=== PATIENT | male | born 1970 | race Caucasian/White ===

== ENCOUNTER → 2022-05-03 13:55 | Outpatient (CLI) | payer OTHER, SELFPAY ==
[2022-05-03 18:43] LABS: Basophils # 0.1 K/mm3 (0-0.2); Basophils % 1.1 % (0.1-2.0); Eosinophils # 0.1 K/mm3 (0.0-0.4); Eosinophils % 0.5 % (0.1-12.0); Hematocrit 47.8 % (42.0-52.0); Hemoglobin 15.7 g/dL (14.1-18.0); Lymphocytes # 2.7 K/mm3 (0.7-4.5); Lymphocytes % 25.4 % (10-50); Mean Corpuscular HGB Conc 32.9 g/dL (31.8-35.4); Mean Corpuscular Hemoglobin 33.7 pg (27.0-31.2); Mean Corpuscular Volume 102.3 fl (80-94); Mean Platelet Volume 9.7 fl (7.4-10.4); Monocytes # 0.5 K/mm3 (0.1-1.0); Monocytes % 4.5 % (1.7-9.3); Neutrophils # 7.2 K/mm3 (1.8-7.8); Neutrophils % 68.4 % (37.0-80.0); Platelet Count 160 K/mm3 (142-424); Red Blood Count 4.67 M/mm3 (4.60-6.20); Red Cell Distribution Width 13.6 % (11.5-17.5); White Blood Count 10.5 K/mm3 (4.8-10.8)
[2022-05-03 18:55] LABS: Hemoglobin A1C 6.2 % (4.0-6.0)
[2022-05-03 18:58] LABS: Alanine Aminotransferase 52 U/L (12-78); Albumin Level 4.4 g/dl (3.5-5.0); Albumin/Globulin Ratio 1.8 (1.1-1.8); Alkaline Phosphatase 133 U/L (38-126); Anion Gap 20.5 mEq/L (5-15); Aspartate Amino Transferase 107 U/L (17-59); Bilirubin,Total 0.9 mg/dl (0.2-1.3); Blood Urea Nitrogen 4 mg/dl (9-20); Calcium 8.9 mg/dl (8.4-10.2); Carbon Dioxide 22 mmol/L (22.0-30.0); Chloride 98 mmol/L (98-107); Chol/HDL Ratio 4.8 (1-3.5); Cholesterol 172 mg/dl (140-200); Estimated Glomerular Filt Rate 175 ml/min (>60); GFR (African American) 211 ML/MIN (>60); Globulin 2.5 g/dL (1.3-3.2); Glucose 115 mg/dl (74-100); HDL Cholesterol 36 mg/dl (40-60); Potassium 3.5 mmoL/L (3.5-5.1); Sodium 137 mmol/L (136-145); Total Protein,Serum 6.9 g/dl (6.3-8.2); Triglycerides 178 mg/dl (30-150); VLDL Cholesterol 36 mg/dL (0-40)
[2022-05-03 19:09] LABS: Direct LDL Cholesterol 109.95 mg/dL (100-129)
[2022-05-03 19:30] LABS: Prostate Specific Ag Screen 0.3 ng/ml (0.0-4.0); Thyroid Stimulating Hormone 2.93 uIU/mL (0.465-4.68)
== END ==
PROVIDERS: PCP Nurse Practitioner; Visit Provider Nurse Practitioner
DX: E11.9 Type 2 diabetes mellitus without complications (principal); Z12.5 Encounter for screening for malignant neoplasm of prostate; Z79.899 Other long term (current) drug therapy
CPT/HCPCS: 80053; 80061; 83036; 84443; 85025; G0103

== ENCOUNTER → 2022-07-01 08:49 | Outpatient (CLI) | payer OTHER, SELFPAY ==
--- NOTE | 2022-07-01 08:49 | US_ITS ---
FINAL REPORT TECHNIQUE: Ultrasound images of the abdomen were obtained. CLINICAL HISTORY: midline abdominal pain, concern for ventral hernia COMPARISON: None FINDINGS: ABDOMINAL ULTRASOUND COMPLETE: The liver is enlarged at 27 cm transverse diameter with fatty infiltration. There is moderate sludge with gallbladder wall thickening is a nonspecific finding. The common duct is normal at 3 mm. The right kidney measures 10.3 cm in length and is normal in echogenicity without hydronephrosis. The left kidney measures 12.4 cm in length and is normal in echogenicity without hydronephrosis. The spleen is borderline enlarged at 12.6 cm. The pancreas is partially obscured by overlying bowel gas. The visualized portions of the IVC are normal. The aorta is not visualized. The vena cava is unremarkable. No hernias identified. IMPRESSION: Hepatosplenomegaly with fatty infiltration. Borderline splenomegaly. No hernia identified. CT may be more sensitive exam. Reviewed, Interpreted and Dictated by Ankit Ruiz III, MD Transcribed by Hannah Varghese Authenticated and [facility]
== END ==
PROVIDERS: PCP Nurse Practitioner; Visit Provider Nurse Practitioner
DX: R10.9 Unspecified abdominal pain (principal)
CPT/HCPCS: 76700

== ENCOUNTER → 2022-07-15 13:46 | Outpatient (CLI) | payer OTHER, SELFPAY | PROVIDERS: PCP Nurse Practitioner; Visit Provider Nurse Practitioner | DX: G47.9 Sleep disorder, unspecified (principal); R40.0 Somnolence; R06.83 Snoring | CPT/HCPCS: G0399 ==

== ENCOUNTER → 2022-08-27 13:00 | Outpatient (CLI) | payer OTHER, SELFPAY ==
--- NOTE | 2022-08-27 13:04 | XR_ITS ---
FINAL REPORT CLINICAL HISTORY: right 5th finger pain, cyst COMPARISON: None FINDINGS: RIGHT HAND Three views demonstrate no acute fracture or dislocation. The visualized joint spaces are normally aligned. The soft tissues are unremarkable. IMPRESSION: No acute bony abnormality. Reviewed, Interpreted and Dictated by Roosevelt Rosen MD Transcribed by Hannah Varghese Authenticated and [facility]
== END ==
PROVIDERS: PCP Nurse Practitioner; Visit Provider Orthopaedic Surgery
DX: M79.641 Pain in right hand (principal); M67.40 Ganglion, unspecified site
CPT/HCPCS: 73130

== ENCOUNTER → 2022-10-19 11:42 | Outpatient (CLI) | payer OTHER, SELFPAY ==
[2022-10-19 18:58] LABS: Basophils # 0.1 K/mm3 (0-0.2); Basophils % 0.4 % (0.1-2.0); Eosinophils # 0.1 K/mm3 (0.0-0.4); Eosinophils % 1.1 % (0.1-12.0); Hematocrit 49.5 % (42.0-52.0); Hemoglobin 15.7 g/dL (14.1-18.0); Lymphocytes # 2.4 K/mm3 (0.7-4.5); Lymphocytes % 19.4 % (10-50); Mean Corpuscular HGB Conc 31.7 g/dL (31.8-35.4); Mean Corpuscular Hemoglobin 32.2 pg (27.0-31.2); Mean Corpuscular Volume 101.3 fl (80-94); Mean Platelet Volume 11.3 fl (7.4-10.4); Monocytes # 0.7 K/mm3 (0.1-1.0); Monocytes % 6.1 % (1.7-9.3); Neutrophils # 8.8 K/mm3 (1.8-7.8); Platelet Count 164 K/mm3 (142-424); Red Blood Count 4.88 M/mm3 (4.60-6.20); White Blood Count 12.1 K/mm3 (4.8-10.8)
[2022-10-19 19:01] LABS: Alanine Aminotransferase 39 U/L (12-78); Albumin Level 4.1 g/dl (3.5-5.0); Albumin/Globulin Ratio 1.6 (1.1-1.8); Alkaline Phosphatase 130 U/L (38-126); Anion Gap 18.2 mEq/L (5-15); Aspartate Amino Transferase 71 U/L (17-59); Bilirubin,Total 1.2 mg/dl (0.2-1.3); Blood Urea Nitrogen 4 mg/dl (9-20); Calcium 8.8 mg/dl (8.4-10.2); Carbon Dioxide 23 mmol/L (22.0-30.0); Chloride 98 mmol/L (98-107); Estimated Glomerular Filt Rate 226 ml/min (>60); GFR (African American) 273 ML/MIN (>60); Globulin 2.6 g/dL (1.3-3.2); Glucose 225 mg/dl (74-100); Lipase 202 U/L (23-300); Potassium 3.2 mmoL/L (3.5-5.1); Sodium 136 mmol/L (136-145); Total Protein,Serum 6.7 g/dl (6.3-8.2)
[2022-10-19 19:31] LABS: Thyroid Stimulating Hormone 6.63 uIU/mL (0.465-4.68)
== END ==
PROVIDERS: PCP Family Medicine; Visit Provider Family Medicine
DX: F10.10 Alcohol abuse, uncomplicated (principal); R40.0 Somnolence
CPT/HCPCS: 80053; 83690; 84443; 85025

== ENCOUNTER → 2022-12-30 08:37 | Outpatient (CLI) | payer OTHER, SELFPAY ==
--- NOTE | 2022-12-30 08:48 | XR_ITS ---
FINAL REPORT CLINICAL HISTORY: rt elbow pain COMPARISON: None FINDINGS: 3 views of the right elbow were obtained. There is no acute fracture or dislocation. The joint spaces are well preserved. There is no acute soft tissue abnormality. IMPRESSION: No acute abnormality identified. Reviewed, Interpreted and Dictated by Ankit Ruiz III, MD Transcribed by Hannah Varghese Authenticated and [facility]
== END ==
PROVIDERS: PCP Family Medicine; Visit Provider Orthopaedic Surgery
DX: M25.521 Pain in right elbow (principal); G56.21 Lesion of ulnar nerve, right upper limb
CPT/HCPCS: 73080

== ENCOUNTER 2022-12-30 09:38 | Outpatient (RCR) | payer OTHER, SELFPAY | END 2022-12-30 10:40 | disposition home or self-care (01) | LOC: OT 09:38 | PROVIDERS: Visit Provider Orthopaedic Surgery | DX: G56.21 Lesion of ulnar nerve, right upper limb (principal) ==

== ENCOUNTER → 2023-01-12 10:18 | Outpatient (CLI) | payer OTHER, SELFPAY ==
[2022-12-21 19:03] LABS: Alanine Aminotransferase 30 U/L (12-78); Albumin Level 4.5 g/dl (3.5-5.0); Albumin/Globulin Ratio 1.5 (1.1-1.8); Alkaline Phosphatase 130 U/L (38-126); Aspartate Amino Transferase 59 U/L (17-59); Bilirubin,Total 1.3 mg/dl (0.2-1.3); Blood Urea Nitrogen 5 mg/dl (9-20); Carbon Dioxide 22 mmol/L (22.0-30.0); Chloride 101 mmol/L (98-107); Estimated Glomerular Filt Rate 141 ml/min (>60); GFR (African American) 171 ML/MIN (>60); Globulin 3.1 g/dL (1.3-3.2); Glucose 160 mg/dl (74-100); Sodium 139 mmol/L (136-145); Total Protein,Serum 7.6 g/dl (6.3-8.2)
[2022-12-21 19:33] LABS: Thyroid Stimulating Hormone 3.55 uIU/mL (0.465-4.68)
[2022-12-21 19:42] LABS: Hemoglobin A1C 6.7 % (4.0-6.0)
== END ==
PROVIDERS: PCP Family Medicine; Visit Provider Family Medicine
DX: E11.9 Type 2 diabetes mellitus without complications (principal); E03.9 Hypothyroidism, unspecified; R19.7 Diarrhea, unspecified; K70.10 Alcoholic hepatitis without ascites; G89.29 Other chronic pain; M54.50 Low back pain, unspecified; Z72.0 Tobacco use; F10.10 Alcohol abuse, uncomplicated
CPT/HCPCS: 80053; 83036; 84443

== ENCOUNTER → 2023-01-21 11:23 | Outpatient (CLI) | payer OTHER, SELFPAY ==
--- NOTE | 2023-01-21 | ECG_ITS ---
APPROVED REPORT Exam: Resting ECG HR:74 bpm ECG Measurements Heart Rate 74 AXES NH 146 P 29 QRSd 113 QRS 75 QT 431 T 71 QTc 459 Conclusion SINUS RHYTHM MODERATE INTRAVENTRICULAR CONDUCTION DELAY [110+ ms QRS DURATION] NONSPECIFIC T-WAVE ABNORMALITY BORDERLINE ECG UNCONFIRMED REPORT Electronically signed by : Ralph Henley MD 01/24/2023 17:18:25
--- NOTE | 2023-01-21 11:38 | XR_ITS ---
FINAL REPORT CLINICAL HISTORY: Pre Op FINDINGS: PA and lateral views of the chest are obtained. There is no prior exam for comparison. The cardiac and mediastinal silhouettes are within normal limits. The lungs are clear. There is no pleural effusion, pneumothorax, or acute osseous abnormality. IMPRESSION: No radiographic evidence of acute cardiac or pulmonary disease. Reviewed, Interpreted and Dictated by Nena Ledezma MD Transcribed by Lucrecia Helm Authenticated and [facility]
--- NOTE | 2023-01-21 11:38 | XR_ITS ---
FINAL REPORT CLINICAL HISTORY: pain, mid back FINDINGS: AP, lateral, and swimmer's views of the thoracic spine were obtained. There is no prior exam for comparison. There is no acute fracture or malalignment. There is multilevel degenerative disc disease. Vertebral body height is preserved. Paraspinal soft tissues are within normal limits. IMPRESSION: Multilevel degenerative disc disease. Reviewed, Interpreted and Dictated by Nena Ledezma MD Transcribed by Lucrecia Helm Authenticated and [facility]
[2023-01-21 12:14] LABS: Basophils # 0.1 K/mm3 (0-0.2); Basophils % 0.9 % (0.1-2.0); Eosinophils # 0.1 K/mm3 (0.0-0.4); Hematocrit 54.6 % (42.0-52.0); Hemoglobin 17.1 g/dL (14.1-18.0); Lymphocytes # 2.7 K/mm3 (0.7-4.5); Lymphocytes % 26.1 % (10-50); Mean Corpuscular HGB Conc 31.4 g/dL (31.8-35.4); Mean Corpuscular Volume 98.6 fl (80-94); Mean Platelet Volume 9.8 fl (7.4-10.4); Monocytes # 0.6 K/mm3 (0.1-1.0); Monocytes % 6.3 % (1.7-9.3); Neutrophils # 6.7 K/mm3 (1.8-7.8); Neutrophils % 65.6 % (37.0-80.0); Platelet Count 117 K/mm3 (142-424); Red Blood Count 5.53 M/mm3 (4.60-6.20); Red Cell Distribution Width 14.2 % (11.5-17.5); White Blood Count 10.2 K/mm3 (4.8-10.8)
[2023-01-21 12:55] LABS: Alanine Aminotransferase 34 U/L (12-78); Albumin Level 4.6 g/dl (3.5-5.0); Albumin/Globulin Ratio 1.6 (1.1-1.8); Alkaline Phosphatase 99 U/L (38-126); Anion Gap 18.9 mEq/L (5-15); Aspartate Amino Transferase 45 U/L (17-59); Bilirubin,Total 0.6 mg/dl (0.2-1.3); Blood Urea Nitrogen 9 mg/dl (9-20); Calcium 9.2 mg/dl (8.4-10.2); Carbon Dioxide 23 mmol/L (22.0-30.0); Chloride 102 mmol/L (98-107); Estimated Glomerular Filt Rate 141 ml/min (>60); GFR (African American) 171 ML/MIN (>60); Globulin 2.8 g/dL (1.3-3.2); Glucose 147 mg/dl (74-100); Potassium 3.9 mmoL/L (3.5-5.1); Sodium 140 mmol/L (136-145); Total Protein,Serum 7.4 g/dl (6.3-8.2)
== END ==
PROVIDERS: PCP Family Medicine; Visit Provider Orthopaedic Surgery
DX: Z01.818 Encounter for other preprocedural examination (principal); G56.23 Lesion of ulnar nerve, bilateral upper limbs; M54.9 Dorsalgia, unspecified
CPT/HCPCS: 36415; 71046; 72072; 80053; 85025; 93005

== ENCOUNTER 2023-01-26 07:07 | Day surgery (SDC) | payer OTHER, SELFPAY ==
--- NOTE | 2023-01-25 09:15 | SUR.PREOP ---
Attempted to preop patient, no answer. Detailed message left with callback number
[2023-01-25 09:29] VITALS: BMI 26.5
[2023-01-26] VITALS (10 sets, daily range): BP systolic 118–156; BP diastolic 70–97; PULSE 69–81; RESP 15–26; TEMP 36.2–36.6; O2SAT 89–98
[2023-01-26 07:37] LABS: POC Glucose,Bedside 166 (70-110)
--- NOTE | 2023-01-26 08:15 | EXP.ANES.CKL ---
[facility] Disclaimer: The information contained in this section may have been updated after the patient was seen, as this information can be updated by other users. Medical History Abdominal wall pain Alcohol abuse Back pain COPD (chronic obstructive pulmonary disease) COPD (chronic obstructive pulmonary disease) with acute bronchitis Degenerative disc disease, lumbar Diabetes Diarrhea Elevated BP without diagnosis of hypertension Ganglion cyst Has daytime drowsiness Hepatomegaly Hypothyroidism Neck pain Scoliosis (and kyphoscoliosis), idiopathic Sleep apnea Sleep disturbance Snoring Steatohepatitis, alcoholic Tobacco abuse Type 2 diabetes mellitus without complications Surgical History History of hernia surgery Family History Other Cancer Social History Smoking Status: Current every day smoker alcohol intake: current substance use type: denies use current occupational status: unemployed Travel in the last 8 weeks: None household members: significant other housing: house marital status: [facility] Anesthesia Checklist Patient Identification Patient Identification: Arm Band and Verbal (Name & ) Structural Data Admitted From: Home Planned Operative Procedure/s: cubital tunnel release Consent for Planned Operative Procedure(s) Verified: Yes NPO Status Verified Time NPO: 00:00 Chart Verification Results Verified: CBC and BMP Additional verifications Anesthesia Reactions: No Hx Blood Transfusions: No Blood Transfusion Reaction: No Airway Assessment Mallampati Score:: Class II C-Spine Mobility Assessed: Yes TMJ Mobility Assessed: Yes Dentition: Edentulous Neurological Assessment Level of Consciousness: Awake Hx Seizures: No Numbness or tingling in extremities: Yes Anesthesia Plan Anesthesia Risk discussed: Yes Anesthesia Plan: Verified ASA Class: III Anesthesia Type: General
--- NOTE | 2023-01-26 09:55 | EXP.OP.NOTE ---
Date of procedure: 01/26/23 Pre-op Diagnosis:: Right cubital tunnel syndrome Post-op Diagnosis:: Same Procedure performed:: Right ulnar nerve decompression at the elbow, cubital tunnel release Surgeon:: Alfonso Ozuna DO BISCUIT PACKER:: Kavin Thapa Anesthesia: GETA Estimated blood loss (mL): 0 Operative findings:: See OR note below Operative note:: Patient was identified preoperatively. Right elbow marked with yes my initials. Transferred operative suite. Placed upon the operating bed. General anesthesia was administered airway was secured. Right upper extremity was then prepped and draped in normal sterile fashion. Once prepped and draped final operative timeout performed to identify proper patient procedure and extremity. Everyone involved in the case agreed. There is no counter indications to beginning. He did receive preoperative antibiotics. Marking pen was used to angel plan incision over the cubital tunnel medial epicondyle was marked along with the olecranon. Esmarch was used to exsanguinate the extremity and pneumatic tourniquet inflated to 250 mmHg. Skin knife was used to incise the skin and soft tissue. Careful dissection was taken down bluntly with scissors. The cubital tunnel was identified between the medial epicondyle and olecranon and dissection with the scissors into the cubital tunnel was performed. The ulnar nerve was then identified. And then attention was brought to full release of the cubital tunnel Dissection was taken distally as the nerve enters the 2 heads of the FCU muscle. And dissection was taken proximally to the intermuscular septum arcade of [place]. Nerve was fully decompressed. Once decompression of the nerve was performed ulnar nerve was left in situ. Copious irrigation wound performed. Subcutaneous layers closed with Vicryl stitch. Skin closed with nylon stitch. Sterile dressing placed tourniquet deflated. Patient waken anesthesia taken recovery in stable condition.. Condition: stable Disposition: PACU Complications:: None apparent
--- NOTE | 2023-01-26 09:59 | P.PNANES_ITS ---
[facility] Anesthesia Record Part I Anesthesia Record I Intake, IV Amount: 800 Hydration: Adequate Estimated blood loss (mL): 0 Urine output (mL): 0 Blood Products used (#): none Blood Pressure: 121/73 SaO2: 92 Pulse Rate: 77 Airway Patency: Patent Respiratory Rate: 16 Temperature: 97.2 F Patient is:: Drowsy and Stable Stable to PACU at:: 09:55
[2023-01-26 10:05] LABS: POC Glucose,Bedside 154 (70-110)
--- NOTE | 2023-01-26 14:06 | P.PNANES_ITS ---
[facility] Anesthesia Record Part II Anesthesia Record Part II Discharge Time: 10:25 Destination: Surgical Day Care (OP Surgery) PACU nurse assessment reviewed?: Yes Patient Condition:: Good Anesthesia Complications:: None Swallowing reflex intact?: Yes Airway Patency: Patent Cyanosis?: No Blood Pressure: 156/97 SaO2: 93 Respiratory Rate: 15 Pulse Rate: 71 Temperature: 97.8 F Mental Status: Alert & Oriented Pain level:: 0 Nausea and/or vomitting:: None Intake, IV Amount: 0 Hydration: Adequate
== END 2023-01-26 11:03 | disposition home or self-care (01) ==
PROVIDERS: Orthopaedic Surgery; PCP Family Medicine; Visit Provider Orthopaedic Surgery
PROC: (CPT 64718; principal; 2023-01-26 08:45)
DX: G56.21 Lesion of ulnar nerve, right upper limb (principal)
CPT/HCPCS: 64718; 82962; 96374; J2405

== ENCOUNTER → 2023-02-10 12:53 | Outpatient (CLI) | payer OTHER, SELFPAY ==
--- NOTE | 2023-02-10 12:57 | XR_ITS ---
FINAL REPORT CLINICAL HISTORY: Rt elbow pain COMPARISON: 12/30/2022 FINDINGS: AP, oblique, and lateral views of the right elbow were obtained. There is no acute fracture or dislocation. Joint space is preserved. There is posterior soft tissue swelling present, worse than noted on the prior exam of December 2022. IMPRESSION: No acute osseous abnormality of the right elbow. Posterior soft tissue swelling present, more prominent than noted on the prior exam of December 2022. Reviewed, Interpreted and Dictated by Ankit Ruiz III, MD Transcribed by Teresa Bowers Authenticated and [facility]
== END ==
PROVIDERS: PCP Family Medicine; Visit Provider Orthopaedic Surgery
DX: G56.21 Lesion of ulnar nerve, right upper limb (principal)
CPT/HCPCS: 73080

== ENCOUNTER → 2023-03-11 13:56 | Outpatient (CLI) | payer OTHER, SELFPAY ==
--- NOTE | 2023-03-11 14:00 | CT_ITS ---
FINAL REPORT CLINICAL HISTORY: lung cancer screening. Currently smokes 1 pack per day for 40 yrs. COPD. 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 COMPARISON: None FINDINGS: CT CHEST LOW DOSE SCREENING HISTORY: Screening exam for lung cancer. 53-year-old male, Current smoker, 40 pack year smoking history DOSE: CTDIvol: 2.9 mGy, DLP: 105.25 mGy*cm COMPARISON: None . TECHNIQUE: Axial CT without IV contrast administration using low dose protocol FINDINGS: No acute lung disease is present . No pulmonary lesions are seen suspicious for neoplasm. There are mild changes of centrilobular emphysema. No pleural or pericardial effusion is seen . No adenopathy or mass lesion is present . Mild gynecomastia is present. IMPRESSION: No focal nodules or masses are identified. Mild changes of centrilobular emphysema. Mild gynecomastia, responsible for the S designation in this patient. LUNG RADS CATEGORY 1S RECOMMENDATION: 12 month LDCT follow up Reviewed, Interpreted and Dictated by Roosevelt Rosen MD Transcribed by Teresa Bowers Authenticated and [facility]
--- NOTE | 2023-03-11 15:44 | PC.NURSE ---
PFT and 6 Minute Walk Test completed without incident. Albuterol 0.083% given via HHN, per protocol, Pt tolerated tx well.
== END ==
PROVIDERS: PCP Family Medicine; Visit Provider Internal Medicine Pulmonary Disease
DX: J44.9 Chronic obstructive pulmonary disease, unspecified (principal); R06.09 Other forms of dyspnea; F17.210 Nicotine dependence, cigarettes, uncomplicated
CPT/HCPCS: 71271; 94060; 94618; 94726; 94729

== ENCOUNTER → 2023-08-02 20:16 | Outpatient (CLI) | payer OTHER, SELFPAY | LOC: SL 20:19 | PROVIDERS: PCP Family Medicine; Visit Provider Specialist | DX: G47.33 Obstructive sleep apnea (adult) (pediatric) (principal) ==

== ENCOUNTER 2023-08-30 12:03 | Outpatient (CLI) | payer OTHER, SELFPAY ==
[2023-08-30 19:08] LABS: Basophils # 0.1 K/mm3 (0-0.2); Basophils % 0.7 % (0.1-2.0); Eosinophils # 0.1 K/mm3 (0.0-0.4); Eosinophils % 0.8 % (0.1-12.0); Hematocrit 51.5 % (42.0-52.0); Lymphocytes # 2.7 K/mm3 (0.7-4.5); Lymphocytes % 23.7 % (10-50); Mean Corpuscular HGB Conc 32.9 g/dL (31.8-35.4); Mean Corpuscular Hemoglobin 33.3 pg (27.0-31.2); Mean Corpuscular Volume 101.2 fl (80-94); Mean Platelet Volume 10.8 fl (7.4-10.4); Monocytes # 0.8 K/mm3 (0.1-1.0); Monocytes % 7.2 % (1.7-9.3); Neutrophils # 7.6 K/mm3 (1.8-7.8); Neutrophils % 67.6 % (37.0-80.0); Platelet Count 107 K/mm3 (142-424); Red Blood Count 5.09 M/mm3 (4.60-6.20); Red Cell Distribution Width 13.8 % (11.5-17.5); White Blood Count 11.3 K/mm3 (4.8-10.8)
[2023-08-30 19:55] LABS: Alanine Aminotransferase 50 U/L (12-78); Albumin Level 4.5 g/dl (3.5-5.0); Albumin/Globulin Ratio 1.8 (1.1-1.8); Alkaline Phosphatase 138 U/L (38-126); Anion Gap 16.8 mEq/L (5-15); Aspartate Amino Transferase 77 U/L (17-59); Bilirubin,Total 1.9 mg/dl (0.2-1.3); Blood Urea Nitrogen 5 mg/dl (9-20); Calcium 9.6 mg/dl (8.4-10.2); Carbon Dioxide 23 mmol/L (22.0-30.0); Chloride 99 mmol/L (98-107); Estimated Glomerular Filt Rate 174 ml/min (>60); GFR (African American) 210 ML/MIN (>60); Globulin 2.5 g/dL (1.3-3.2); Glucose 116 mg/dl (74-100); Lipase 86 U/L (23-300); Potassium 3.8 mmoL/L (3.5-5.1); Sodium 135 mmol/L (136-145)
== END 2023-08-30 23:59 | disposition home or self-care (01) ==
LOC: LAB.DROPOF 08-31 12:04
PROVIDERS: PCP Family Medicine; Visit Provider Family Medicine
DX: K70.10 Alcoholic hepatitis without ascites (principal); Z79.899 Other long term (current) drug therapy
CPT/HCPCS: 80053; 83690; 85025

== ENCOUNTER 2023-09-01 09:19 | Outpatient (CLI) | payer OTHER, SELFPAY ==
[2023-09-01 15:56] LABS: Thyroid Stimulating Hormone 5.18 uIU/mL (0.465-4.68)
== END 2023-09-01 23:59 | disposition home or self-care (01) ==
LOC: LAB.DROPOF 09-05 09:19
PROVIDERS: PCP Family Medicine; Visit Provider Family Medicine
DX: E03.9 Hypothyroidism, unspecified (principal)
CPT/HCPCS: 84443

== ENCOUNTER 2023-10-14 09:30 | Outpatient (CLI) | payer OTHER, SELFPAY ==
--- NOTE | 2023-10-14 09:37 | XR_ITS ---
FINAL REPORT CLINICAL HISTORY: low back pain COMPARISON: None FINDINGS: No fracture is identified. Disc spaces are well-preserved. Minimal endplate degenerative spurring is present. Alignment is normal. IMPRESSION: Minimal endplate degenerative spurring, without acute bony abnormality identified. Reviewed, Interpreted and Dictated by Suzanne Gibbs MD Transcribed by Teresa Bowers Authenticated and . [facility]
== END 2023-10-14 23:59 | disposition home or self-care (01) ==
LOC: RAD 09:32
PROVIDERS: PCP Family Medicine; Visit Provider Family Medicine
DX: M54.50 Low back pain, unspecified (principal); G89.29 Other chronic pain
CPT/HCPCS: 72100

== ENCOUNTER 2023-12-02 23:55 | Emergency (ER) | payer OTHER, SELFPAY ==
[2023-12-02 23:55] VITALS: BP 125/92; PULSE 103; RESP 17; TEMP 36.9; O2SAT 89; BMI 28.3
--- NOTE | 2023-12-03 00:50 | XR_ITS ---
PROCEDURE INFORMATION: Exam: XR Chest Exam date and time: 12/03/2023 1:18 AM Age: 53 years old Clinical indication: Shortness of breath; Additional info: SOA TECHNIQUE: Imaging protocol: Radiologic exam of the chest. Views: 1 view. COMPARISON: CT LUNG SCREENING 03/11/2023 2:01 PM FINDINGS: Lungs: There are some parenchymal consolidations at the lung bases, [id number], which may reflect underlying infection and are also seen on the concurrently interpreted abdominal CT. Pleural spaces: No large effusion or pneumothorax. Heart/Mediastinum: Stable cardiac and mediastinal contours. Vasculature: There are calcifications of the aortic arch. Bones/joints: No evidence of acute osseous abnormalities within the visualized portions of the thoracic spine and ribs. Osseous structures appear appropriate for patient age. IMPRESSION: There are some parenchymal consolidations at the lung bases, [id number], which may reflect underlying infection and are also seen on the concurrently interpreted abdominal CT.
--- NOTE | 2023-12-03 00:50 | CT_ITS ---
PROCEDURE INFORMATION: Exam: CT Abdomen And Pelvis With Contrast Exam date and time: 12/03/2023 1:11 AM Age: 53 years old Clinical indication: Other: Abd distension, jaundice; Additional info: Abd distension, jaundice, ? new liver failure TECHNIQUE: Imaging protocol: Computed tomography of the abdomen and pelvis with contrast. Radiation optimization: All CT scans at this facility use at least one of these dose optimization techniques: automated exposure control; mA and/or kV adjustment per patient size (includes targeted exams where dose is matched to clinical indication); or iterative reconstruction. Contrast material: ISOVUE; Contrast volume: 75 ml; Contrast route: IV; COMPARISON: 1. CT LUNG SCREENING 03/11/2023 2:01 PM 2. CR XR CHEST 2V 01/21/2023 11:44 AM 3. CR XR THORACIC SPINE 3V 01/21/2023 11:44 AM FINDINGS: Lungs: Parenchymal consolidations at the bases could be on the basis of atelectasis but underlying infection is not completely excluded. Liver: The liver demonstrates a cirrhotic morphology with nodular contour and volume redistribution. Numerous hypodense lesions throughout the liver may reflect regenerative nodules but are nonspecific by CT. Gallbladder and biliary ducts: The gallbladder is moderately distended. Pancreas: There is fatty replacement of the pancreas. Spleen: The spleen is enlarged. Adrenal glands: The adrenal glands appear normal. Kidneys and ureters: There are no soft tissue renal masses or hydronephrosis. Stomach and bowel: There is rectal and colonic wall thickening which may reflect portal colopathy. Appendix: No evidence of appendicitis. Intraperitoneal space: There is large volume ascites. Vasculature: The abdominal aorta and its major branches appear normal without evidence of aneurysm or stenosis. There are pelvic phleboliths. Lymph nodes: No lymphadenopathy. Urinary bladder: Unremarkable as visualized. Reproductive: No acute process. Bones/joints: The visualized osseous structures of the abdomen and pelvis appear normal for patient age. Soft tissues: Unremarkable. IMPRESSION: 1. Parenchymal consolidations at the bases could be on the basis of atelectasis but underlying infection is not completely excluded. 2. Cirrhosis and portal hypertension with large volume ascites. Numerous tiny hypodense nodules throughout the liver could reflect regenerative nodules but are indeterminate by CT. Further evaluation with nonemergent contrast-enhanced liver MR may prove useful. 3. Thick-walled colon possibly reflecting portal colopathy, correlate with any concern for colitis.
[2023-12-03 00:59] LABS: Basophils # 0.1 K/mm3 (0-0.2); Basophils % 0.5 % (0.1-2.0); Eosinophils % 0.4 % (0.1-12.0); Hematocrit 44.7 % (42.0-52.0); Hemoglobin 14.2 g/dL (14.1-18.0); Lymphocytes # 1.3 K/mm3 (0.7-4.5); Lymphocytes % 12.8 % (10-50); Mean Corpuscular HGB Conc 31.7 g/dL (31.8-35.4); Mean Corpuscular Hemoglobin 33.9 pg (27.0-31.2); Mean Corpuscular Volume 107.1 fl (80-94); Mean Platelet Volume 9.6 fl (7.4-10.4); Monocytes # 0.6 K/mm3 (0.1-1.0); Monocytes % 5.8 % (1.7-9.3); Neutrophils # 7.9 K/mm3 (1.8-7.8); Neutrophils % 80.5 % (37.0-80.0); Platelet Count 124 K/mm3 (142-424); Red Blood Count 4.18 M/mm3 (4.60-6.20); Red Cell Distribution Width 14.3 % (11.5-17.5); White Blood Count 9.9 K/mm3 (4.8-10.8)
[2023-12-03 01:02] LABS: Lactic Acid 1.4 mmol/L (0.7-2.1)
[2023-12-03 01:03] LABS: Alanine Aminotransferase 42 U/L (12-78); Albumin Level 3.2 g/dl (3.5-5.0); Alkaline Phosphatase 175 U/L (38-126); Anion Gap 9.5 mEq/L (5-15); Aspartate Amino Transferase 138 U/L (17-59); Bilirubin,Total 5.1 mg/dl (0.2-1.3); Blood Urea Nitrogen 4 mg/dl (9-20); Calcium 8.4 mg/dl (8.4-10.2); Carbon Dioxide 33 mmol/L (22.0-30.0); Chloride 90 mmol/L (98-107); Creatinine Clearance Estimated 270 mL/min (50-200); Estimated Glomerular Filt Rate 225 ml/min (>60); GFR (African American) 272 ML/MIN (>60); Globulin 3.2 g/dL (1.3-3.2); Glucose 153 mg/dl (74-100); INR 1.36 (0.9-1.1); Lipase 95 U/L (23-300); Prothrombin Time 14.8 seconds (10.1-12.5); Sodium 130 mmol/L (136-145); Total Protein,Serum 6.4 g/dl (6.3-8.2)
[2023-12-03 01:06] LABS: Potassium 2.5 mmoL/L (3.5-5.1)
[2023-12-03] MEDS: IOPAMIDOL-370 (76%);100ML BOTTLE 75 ML IV (01:32)
[2023-12-03] MEDS: SODIUM CHLORIDE 0.9% 10ML SYR (RAD ONLY) 10 ML IV (01:32)
--- NOTE | 2023-12-03 01:55 | HMH.EDGENADL ---
Discharge Plan Disposition Chief Complaint: Abdominal Pain Prescriptions Prescriptions: No Action methocarbamol 500 mg tablet 500 mg PO ONCE atorvastatin 20 mg tablet 20 mg PO DAILY (DME) True Metrix Glucose Test Strip Strip See Rx Instructions .Route Qty: 50 11RF Rx Instructions: As directed ipratropium-albuterol 0.5 mg-3 mg(2.5 mg base)/3 mL solution for nebulization See Rx Instructions .ROUTE .COMPLEX Qty: 270 3RF Dose Instruction: Inhale the contents of 1 vial via nebulizer 4 times daily as needed for shortness of breath or wheezing. Rx Instructions: Inhale the contents of 1 vial via nebulizer 4 times daily as needed for shortness of breath or wheezing. albuterol sulfate [Ventolin HFA] 90 mcg/actuation HFA aerosol inhaler See Rx Instructions .ROUTE .COMPLEX Qty: 18 1RF Dose Instruction: Inhale 2 Puffs into the lungs every 4 hours as needed for Wheezing. Rx Instructions: Inhale 2 Puffs into the lungs every 4 hours as needed for Wheezing. trazodone 150 mg tablet See Rx Instructions .ROUTE .COMPLEX Qty: 90 1RF Dose Instruction: Take 1 tablet by mouth nightly. Rx Instructions: Take 1 tablet by mouth nightly. hydroxyzine pamoate 25 mg capsule See Rx Instructions .ROUTE .COMPLEX Qty: 60 2RF Dose Instruction: Take 1 to 2 Capsules by mouth at bedtime nightly as needed for sleep. Rx Instructions: Take 1 to 2 Capsules by mouth at bedtime nightly as needed for sleep. levothyroxine 25 mcg capsule 25 mcg PO DAILY Qty: 30 4RF Stiolto Respimat 2.5-2.5 mcg/actuation mist See Rx Instructions .ROUTE .COMPLEX Qty: 4 2RF Dose Instruction: INHALE TWO PUFFS INTO THE LUNGS ONCE DAILY Rx Instructions: INHALE TWO PUFFS INTO THE LUNGS ONCE DAILY tramadol 50 mg tablet 50 mg PO HS PRN (Reason: pain) Qty: 30 2RF Referrals Follow up/Referrals: Suzanne Ames MD [Primary Care Provider] - See instructions Instructions Patient Instructions: DI for Acute Abdominal Pain Print Language Print Language: Chinese Discharge ED Provider: Rell Jones Adult [facility] General Chief complaint: Abdominal Pain Stated complaint: stomach bloating x3 days Time Seen by Provider: 12/03/23 00:35 Mode of Arrival: EMS Source of Information: Patient and EMS Limitations: No Limitations Description of Symptoms (Recalled from ER Triage Doc. by RN): Patient to ED via [facility] with complaints of abdominal distention and not feeling right for 2-3 days. Patient appears jaundice during assessment. He states that he stopped drinking approx one month ago, but he drank half of a fifth of whiskey every day [id number]. Patient denies fever or any liver dx/issues at present. History of Present Illness HPI narrative: 53-year-old male presents to the ER with EMS for concerns of abdominal distention, feeling unwell. Patient reports the abdominal distention started approximately 1 week ago. Patient reports he drank half a pint of whiskey every day for 30 years. He states he stopped drinking approximately 2 weeks ago, but 1 week ago started having swelling. He states he drank water and all seem to go to his belly. Patient also reports in the last few days he has been having leg swelling. He states he is feeling short of breath but has a history of COPD and emphysema. Patient denies any history of known liver or kidney dysfunction. He states his appetite is decreased due to the significant swelling in his abdomen Related Data Home Medications ?Medication ?Instructions ?Recorded ?Confirmed methocarbamol 500 mg tablet 500 mg PO ONCE muscle 03/11/22 08/30/23 atorvastatin 20 mg tablet 20 mg PO DAILY 03/28/23 08/30/23 Previous Rx's ?Medication ?Instructions ?Recorded blood sugar diagnostic (True #50 ea 04/13/23 Metrix Glucose Test Strip) Ventolin HFA 90 mcg/actuation See Rx Instructions .Route 07/08/23 aerosol inhaler (albuterol sulfate) .COMPLEX #18 grams ipratropium 0.5 mg-albuterol 3 mg See Rx Instructions .Route 07/08/23 (2.5 mg base)/3 mL nebulization .COMPLEX #270 mL soln trazodone 150 mg tablet See Rx Instructions .Route 08/01/23 .COMPLEX #90 tabs hydroxyzine pamoate 25 mg capsule See Rx Instructions .Route 08/15/23 .COMPLEX #60 caps levothyroxine 25 mcg capsule 25 mcg PO DAILY #30 caps 09/06/23 tiotropium 2.5 mcg-olodaterol 2.5 See Rx Instructions .Route 09/29/23 mcg/actuation mist for inhalation .COMPLEX #4 grams (Stiolto Respimat) tramadol 50 mg tablet 50 mg PO HS PRN pain #30 tabs 11/24/23 Allergies Allergy/AdvReac Type Severity Reaction Status Date / Time amoxicillin AdvReac Hives Verified 08/30/23 11:51 Penicillins AdvReac Hives Verified 08/30/23 11:51 [facility] Disclaimer: The information contained in this section may have been updated after the patient was seen, as this information can be updated by other users. Medical History LEANNA on CPAP Degenerative disc disease Encounter for screening for malignant neoplasm of lung Smoking greater than 30 pack years Dyspnea on exertion Sleep apnea COPD (chronic obstructive pulmonary disease) Back pain Diarrhea Hypothyroidism Ganglion cyst Alcohol abuse Steatohepatitis, alcoholic Sleep disturbance Inconclusive HSAT on 07/21/2022. Total recording time 4 hours, AHI 1, RDI 2, loud snoring and increased sleep related arousals were recorded during 38% of total sleep time. Patient was unable to sleep well throughout the night and results are not consistent with reorted sleep pattern. Snoring Has daytime drowsiness Neck pain Scoliosis (and kyphoscoliosis), idiopathic Degenerative disc disease, lumbar Tobacco abuse Advised to consider smoking cessation. COPD (chronic obstructive pulmonary disease) with acute bronchitis Hepatomegaly Type 2 diabetes mellitus without complications Elevated BP without diagnosis of hypertension Will request recent records, labs, consult notes. Abdominal wall pain Discussed with patient DDx: ventral abdominal hernia vs diastasis recti. Will request recent imaging. Diabetes Surgical History History of elbow surgery History of hernia surgery Family History Other Cancer Social History Smoking Status: Current every day smoker alcohol intake: current alcohol intake frequency: 3 or more drinks per day substance use type: denies use current occupational status: unemployed Travel in the last 8 weeks: None household members: significant other housing: house marital status: ROS Obtained: Yes All systems reviewed & no additional complaints except as documented Constitutional Constitutional: Reports poor appetite Cardiovascular Cardiovascular: Reports dyspnea and Reports edema Respiratory Respiratory: Reports dyspnea Gastrointestinal Gastrointestingal: Reports other (Positive for distention) Physical Exam General General appearance: alert, in no apparent distress and other (Ill-appearing but nontoxic, not in extremis) Head Head exam: atraumatic and normocephalic Eye Eye exam: Present PERRL, EOMI and jaundice ENT ENT exam: Present mucous membranes moist Neck Neck exam: Present normal inspection and full ROM Chest Chest inspection: Present symmetric chest wall rise; Absent tenderness Respiratory Respiratory exam: Present normal lung sounds bilaterally and other (Requiring 2 L nasal cannula, no oxygen requirement at baseline); Absent respiratory distress, wheezes or stridor Cardiovascular Cardiovascular exam: Present normal rhythm and tachycardia (Rate around 100) Abdominal Exam Abdominal exam: Present soft, distention (Significantly distended, tense abdomen, nontender, nonacute abdomen), organomegaly (Obvious hepatomegaly) and other (Fluid wave); Absent tenderness, guarding or rebound Extremities Exam Extremities exam: Present full ROM and edema (2+ bilateral lower extremity pitting edema) Neurological Exam Neurological exam: Present alert and oriented X3; Absent motor sensory deficit Psychiatric Psychiatric exam: Present normal affect and normal mood Skin Skin exam: Present warm and dry Medical Decision Making Medical Records Medical records reviewed: Yes I reviewed the patient's medical records. MR Comment: Most recent family medicine note from August demonstrates patient was to follow-up in 4 months for COPD, sleep apnea, hypothyroid, and does document a history of alcoholic hepatitis without ascites. Danny Inquiry Pt receiving controlled substance: No Vital Signs: 12/02/23 23:55 Temperature 98.4 F Temperature Source Oral Pulse Rate [Right] 103 H Respiratory Rate 17 Blood Pressure [Right Arm] 125/92 H Blood Pressure Mean [Right Arm] 103 Blood Pressure Position [Right Arm] Sitting 02 Sat by Pulse Oximetry 89 L Oxygen Delivery Method Nasal Cannula Oxygen Flow Rate (LPM) 2 Lab Data Lab Results 12/03/23 00:05: WBC 9.9, RBC 4.18 L, Hgb 14.2, Hct 44.7, MCV 107.1 H, MCH 33.9 H, MCHC 31.7 L, RDW 14.3, Plt Count 124 L, MPV 9.6, Neut % (Auto) 80.5 H, Lymph % (Auto) 12.8, [place] % (Auto) 5.8, Eos % (Auto) 0.4, Baso % (Auto) 0.5, Neut # (Auto) 7.9 H, Lymph # (Auto) 1.3, [place] # (Auto) 0.6, Eos # (Auto) 0.0, Baso # (Auto) 0.1, PT 14.8 H, INR 1.36 H, Sodium 130 L, Potassium 2.5 L*, Chloride 90 L, Carbon Dioxide 33 H, Anion Gap 9.5, BUN 4 L, Creatinine 0.40 L, Estimated Creat Clear 270, Estimated GFR 225, Est GFR ( Amer) 272, Glucose 153 H, Lactate 1.4, Calcium 8.4, Total Bilirubin 5.1 H, AST 138 H, ALT 42, Alkaline Phosphatase 175 H, Total Protein 6.4, Albumin 3.2 L, Globulin 3.2, Albumin/Globulin Ratio 1.0 L, Lipase 95 12/03/23 03:05: Fluid Source Paracentesis fluid, Fluid Volume 10, Fluid Appearance Normal 12/03/23 00:05 12/03/23 00:05 Orders (Tests/Meds): ED MEDICATIONS Generic Name Dose Route Start Last Admin Trade Name Freq PRN Reason Stop Dose Admin Potassium Chloride/Water 100 mls @ 50 mls/hr 12/03/23 01:45 12/03/23 02:05 Potassium Chloride 20meq/100ml Ivpb IV 12/03/23 05:44 50 mls/hr Q2H FLAVIO Administration Sodium Chloride 10 ml 12/03/23 01:29 12/03/23 01:32 Sodium Chloride 0.9% 10ml Syr (Rad Only) IV 01/02/24 01:28 10 ml NEEDED PRN Administration Maintain IV Site Discontinued Medications Generic Name Dose Route Start Last Admin Trade Name Freq PRN Reason Stop Dose Admin Iopamidol 75 ml 12/03/23 01:29 12/03/23 01:32 Iopamidol-370 (76%);100ml Bottle IV 12/03/23 01:30 75 ml ONCE ONE Administration Potassium Chloride 40 meq 12/03/23 01:44 12/03/23 02:05 Potassium Chloride 20meq Tab PO 12/03/23 01:45 40 meq ONCE ONE Administration ORDERS Category Date Time Status CT abdomen pelvis w con Stat Cat Scan 12/03/23 00:50 Completed XR chest portable Stat Exams 12/03/23 00:50 Completed Body Fluid: Cell Count w/ Diff Stat Lab 12/03/23 03:05 Results Complete Blood Count Auto Diff Stat Lab 12/03/23 00:05 Completed Comprehensive Metabolic Panel Stat Lab 12/03/23 00:05 Completed Lactic Acid Stat Lab 12/03/23 00:05 Completed Lipase Stat Lab 12/03/23 00:05 Completed Prothrombin Time INR Stat Lab 12/03/23 00:05 Completed Urinalysis and Microscopic Stat Lab 12/03/23 00:50 Ordered Medical Decision Narrative: In summary, this 53-year-old male presents to the emergency department today with abdominal distention, generalized malaise. On initial evaluation patient is slightly tachycardic, not an extremis, he is requiring nasal cannula with severe abdominal distention, fluid wave, not acute abdomen, peripheral pitting edema. Differential diagnosis includes but is not limited to decompensated liver failure, kidney dysfunction, cirrhosis, ascites, I considered SBP, electrolyte abnormality, malignancy, biliary obstruction. Based on these concerns, I ordered CT imaging, serum labs. ECG personally interpreted demonstrates normal sinus rhythm, rate 96, normal axis, normal PA, QTc slightly prolonged at 468, no STEMI. Labs personally reviewed demonstrate no leukocytosis or anemia, thrombocytopenia with platelets 124, PT/INR elevated, CMP notable for significant hypokalemia, potassium 2.5, creatinine similar to previous, bilirubin newly elevated to 5.1, previously 1.9, AST nearly doubled from a few months ago, now 138, alk phos 175, ALT normal at 42, new hypoalbuminemia, lipase normal. Patient is receiving oral and IV potassium repletion. Small amount of fluids is slowly running with the potassium for comfort. MELD 22. XR personally interpreted demonstrates mild parenchymal consolidations at the lung bases, patient does not have cough, fever, or leukocytosis. I do not believe he requires intervention for this at this time and this is likely more related to atelectasis. CT imaging personally interpreted demonstrate obvious ascites, severe hepatomegaly, findings consistent with ascites and cirrhotic liver disease. See radiology read for final interpretation Paracentesis was performed. Patient tolerated procedure well. Diagnostic studies demonstrate no findings of SBP. After pressure was relieved from the abdomen with paracentesis, patient was able to pass urine. Urinalysis demonstrates findings consistent with infection. He is receiving Rocephin for this. I had an interactive discussion with Dr. Andrews at transfer center for concerns of acute decompensated liver failure. Patient was accepted as an ED to ED transfer to [facility]. Patient is amenable to the plan for transfer. He continues to be stable and states he feels significantly improved after fluid was removed. Patient is continuing to receive IV potassium repletion and requires ALS transfer. [facility] will transfer the patient. He was transferred in stable condition. Procedures Paracentesis Time Out Performed: Yes Indication: other (Ascites, possible SBP) Procedure: therapeutic paracentesis Location: RLQ Local Anesthetic: lidocaine 1% Amount of anesthesia used (mL): 7 Bedside Ultrasound Used: yes, Ascites confirmed and location marked Preparation: sterile prep and drape Amount of fluid obtained (mL): 4,200 Fluid: clear (Linda color) and sent to lab for analysis Post Procedure Exam: awake, alert, normal BP, normal HR and normal SpO2 Patient Tolerated Procedure: well Complications: none Additional Comments: Patient provided written and verbal consent for the procedure after discussing risks and benefits. The safety centesis kit with a 6 Amharic paracentesis catheter used. Fluid sent to lab for diagnostic studies. Gauze and Tegaderm applied over the site after catheter removal. Patient tolerated procedure well. Critical Care Critical Care Time Critical Care Time: Yes Attestation: On 12/02/23, the high probability of a clinically significant, sudden or life threatening deterioration of the following system(s) required my full and direct attention, intervention and personal management. The time I documented below is in addition to time spent performing reported procedures but includes the following listed in this critical care notation. Total Time Total Critical Care Time: 38
--- NOTE | 2023-12-03 02:02 | ECG_ITS ---
APPROVED REPORT Exam: Resting ECG HR:96 bpm ECG Measurements Heart Rate 96 AXES LA 120 P 18 QRSd 103 QRS 48 QT 414 T -24 QTc 468 Conclusion SINUS RHYTHM NONSPECIFIC ST & T-WAVE ABNORMALITY PROLONGED QT INTERVAL ABNORMAL ECG T wave inversions in lead III, aVF, no reciprocal changes, no STEMI Electronically signed by : LADONNA CAMPBELL, 12/03/2023 06:09:41
[2023-12-03] MEDS: KCl 20mEq/100ml 100 ML 50 MEQ IV ×2 (02:05→03:49)
[2023-12-03] MEDS: POTASSIUM CHLORIDE 20MEQ TAB 40 MEQ PO (02:05)
--- NOTE | 2023-12-03 03:00 | PC.NURSE ---
Dr. Jones at bedside to perform patient paracentesis procedure. BRITT and bee Johnson at bedside for assistance. Patient tolerated procedure well and reports immediate relief from abdominal distention. He reports that he can take deeper breaths and breathe easier at this time. Drain secured, and adequate flow noted at this time.
[2023-12-03 03:14] LABS: Appearance,Body Fld. Normal; Source, Body Fld. Paracentesis Fluid; Volume,Body Fld. 10 mL
--- NOTE | 2023-12-03 03:25 | PC.NURSE ---
Pt could not pee in urinal whenever he was asked, bladder scanned pt and pt had greater than 800ml of urine in bladder, pt was asked to try to pee in urinal but could not. Pt asked to use bathroom to try to urinate and patient was finally able to pee. Pt urinated in specimen cup, and the specimen was sent to lab. Pt was then assisted back to the bed.
[2023-12-03 03:27] LABS: Microscopic, Urine URINE MICROSCOPIC (MICROSCOPIC)
--- NOTE | 2023-12-03 03:27 | PC.NURSE ---
contacted [facility] in regards to transfer.
[2023-12-03 03:29] LABS: Blood, Urine Negative (Negative); Glucose,Urine (UA) Negative (Negative); Ketones,Urine TRACE (Negative); Leukocyte Esterase,Urine Negative (Negative); Nitrate,Urine POSITIVE (Negative); PH,Urine 6.5 (5.0-8.5); Protein,Urine TRACE (Negative)
[2023-12-03 03:31] LABS: Appearance,Urine Slightly Cloudy (Clear); Bilirubin,Urine 2+ (Negative); Color,Urine Amber (Yellow)
[2023-12-03 03:32] LABS: RBC,Body Fluid < 10 cells/uL (< 10 X 10^3); TNC,Body Fluid 153 cells/uL (< 1000)
[2023-12-03 03:45] LABS: Bacteria,Urine 1+ /lpf; Mucus,Urine 3+ /lpf; Squamous Epithelial Cell,Urine Occasional #/hpf (0-5)
--- NOTE | 2023-12-03 03:45 | PC.NURSE ---
Dr. Jones at bedside. Total of 4200ml removed from paracentesis drain. Dr. Jones removed catheter drain at this time, and secured insertion site with 4x4 and tegaderm. No complaints from patient at this time.
--- NOTE | 2023-12-03 03:48 | PC.NURSE ---
contacted [facility] in regards to the transfer of this patient.
[2023-12-03] MEDS: CEFTRIAXONE 1 GM 1 GM in 0.9 % SODIUM CHLORIDE 50 ML IV (03:50)
--- NOTE | 2023-12-03 04:00 | PC.NURSE ---
Report called to LEONILA Pardo at [facility]
--- NOTE | 2023-12-03 04:05 | PC.NURSE ---
[facility] arrived for patient transport to [facility].
[2023-12-03 04:19] LABS: Mononuclear WBCs,Body Fluid 95 %; Polynuclear WBC,Body Fluid 5 %
[2023-12-03 04:20] VITALS: BP 126/68; PULSE 90; RESP 16; TEMP 36.8; O2SAT 94
== END 2023-12-03 04:22 | disposition short-term general hospital (02) ==
PROVIDERS: Emergency Provider Emergency Medicine; PCP Family Medicine
DX: R14.0 Abdominal distension (gaseous) (principal); R18.8 Other ascites; E87.6 Hypokalemia; K72.00 Acute and subacute hepatic failure without coma; N39.0 Urinary tract infection, site not specified; E87.1 Hypo-osmolality and hyponatremia; F10.11 Alcohol abuse, in remission; F17.210 Nicotine dependence, cigarettes, uncomplicated; J44.9 Chronic obstructive pulmonary disease, unspecified; E03.9 Hypothyroidism, unspecified
CPT/HCPCS: 49083; 71045; 74177; 80053; 81001; 83605; 83690; 85025; 85610; 89051; 93005; 96365; 96366; 99285; J0696; Q9967

== ENCOUNTER 2024-01-03 10:35 | Outpatient (CLI) | payer OTHER, SELFPAY ==
[2024-01-03 18:46] LABS: Basophils # 0.1 K/mm3 (0-0.2); Basophils % 0.9 % (0.1-2.0); Eosinophils # 0.1 K/mm3 (0.0-0.4); Eosinophils % 0.8 % (0.1-12.0); Hematocrit 45.8 % (42.0-52.0); Hemoglobin 14.9 g/dL (14.1-18.0); Lymphocytes # 1.9 K/mm3 (0.7-4.5); Lymphocytes % 13.8 % (10-50); Mean Corpuscular HGB Conc 32.6 g/dL (31.8-35.4); Mean Corpuscular Hemoglobin 33.6 pg (27.0-31.2); Mean Corpuscular Volume 103.2 fl (80-94); Mean Platelet Volume 11.8 fl (7.4-10.4); Monocytes # 0.7 K/mm3 (0.1-1.0); Monocytes % 4.9 % (1.7-9.3); Neutrophils # 11.3 K/mm3 (1.8-7.8); Neutrophils % 79.7 % (37.0-80.0); Platelet Count 128 K/mm3 (142-424); Red Blood Count 4.43 M/mm3 (4.60-6.20); Red Cell Distribution Width 14.2 % (11.5-17.5); White Blood Count 14.1 K/mm3 (4.8-10.8)
[2024-01-03 19:03] LABS: Alanine Aminotransferase 51 U/L (12-78); Albumin/Globulin Ratio 1.1 (1.1-1.8); Alkaline Phosphatase 149 U/L (38-126); Aspartate Amino Transferase 144 U/L (17-59); Bilirubin,Total 3.5 mg/dl (0.2-1.3); Blood Urea Nitrogen 3 mg/dl (9-20); Carbon Dioxide 25 mmol/L (22.0-30.0); Chloride 91 mmol/L (98-107); Estimated Glomerular Filt Rate 225 ml/min (>60); GFR (African American) 272 ML/MIN (>60); Globulin 3.5 g/dL (1.3-3.2); Glucose 154 mg/dl (74-100); Sodium 126 mmol/L (136-145); Total Protein,Serum 7.5 g/dl (6.3-8.2)
[2024-01-03 19:32] LABS: Thyroid Stimulating Hormone 3.46 uIU/mL (0.465-4.68)
== END 2024-01-03 23:59 | disposition home or self-care (01) ==
LOC: LAB.DROPOF 01-04 11:13
PROVIDERS: PCP Family Medicine; Visit Provider Family Medicine
DX: E03.9 Hypothyroidism, unspecified (principal); K70.10 Alcoholic hepatitis without ascites
CPT/HCPCS: 80050; 80053; 84443; 85025

== ENCOUNTER 2024-01-31 11:18 | Outpatient (CLI) | payer OTHER, SELFPAY ==
[2024-01-31 19:27] LABS: Blood Urea Nitrogen 4 mg/dl (9-20); Calcium 8.9 mg/dl (8.4-10.2); Carbon Dioxide 22 mmol/L (22.0-30.0); Chloride 96 mmol/L (98-107); Estimated Glomerular Filt Rate 174 ml/min (>60); GFR (African American) 210 ML/MIN (>60); Glucose 136 mg/dl (74-100); Sodium 129 mmol/L (136-145)
== END 2024-01-31 23:59 | disposition home or self-care (01) ==
LOC: LAB.DROPOF 02-01 09:56
PROVIDERS: PCP Family Medicine; Visit Provider Family Medicine
DX: E87.1 Hypo-osmolality and hyponatremia (principal)
CPT/HCPCS: 80048

== ENCOUNTER 2024-02-29 19:35 | Outpatient (CLI) | payer OTHER, SELFPAY ==
[2024-02-29 20:21] LABS: Chloride 91 mmol/L (98-107); Sodium 131 mmol/L (136-145)
[2024-02-29 20:22] LABS: Potassium 3.1 mmoL/L (3.5-5.1)
[2024-02-29 20:25] LABS: Blood Urea Nitrogen 3 mg/dl (9-20); Calcium 9.1 mg/dl (8.4-10.2); Estimated Glomerular Filt Rate 141 ml/min (>60); GFR (African American) 171 ML/MIN (>60); Glucose 152 mg/dl (74-100)
[2024-02-29 20:46] LABS: Anion Gap 16.1 mEq/L (5-15); Carbon Dioxide 27 mmol/L (22.0-30.0)
== END 2024-02-29 23:59 | disposition home or self-care (01) ==
LOC: LAB.DROPOF 19:36
PROVIDERS: PCP Family Medicine; Visit Provider Family Medicine
DX: E87.6 Hypokalemia (principal)
CPT/HCPCS: 80048

== ENCOUNTER 2024-04-04 18:30 | Outpatient (CLI) | payer OTHER, SELFPAY ==
[2024-04-04 19:28] LABS: Anion Gap 13.3 mEq/L (5-15); Blood Urea Nitrogen 6 mg/dl (9-20); Calcium 9.2 mg/dl (8.4-10.2); Carbon Dioxide 28 mmol/L (22.0-30.0); Chloride 90 mmol/L (98-107); Estimated Glomerular Filt Rate 140 ml/min (>60); GFR (African American) 170 ML/MIN (>60); Glucose 134 mg/dl (74-100); Potassium 3.3 mmoL/L (3.5-5.1); Sodium 128 mmol/L (136-145)
== END 2024-04-04 23:59 | disposition home or self-care (01) ==
LOC: LAB 18:32
PROVIDERS: PCP Family Medicine; Visit Provider Family Medicine
DX: E87.6 Hypokalemia (principal)
CPT/HCPCS: 80048

== ENCOUNTER 2024-05-08 12:10 | Outpatient (CLI) | payer OTHER, SELFPAY ==
[2024-05-08 18:59] LABS: Anion Gap 15.6 mEq/L (5-15); Blood Urea Nitrogen 5 mg/dl (9-20); Calcium 9.3 mg/dl (8.4-10.2); Carbon Dioxide 26 mmol/L (22.0-30.0); Chloride 89 mmol/L (98-107); Estimated Glomerular Filt Rate 140 ml/min (>60); GFR (African American) 170 ML/MIN (>60); Glucose 143 mg/dl (74-100); Potassium 3.6 mmoL/L (3.5-5.1); Sodium 127 mmol/L (136-145)
[2024-05-08 19:29] LABS: Thyroid Stimulating Hormone 3.57 uIU/mL (0.465-4.68)
== END 2024-05-08 23:59 | disposition home or self-care (01) ==
LOC: LAB.DROPOF 05-09 13:51
PROVIDERS: PCP Family Medicine; Visit Provider Family Medicine
DX: E87.1 Hypo-osmolality and hyponatremia (principal); E03.9 Hypothyroidism, unspecified
CPT/HCPCS: 80048; 84443

== ENCOUNTER 2024-05-15 18:42 | Outpatient (CLI) | payer OTHER, SELFPAY ==
[2024-05-15 19:26] LABS: Chloride 91 mmol/L (98-107); Potassium 3.8 mmoL/L (3.5-5.1); Sodium 126 mmol/L (136-145)
[2024-05-15 19:29] LABS: Anion Gap 13.8 mEq/L (5-15); Blood Urea Nitrogen 7 mg/dl (9-20); Calcium 9.4 mg/dl (8.4-10.2); Carbon Dioxide 25 mmol/L (22.0-30.0); Estimated Glomerular Filt Rate 140 ml/min (>60); GFR (African American) 170 ML/MIN (>60); Glucose 145 mg/dl (74-100)
== END 2024-05-15 23:59 | disposition home or self-care (01) ==
LOC: LAB.DROPOF 18:43
PROVIDERS: PCP Family Medicine; Visit Provider Family Medicine
DX: E87.1 Hypo-osmolality and hyponatremia (principal)
CPT/HCPCS: 80048

== ENCOUNTER 2024-06-21 22:10 | Inpatient (IN) | payer OTHER, SELFPAY ==
[2024-06-21 22:10] VITALS: BP 143/70; PULSE 122; RESP 18; TEMP 37.2; O2SAT 99; BMI 25.1
--- NOTE | 2024-06-21 22:14 | ED_ITS ---
Discharge Plan Disposition Patient Disposition: Admitted Prescriptions Prescriptions: No Action metoprolol succinate 25 mg tablet extended release 24 hr 25 mg PO DAILY Qty: 30 2RF tramadol 50 mg tablet 50 mg PO BID PRN (Reason: pain) Qty: 60 2RF methocarbamol 500 mg tablet 500 mg PO HS Qty: 30 1RF potassium chloride 20 mEq tablet extended release 20 meq PO BID Qty: 60 2RF polyethylene glycol 3350 17 gram/dose powder 17 g PO DAILY furosemide 40 mg tablet 40 mg PO DAILY Qty: 30 3RF spironolactone 100 mg tablet 100 mg PO DAILY Qty: 30 3RF (DME) True Metrix Glucose Test Strip Strip See Rx Instructions .Route Qty: 50 11RF Rx Instructions: As directed ipratropium-albuterol 0.5 mg-3 mg(2.5 mg base)/3 mL solution for nebulization See Rx Instructions .ROUTE .COMPLEX Qty: 270 3RF Dose Instruction: Inhale the contents of 1 vial via nebulizer 4 times daily as needed for shortness of breath or wheezing. Rx Instructions: Inhale the contents of 1 vial via nebulizer 4 times daily as needed for shortness of breath or wheezing. albuterol sulfate [Ventolin HFA] 90 mcg/actuation HFA aerosol inhaler See Rx Instructions .ROUTE .COMPLEX Qty: 18 1RF Dose Instruction: Inhale 2 Puffs into the lungs every 4 hours as needed for Wheezing. Rx Instructions: Inhale 2 Puffs into the lungs every 4 hours as needed for Wheezing. Anoro Ellipta 62.5-25 mcg/actuation blister with device 1 inh inhalation DAILY Qty: 60 5RF trazodone 150 mg tablet See Rx Instructions .ROUTE .COMPLEX Qty: 90 1RF Dose Instruction: Take 1 tablet by mouth nightly. Rx Instructions: Take 1 tablet by mouth nightly. levothyroxine 25 mcg capsule 25 mcg PO DAILY Qty: 30 4RF hydroxyzine pamoate 25 mg capsule See Rx Instructions .ROUTE .COMPLEX Qty: 60 2RF Dose Instruction: Take 1 to 2 Capsules by mouth at bedtime nightly as needed for sleep. Rx Instructions: Take 1 to 2 Capsules by mouth at bedtime nightly as needed for sleep. Clinical Impressions Clinical Impression: Severe sepsis, Metabolic acidosis, Alcohol withdrawal, Alcohol abuse, Hyponatremia, Hyperbilirubinemia, Hypokalemia Print Language Print Language: Hebrew Discharge ED Provider: Lanre Cummins General Adult HPI <Lanre Cummins MD - Last Filed: 06/21/24 22:54> General Chief complaint: Nausea/Vomiting/Diarrhea Stated complaint: dizziness and N/V x 3 days Time Seen by Provider: 06/21/24 22:14 History of Present Illness HPI narrative: Please note that above description of symptoms, in this electronic medical record under categorization of recalled from ER triage doctor by RN are reflective of an initial nursing assessment, however, is not reflective of my full history and physical exam that was personally taken and clarified. Consequentially, this preceding description of symptoms, which may include the patient's categorized chief complaint in the EMR, do not reflect my personal clinical impression, and the ultimate description of history of present illness and patient stated complaints should be deferred to this section of the note. Unless stated otherwise or congruent with this section of the note, additional signs, symptoms, or incongruence should be interpreted as inaccurate with my clinical impression. Related Data Home Medications ?Medication ?Instructions ?Recorded ?Confirmed polyethylene glycol 3350 17 17 g PO DAILY 12/21/23 06/21/24 gram/dose oral powder Previous Rx's ?Medication ?Instructions ?Recorded blood sugar diagnostic (True #50 ea 04/13/23 Metrix Glucose Test Strip) ipratropium 0.5 mg-albuterol 3 mg See Rx Instructions .Route 07/08/23 (2.5 mg base)/3 mL nebulization .COMPLEX #270 mL soln Ventolin HFA 90 mcg/actuation See Rx Instructions .Route 12/15/23 aerosol inhaler (albuterol sulfate) .COMPLEX #18 grams furosemide 40 mg tablet 40 mg PO DAILY #30 tabs 01/19/24 spironolactone 100 mg tablet 100 mg PO DAILY #30 tabs 01/19/24 umeclidinium 62.5 mcg-vilanterol 1 inh inhalation DAILY #60 ea 02/07/24 25 mcg/actuation powdr for inhalation (Anoro Ellipta) trazodone 150 mg tablet See Rx Instructions .Route 02/15/24 .COMPLEX #90 tabs levothyroxine 25 mcg capsule 25 mcg PO DAILY #30 caps 02/29/24 hydroxyzine pamoate 25 mg capsule See Rx Instructions .Route 04/06/24 .COMPLEX #60 caps methocarbamol 500 mg tablet 500 mg PO HS #30 tabs 05/08/24 metoprolol succinate 25 mg 25 mg PO DAILY #30 tabs 05/08/24 tablet,extended release 24 hr potassium chloride 20 mEq 20 meq PO BID #60 tabs 05/08/24 tablet,extended release tramadol 50 mg tablet 50 mg PO BID PRN pain #60 tabs 05/08/24 Allergies Allergy/AdvReac Type Severity Reaction Status Date / Time amoxicillin AdvReac Hives Verified 05/15/24 08:20 Penicillins AdvReac Hives Verified 05/15/24 08:20 [facility] <Lanre Cummins MD - Last Filed: 06/21/24 22:54> [facility] Disclaimer: The information contained in this section may have been updated after the patient was seen, as this information can be updated by other users. Medical History Colon polyps Hyponatremia LEANNA on CPAP Degenerative disc disease Encounter for screening for malignant neoplasm of lung Smoking greater than 30 pack years Dyspnea on exertion Sleep apnea COPD (chronic obstructive pulmonary disease) Back pain Diarrhea Hypothyroidism Ganglion cyst Alcohol abuse Steatohepatitis, alcoholic Sleep disturbance Inconclusive HSAT on 07/21/2022. Total recording time 4 hours, AHI 1, RDI 2, loud snoring and increased sleep related arousals were recorded during 38% of total sleep time. Patient was unable to sleep well throughout the night and results are not consistent with reorted sleep pattern. Snoring Has daytime drowsiness Neck pain Scoliosis (and kyphoscoliosis), idiopathic Degenerative disc disease, lumbar Tobacco abuse Advised to consider smoking cessation. COPD (chronic obstructive pulmonary disease) with acute bronchitis Hepatomegaly Type 2 diabetes mellitus without complications Elevated BP without diagnosis of hypertension Will request recent records, labs, consult notes. Abdominal wall pain Discussed with patient DDx: ventral abdominal hernia vs diastasis recti. Will request recent imaging. Diabetes Surgical History History of elbow surgery History of hernia surgery Family History Other Cancer Social History Smoking Status: Current every day smoker alcohol intake: current alcohol intake frequency: 3 or more drinks per day substance use type: denies use current occupational status: unemployed Travel in the last 8 weeks: None household members: significant other housing: house marital status: Have you lived/traveled outside [place] in past 30 days?: No Contact w/someone who lives/traveled outside US past 30 days?: No Exposure to someone with infectious disease in past 14 days?: No Do you have a fever (greater than 100.4 F or 38 C)?: No Have you tested positive for COVID-19: No Exposed to someone with COVID-19 in past 14 days?: No Do you have a sore throat?: No Do you have a cough?: No Do you have any weakness?: Yes Do you have any diarrhea?: No Are you experiencing any unusual bleeding?: No Do you have any muscle aches/pain?: No Do you have any abdominal pain?: No Are you experiencing loss of taste or smell?: No Other Medical History Have you received the Pneumonia Vaccine: Yes <Lanre Cummins MD - Last Filed: 06/21/24 22:54> ROS Obtained: Yes All systems reviewed & no additional complaints except as documented Physical Exam <Lanre Cummins MD - Last Filed: 06/21/24 22:54> General General appearance: alert and in no apparent distress Head Head exam: atraumatic and normocephalic Eye Eye exam: Present normal appearance, PERRL and EOMI Neck Neck exam: Present normal inspection, full ROM and trachea midline Respiratory Respiratory exam: Present normal lung sounds bilaterally; Absent respiratory distress, wheezes, stridor, accessory muscle use or prolonged expiratory phase Cardiovascular Cardiovascular exam: Present normal rhythm, tachycardia and other (Pulses equal symmetric in upper and lower extremities) Abdominal Exam Abdominal exam: Present soft and distention; Absent tenderness, guarding, rebound or pulsatile mass Extremities Exam Extremities exam: Absent edema Neurological Exam Neurological exam: Present alert, oriented X3 and CN II-XII intact; Absent motor sensory deficit Skin Skin exam: Present warm and dry; Absent diaphoresis or erythema Medical Decision Making <Lanre Cummins MD - Last Filed: 06/21/24 22:54> Medical Records Medical records reviewed: Yes I reviewed the patient's medical records. Screening: Per USPSTF and CDC recommendations, given the prevalence of disease in our region, it is our hospital?s policy to screen for HIV and viral Hepatitis for all patients aged 18 and over and those with ongoing risk factors. Danny Inquiry Pt receiving controlled substance: No Danny was queried for this patient: No Vital Signs: 06/21/24 22:10 06/21/24 22:30 06/21/24 23:03 Temperature 98.9 F Temperature Source Oral Pulse Rate 117 H 122 H Pulse Rate [Right Radial] 122 H Respiratory Rate 18 10 L 14 Blood Pressure 138/71 Blood Pressure [Right Arm] 143/70 H Blood Pressure Mean [Right Arm] 94 Blood Pressure Source [Right Arm] Automatic Cuff Blood Pressure Position [Right Arm] Supine 02 Sat by Pulse Oximetry 99 97 99 Oxygen Delivery Method Room Air 06/21/24 23:15 Temperature Temperature Source Pulse Rate 127 H Pulse Rate [Right Radial] Respiratory Rate 23 Blood Pressure Blood Pressure [Right Arm] Blood Pressure Mean [Right Arm] Blood Pressure Source [Right Arm] Blood Pressure Position [Right Arm] 02 Sat by Pulse Oximetry 96 Oxygen Delivery Method Lab Data Lab Results 06/21/24 22:16: WBC 9.0, RBC 4.05 L, Hgb 13.2 L, Hct 37.4 L, MCV 92.3, MCH 32.6 H, MCHC 35.3, RDW 15.1, Plt Count 88 L, MPV 10.5 H, Neut % (Auto) 73.0, Lymph % (Auto) 14.8, Kern % (Auto) 10.6 H, Eos % (Auto) 0.7, Baso % (Auto) 0.6, Neut # (Auto) 6.6, Lymph # (Auto) 1.3, Kern # (Auto) 1.0, Eos # (Auto) 0.1, Baso # (Auto) 0.1, PT 15.6 H, INR 1.44 H, APTT 32.7 H, Sodium 129 L, Potassium 2.3 L*, Chloride 89 L, Carbon Dioxide 16 L, Anion Gap 26.3 H, BUN 4 L, Creatinine 0.60 L , Estimated Creat Clear 158, Estimated GFR 140, Est GFR ( Amer) 170, G lucose 126 H, Calcium 8.2 L, Magnesium 1.4 L, Total Bilirubin 5.2 H, AST 100 H, ALT 49, Alkaline Phosphatase 184 H, Troponin I < 0.01, NT-Pro-B Natriuret Pep 72.8, Total Protein 6.4, Albumin 4.3, Globulin 2.1, Albumin/Globulin Ratio 2.0 H , Lipase 170, Salicylates < 1.0 L, Acetaminophen < 10 L, Plasma/Serum Alcohol 58 H 06/21/24 22:18: VBG pH 7.48 H, VBG pCO2 23.0 L, VBG pO2 56.5 H, VBG HCO3 16.6 L, VBG Total CO2 17.3 L, VBG O2 Saturation 89.6 H, VBG Base Excess -7.0 L, VBG Lactic Acid 9.7 H 06/21/24 22:30: Lactate 11.3 H, Ammonia < 9 L 06/21/24 22:16 06/21/24 22:16 Orders (Tests/Meds): ED MEDICATIONS Generic Name Dose Route Start Last Admin Trade Name Freq PRN Reason Stop Dose Admin Multivitamins 10 ml/ Thiamine 1,015 mls @ 500 mls/hr 06/21/24 22:15 06/21/24 22:42 HCl 100 mg/ Magnesium Sulfate IV 06/22/24 00:16 500 mls/hr 2 gm/ Lactated Ringer's .Q2H2M ONE Administration Vancomycin HCl 2,000 mg/ 250 mls @ 125 mls/hr 06/21/24 22:45 Sodium Chloride IV 06/22/24 00:44 ONCE ONE Lactated Ringer's 2,380 mls @ 1,190 mls/hr 06/21/24 22:52 06/21/24 23:02 Lactated Ringer's 1000 Ml Bag 30 ml/kg infuse over 2 hr (2380 ml) 06/22/24 00:51 1,190 mls/hr IV Administration .Q2H ONE Metronidazole 500 mg in 100 mls @ 100 mls/hr 06/21/24 23:01 06/21/24 23:39 Flagyl 500mg/100ml Ivpb IV 06/22/24 00:00 100 mls/hr ONCE ONE Administration Lorazepam 2 mg 06/21/24 23:32 Lorazepam 2mg/Ml Vial IV 07/21/24 23:44 Q1H PRN CIWA Score 8-15 Miscellaneous 1 each 06/21/24 22:45 06/21/24 23:15 Vancomycin Consult Request NOTAPPLIC 07/21/24 22:44 1 each CONSULT PHARMACY FLAVIO Administration Sodium Chloride 10 ml 06/21/24 23:32 Sodium Chloride 0.9% 10ml Vial IV 07/21/24 23:31 NEEDED PRN to Dilute Lorazepam inj Discontinued Medications Generic Name Dose Route Start Last Admin Trade Name Gunnerq PRN Reason Stop Dose Admin Cefepime HCl 2 gm/ Sodium 100 mls @ 200 mls/hr 06/21/24 22:37 06/21/24 22:54 Chloride IV 06/21/24 23:06 200 mls/hr ONCE ONE Administration Iopamidol 80 ml 06/21/24 23:06 06/21/24 23:07 Iopamidol-370 (76%);100ml Bottle IV 06/21/24 23:07 80 ml ONCE ONE Administration Lorazepam 2 mg 06/21/24 23:18 06/21/24 23:28 Lorazepam 1mg Tablet PO 06/21/24 23:19 2 mg ONCE ONE Administration Ondansetron HCl 4 mg 06/21/24 22:15 06/21/24 22:23 Ondansetron 4mg/2ml Vial IV 06/21/24 22:16 Not Given ONCE ONE Sodium Chloride 50 ml 06/21/24 23:06 06/21/24 23:08 0.9 % Sodium Chloride 50 Ml Vial IV 06/21/24 23:07 50 ml ONCE ONE Administration Sodium Chloride 10 ml 06/21/24 23:06 06/21/24 23:07 Sodium Chloride 0.9% 10ml Syr (Rad Only) IV 06/21/24 23:07 10 ml ONCE ONE Administration ORDERS Category Date Time Status CT angio abdomen pelvis Stat Cat Scan 06/21/24 22:[address] head/brain wo con Stat Cat Scan 06/21/24 22:26 Completed POCUS Point of Care (ER Only) Stat Exams 06/21/24 23:21 Ordered Acetaminophen Stat Lab 06/21/24 22:16 Completed Ammonia Stat Lab 06/21/24 22:30 Completed Complete Blood Count Auto Diff Stat Lab 06/21/24 22:16 Completed Comprehensive Metabolic Panel Stat Lab 06/21/24 22:16 Completed Ethanol [Ethyl Alcohol] Stat Lab 06/21/24 22:16 Completed Lactic Acid Stat Lab 06/21/24 22:30 Completed Lipase Stat Lab 06/21/24 22:16 Completed Magnesium Stat Lab 06/21/24 22:16 Completed NT Pro Brain Natriuretic Pep. Stat Lab 06/21/24 22:16 Completed PT INR [Prothrombin Time INR] Stat Lab 06/21/24 22:16 Completed PTT [Activated Partial Thrombo Time] Stat Lab 06/21/24 22:16 Completed Salicylate Stat Lab 06/21/24 22:16 Completed Troponin I Q3H Lab 06/22/24 01:30 Ordered Troponin I Q3H Lab 06/22/24 04:30 Ordered Troponin I Stat Lab 06/21/24 22:16 Completed Blood Culture Stat Micro 06/21/24 23:09 Received Venous Blood Gas Stat RT 06/21/24 22:18 Completed Medical Decision Narrative: 54-year-old male history of hypertension, hyperlipidemia, COPD still currently smoking, type 2 diabetes, chronic alcohol abuse drinking about 2 L of hard liquor a week, allegedly, cirrhosis needing 1 previous paracentesis in the remote past presenting with vomiting and diarrhea. Patient states he has been having vomiting and diarrhea for the past 2 or 3 days. States that he has been largely unable to tolerate any p.o. intake since that time. No abdominal pain, fevers, chills, blood in his vomit or stool. States that since that time, he is felt lightheaded, but no syncopal episodes. States that he is felt weak and he has had a couple falls at homeAnd did strike his nose yesterday, 06/20. No loss of consciousness. History was obtained via conversation with patient, EMS. On arrival, patient hemodynamically stable, alert, oriented x4, appropriate, GCS 15, moving all extremities spontaneously, pupils equal and reactive to light. Full physical exam performed and significant for chronically ill-appearing male who is in no acute distress. Speaking in full sentences. Lungs are clear, cardiac exam with tachycardia, no lower extremity edema. Abdomen is soft, nontender, but pretty distended, I do not appreciate any obvious fluid wave. Differential includes gastritis, gastroenteritis, small bowel obstruction, mesenteric ischemia, aortic pathology, pancreatitis, metabolic abnormality, endocrinologic abnormality, among others. Patient placed on continuous cardiac monitoring and continuous pulse ox with initial blood pressure 143/70, heart rate 122, saturation 99% on room air. Independent interpretation of EKG shows sinus tachycardia 119 bpm with NE interval 136, QRS 110, QTc 431. Normal axis. No acute ischemic change. Patient was given Zofran and rally pack for symptomatic management and correction of underlying abnormalities. Workup independently interpreted and significant for anemia and thrombocytopenia. Patient's VBG concerning for mixed metabolic acidosis and respiratory alkalosis with pH 7.48/CO2 low at 23/bicarb low at 16/lactate 9.7. Sepsis protocol initiated with sepsis bolus as well as empiric vancomycin and cefepime. Prior to imaging and disposition, care handed off to oncoming physician. Robotic Maintenance Technician disclaimer Much of this encounter note is an electronic manager sterile processing spoken language to printed text. Electronic manager sterile processing of the spoken language may permit errors. Although I have reviewed the note, some errors may still exist. <Rell Jones MD - Last Filed: 06/21/24 23:53> Vital Signs: 06/21/24 22:10 06/21/24 22:30 06/21/24 23:03 Temperature 98.9 F Temperature Source Oral Pulse Rate 117 H 122 H Pulse Rate [Right Radial] 122 H Respiratory Rate 18 10 L 14 Blood Pressure 138/71 Blood Pressure [Right Arm] 143/70 H Blood Pressure Mean [Right Arm] 94 Blood Pressure Source [Right Arm] Automatic Cuff Blood Pressure Position [Right Arm] Supine 02 Sat by Pulse Oximetry 99 97 99 Oxygen Delivery Method Room Air 06/21/24 23:15 Temperature Temperature Source Pulse Rate 127 H Pulse Rate [Right Radial] Respiratory Rate 23 Blood Pressure Blood Pressure [Right Arm] Blood Pressure Mean [Right Arm] Blood Pressure Source [Right Arm] Blood Pressure Position [Right Arm] 02 Sat by Pulse Oximetry 96 Oxygen Delivery Method Lab Data Lab Results 06/21/24 22:16: WBC 9.0, RBC 4.05 L, Hgb 13.2 L, Hct 37.4 L, MCV 92.3, MCH 32.6 H, MCHC 35.3, RDW 15.1, Plt Count 88 L, MPV 10.5 H, Neut % (Auto) 73.0, Lymph % (Auto) 14.8, Kern % (Auto) 10.6 H, Eos % (Auto) 0.7, Baso % (Auto) 0.6, Neut # (Auto) 6.6, Lymph # (Auto) 1.3, Kern # (Auto) 1.0, Eos # (Auto) 0.1, Baso # (Auto) 0.1, PT 15.6 H, INR 1.44 H, APTT 32.7 H, Sodium 129 L, Potassium 2.3 L*, Chloride 89 L, Carbon Dioxide 16 L, Anion Gap 26.3 H, BUN 4 L, Creatinine 0.60 L , Estimated Creat Clear 158, Estimated GFR 140, Est GFR ( Amer) 170, G lucose 126 H, Calcium 8.2 L, Magnesium 1.4 L, Total Bilirubin 5.2 H, AST 100 H, ALT 49, Alkaline Phosphatase 184 H, Troponin I < 0.01, NT-Pro-B Natriuret Pep 72.8, Total Protein 6.4, Albumin 4.3, Globulin 2.1, Albumin/Globulin Ratio 2.0 H , Lipase 170, Salicylates < 1.0 L, Acetaminophen < 10 L, Plasma/Serum Alcohol 58 H 06/21/24 22:18: VBG pH 7.48 H, VBG pCO2 23.0 L, VBG pO2 56.5 H, VBG HCO3 16.6 L, VBG Total CO2 17.3 L, VBG O2 Saturation 89.6 H, VBG Base Excess -7.0 L, VBG Lactic Acid 9.7 H 06/21/24 22:30: Lactate 11.3 H, Ammonia < 9 L Orders (Tests/Meds): ED MEDICATIONS Generic Name Dose Route Start Last Admin Trade Name Alex PRN Reason Stop Dose Admin Multivitamins 10 ml/ Thiamine 1,015 mls @ 500 mls/hr 06/21/24 22:15 06/21/24 22:42 HCl 100 mg/ Magnesium Sulfate IV 06/22/24 00:16 500 mls/hr 2 gm/ Lactated Ringer's .Q2H2M ONE Administration Vancomycin HCl 2,000 mg/ 250 mls @ 125 mls/hr 06/21/24 22:45 Sodium Chloride IV 06/22/24 00:44 ONCE ONE Lactated Ringer's 2,380 mls @ 1,190 mls/hr 06/21/24 22:52 06/21/24 23:02 Lactated Ringer's 1000 Ml Bag 30 ml/kg infuse over 2 hr (2380 ml) 06/22/24 00:51 1,190 mls/hr IV Administration .Q2H ONE Metronidazole 500 mg in 100 mls @ 100 mls/hr 06/21/24 23:01 06/21/24 23:39 Flagyl 500mg/100ml Ivpb IV 06/22/24 00:00 100 mls/hr ONCE ONE Administration Lorazepam 2 mg 06/21/24 23:32 Lorazepam 2mg/Ml Vial IV 07/21/24 23:44 Q1H PRN CIWA Score 8-15 Miscellaneous 1 each 06/21/24 22:45 06/21/24 23:15 Vancomycin Consult Request NOTAPPLIC 07/21/24 22:44 1 each CONSULT PHARMACY [facility]LA[facility]IO Administration Sodium Chloride 10 ml 06/21/24 23:32 Sodium Chloride 0.9% 10ml Vial IV 07/21/24 23:31 NEEDED PRN to Dilute Lorazepam inj Discontinued Medications Generic Name Dose Route Start Last Admin Trade Name Freq PRN Reason Stop Dose Admin Cefepime HCl 2 gm/ Sodium 100 mls @ 200 mls/hr 06/21/24 22:37 06/21/24 22:54 Chloride IV 06/21/24 23:06 200 mls/hr ONCE ONE Administration Iopamidol 80 ml 06/21/24 23:06 06/21/24 23:07 Iopamidol-370 (76%);100ml Bottle IV 06/21/24 23:07 80 ml ONCE ONE Administration Lorazepam 2 mg 06/21/24 23:18 06/21/24 23:28 Lorazepam 1mg Tablet PO 06/21/24 23:19 2 mg ONCE ONE Administration Ondansetron HCl 4 mg 06/21/24 22:15 06/21/24 22:23 Ondansetron 4mg/2ml Vial IV 06/21/24 22:16 Not Given ONCE ONE Sodium Chloride 50 ml 06/21/24 23:06 06/21/24 23:08 0.9 % Sodium Chloride 50 Ml Vial IV 06/21/24 23:07 50 ml ONCE ONE Administration Sodium Chloride 10 ml 06/21/24 23:06 06/21/24 23:07 Sodium Chloride 0.9% 10ml Syr (Rad Only) IV 06/21/24 23:07 10 ml ONCE ONE Administration ORDERS Category Date Time Status CT angio abdomen pelvis Stat Cat Scan 06/21/24 22:[address] head/brain wo con Stat Cat Scan 06/21/24 22:26 Completed POCUS Point of Care (ER Only) Stat Exams 06/21/24 23:21 Ordered Acetaminophen Stat Lab 06/21/24 22:16 Completed Ammonia Stat Lab 06/21/24 22:30 Completed Complete Blood Count Auto Diff Stat Lab 06/21/24 22:16 Completed Comprehensive Metabolic Panel Stat Lab 06/21/24 22:16 Completed Ethanol [Ethyl Alcohol] Stat Lab 06/21/24 22:16 Completed Lactic Acid Stat Lab 06/21/24 22:30 Completed Lipase Stat Lab 06/21/24 22:16 Completed Magnesium Stat Lab 06/21/24 22:16 Completed NT Pro Brain Natriuretic Pep. Stat Lab 06/21/24 22:16 Completed PT INR [Prothrombin Time INR] Stat Lab 06/21/24 22:16 Completed PTT [Activated Partial Thrombo Time] Stat Lab 06/21/24 22:16 Completed Salicylate Stat Lab 06/21/24 22:16 Completed Troponin I Q3H Lab 06/22/24 01:30 Ordered Troponin I Q3H Lab 06/22/24 04:30 Ordered Troponin I Stat Lab 06/21/24 22:16 Completed Blood Culture Stat Micro 06/21/24 23:09 Received Venous Blood Gas Stat RT 06/21/24 22:18 Completed Medical Decision Narrative: 54-year-old male history of hypertension, hyperlipidemia, COPD still currently smoking, type 2 diabetes, chronic alcohol abuse drinking about 2 L of hard liquor a week, allegedly, cirrhosis needing 1 previous paracentesis in the remote past presenting with vomiting and diarrhea. Patient states he has been having vomiting and diarrhea for the past 2 or 3 days. States that he has been largely unable to tolerate any p.o. intake since that time. No abdominal pain, fevers, chills, blood in his vomit or stool. States that since that time, he is felt lightheaded, but no syncopal episodes. States that he is felt weak and he has had a couple falls at homeAnd did strike his nose yesterday, 06/20. No loss of consciousness. History was obtained via conversation with patient, EMS. On arrival, patient hemodynamically stable, alert, oriented x4, appropriate, GCS 15, moving all extremities spontaneously, pupils equal and reactive to light. Full physical exam performed and significant for chronically ill-appearing male who is in no acute distress. Speaking in full sentences. Lungs are clear, cardiac exam with tachycardia, no lower extremity edema. Abdomen is soft, nontender, but pretty distended, I do not appreciate any obvious fluid wave. Differential includes gastritis, gastroenteritis, small bowel obstruction, mesenteric ischemia, aortic pathology, pancreatitis, metabolic abnormality, endocrinologic abnormality, among others. Patient placed on continuous cardiac monitoring and continuous pulse ox with initial blood pressure 143/70, heart rate 122, saturation 99% on room air. Independent interpretation of EKG shows sinus tachycardia 119 bpm with NE interval 136, QRS 110, QTc 431. Normal axis. No acute ischemic change. Patient was given Zofran and rally pack for symptomatic management and correction of underlying abnormalities. Workup independently interpreted and significant for anemia and thrombocytopenia. Patient's VBG concerning for mixed metabolic acidosis and respiratory alkalosis with pH 7.48/CO2 low at 23/bicarb low at 16/lactate 9.7. Sepsis protocol initiated with sepsis bolus as well as empiric vancomycin and cefepime. Prior to imaging and disposition, care handed off to oncoming physician. Robotic Maintenance Technician disclaimer Much of this encounter note is an electronic manager sterile processing spoken language to printed text. Electronic manager sterile processing of the spoken language may permit errors. Although I have reviewed the note, some errors may still exist. Jones: Upon my assumption of care patient is stable, resting comfortably, he does state he is anxious and feeling shaky, his last drink that he was able to keep down was approximately 24 hours ago. He is likely going through alcohol withdrawal. CIWA 18. Ativan administered. I personally interpreted CT abdomen pelvis and do not appreciate obvious vascular abnormality, no bowel obstruction, patient has evidence of cirrhosis with some ascites, he also has a significantly enlarged and distended gallbladder but no evidence of stones or pericholecystic fluid. Lab called and reported critical findings with lactic 11 on chemistry. He is already receiving broad-spectrum antibiotics and fluids. I added Flagyl for anaerobic coverage. I reviewed other labs including patient having hyponatremia but decent kidney function, bilirubin elevated. I calculated a MELD-NA which is 23. 14-15% 90 day moratlity risk. Patient does have significant hypokalemia, starting with oral repletion since patient has his IVs occupied with other medications at this time. I performed [id number] bedside ultrasound of the patient's abdomen to evaluate for possible paracentesis to rule out SBP, unfortunately patient does not have an appropriate pocket to aspirate ascites. Paracentesis not performed. CT head and CT abdomen pelvis were read by radiology and do not demonstrate acute or actionable pathology, patient has findings similar to what I appreciated on CT abdomen pelvis. They also do note colitis. I counseled the patient on alcohol cessation, he states he knows he needs to quit and that it is killing him, but he states that his impossible for him to do by himself. I encouraged him to ask while inpatient about resources in the community if he is serious about stopping drinking and staying sober. He understands. He states he is going to ask for resources and wants to get sober. I reviewed his results with him and he is agreeable to admission. I discussed this case with the hospitalist including labs and imaging findings, his significant lactic acidosis, and the hospitalist graciously accepted the patient for admission. Procedures <Rell Jones MD - Last Filed: 06/21/24 23:53> Miscellaneous Procedure Procedure Performed: Limited abdominal ultrasound Indication: Distention, cirrhosis Views: Bilateral lower quadrants Interpretation: Patient has small volume peritoneal free fluid however there are no pockets deep enough to safely perform paracentesis Impression: Small volume ascites, no appropriate pocket for paracentesis Images were saved in the permanent archive. The study was technically adequate. CPT 90807?26 (limited abdominal) This study was performed by me, and I personally interpreted all images/videos. Based on my clinical judgment, these images were adequate and did not necessitate further imaging. Critical Care <Lanre Cummins MD - Last Filed: 06/21/24 22:54> Critical Care Time Critical Care Time: Yes (metabolic, ID, gi) Attestation: On 06/21/24, the high probability of a clinically significant, sudden or life threatening deterioration of the following system(s) required my full and direct attention, intervention and personal management. The time I documented below is in addition to time spent performing reported procedures but includes the following listed in this critical care notation. Total Time Total Critical Care Time: 45
--- NOTE | 2024-06-21 22:15 | CT_ITS ---
PROCEDURE INFORMATION: Exam: CTA Abdomen and Pelvis With Contrast Exam date and time: 06/21/2024 10:57 PM Age: 54 years old Clinical indication: Abdominal pain; Other: Distention; Additional info: Abd pain, vomiting, distention TECHNIQUE: Imaging protocol: Computed tomographic angiography of the abdomen and pelvis with contrast. Exam focused on the arteries. 3D rendering (Not supervised by radiologist): MIP and/or 3D reconstructed images were created by the technologist. Radiation optimization: All CT scans at this facility use at least one of these dose optimization techniques: automated exposure control; mA and/or kV adjustment per patient size (includes targeted exams where dose is matched to clinical indication); or iterative reconstruction. Contrast material: ISOVUE; Contrast volume: 80 ml; Contrast route: INTRAVENOUS (IV); COMPARISON: CT ABDOMEN PELVIS W CON 12/03/2023 1:11 AM FINDINGS: Aorta: No aortic aneurysm. No aortic dissection. Atherosclerotic calcification. Celiac trunk and mesenteric arteries: No occlusion or significant stenosis. Ostial atherosclerotic calcification. Renal arteries: No occlusion or significant stenosis. Ostial atherosclerotic calcification. Right iliac arteries: No occlusion or significant stenosis. Atherosclerotic calcification. Left iliac arteries: No occlusion or significant stenosis. Atherosclerotic calcification. Liver: Heterogeneous liver. Fatty infiltration. Measures 21 cm. No mass. Gallbladder and biliary ducts: Distended gallbladder without radiopaque gallstones. Pancreas: Unremarkable. No mass. No ductal dilation. Spleen: Unremarkable. No splenomegaly. Adrenal glands: Unremarkable. No mass. Kidneys and ureters: Unremarkable. No solid mass. No hydronephrosis. Stomach and bowel: Colorectal wall thickening and pericolonic fat stranding along sigmorectal junction. No significant diverticular disease. Appendix: No evidence of appendicitis. Intraperitoneal space: Similar abdominopelvic ascites collection. Lymph nodes: Unremarkable. No enlarged lymph nodes. Urinary bladder: Unremarkable. No mass. Reproductive: Unremarkable as visualized. Bones/joints: No acute fracture. Soft tissues: Unremarkable. IMPRESSION: 1. Unremarkable CTA. 2. Persistent abdominopelvic ascites. 3. Colonic wall thickening with suspicion of active infectious/inflammatory sigmorectal junction colitis. 4. Enlarged cirrhotic liver. 5. Distended gallbladder without gallstone possibly reflecting cholestasis.
--- NOTE | 2024-06-21 22:21 | ECG_ITS ---
APPROVED REPORT Exam: Resting ECG HR:119 bpm ECG Measurements Heart Rate 119 AXES DE 136 P 42 QRSd 110 QRS 62 QT 360 T -11 QTc 431 Conclusion SINUS TACHYCARDIA LEFT VENTRICULAR HYPERTROPHY AND ST-T CHANGE [VOLTAGE CRITERIA PLUS ST/T ABNORMALITY] ABNORMAL ECG Electronically signed by : GEOFF VILLEDA, 06/24/2024 08:24:46
[2024-06-21 22:26] LABS: VBG HCO3 16.6 mmol/L (23-30); VBG Oxygen Saturation 89.6 % (50-70); VBG PH 7.48 mmol/L (7.31-7.41); VBG PO2 56.5 mmol/L (28-40); VBG Total CO2 17.3 mmol/L (23-27)
--- NOTE | 2024-06-21 22:26 | CT_ITS ---
PROCEDURE INFORMATION: Exam: CT Head Without Contrast Exam date and time: 06/21/2024 10:54 PM Age: 54 years old Clinical indication: Injury or trauma; Fall; Additional info: Falls, intoxicated TECHNIQUE: Imaging protocol: Computed tomography of the head without contrast. Radiation optimization: All CT scans at this facility use at least one of these dose optimization techniques: automated exposure control; mA and/or kV adjustment per patient size (includes targeted exams where dose is matched to clinical indication); or iterative reconstruction. COMPARISON: No relevant prior studies available. FINDINGS: Brain: Normal. No hemorrhage. Unremarkable white matter. No mass effect. Cerebral ventricles: No ventriculomegaly. Paranasal sinuses: Visualized sinuses are unremarkable. No fluid levels. Mastoid air cells: Visualized mastoid air cells are well aerated. Bones: Unremarkable. No acute fracture. Soft tissues: Unremarkable. IMPRESSION: No acute intracranial abnormality.
[2024-06-21 22:29] LABS: Basophils # 0.1 K/mm3 (0-0.2); Basophils % 0.6 % (0.1-2.0); Eosinophils # 0.1 K/mm3 (0.0-0.4); Eosinophils % 0.7 % (0.1-12.0); Hematocrit 37.4 % (42.0-52.0); Hemoglobin 13.2 g/dL (14.1-18.0); Lymphocytes # 1.3 K/mm3 (0.7-4.5); Lymphocytes % 14.8 % (10-50); Mean Corpuscular HGB Conc 35.3 g/dL (31.8-35.4); Mean Corpuscular Hemoglobin 32.6 pg (27.0-31.2); Mean Corpuscular Volume 92.3 fl (80-94); Mean Platelet Volume 10.5 fl (7.4-10.4); Monocytes % 10.6 % (1.7-9.3); Neutrophils # 6.6 K/mm3 (1.8-7.8); Platelet Count 88 K/mm3 (142-424); Red Blood Count 4.05 M/mm3 (4.60-6.20); Red Cell Distribution Width 15.1 % (11.5-17.5)
[2024-06-21 22:30] VITALS: BP 138/71; PULSE 117; RESP 10; O2SAT 97
[2024-06-21 22:30] LABS: Lactate Venous 9.7 mmol/L (0.4-2.0)
[2024-06-21] MEDS: MVI, ADULT NO.1 WITH VIT K 10 ML, THIAMINE HCL 100 MG, MAGNESIUM SULFATE 2 GM in LACTAT... 500 ML IV (22:42)
[2024-06-21 22:51] LABS: Alanine Aminotransferase 49 U/L (12-78); Albumin Level 4.3 g/dl (3.5-5.0); Alkaline Phosphatase 184 U/L (38-126); Anion Gap 26.3 mEq/L (5-15); Aspartate Amino Transferase 100 U/L (17-59); Bilirubin,Total 5.2 mg/dl (0.2-1.3); Blood Urea Nitrogen 4 mg/dl (9-20); Calcium 8.2 mg/dl (8.4-10.2); Carbon Dioxide 16 mmol/L (22.0-30.0); Chloride 89 mmol/L (98-107); Creatinine Clearance Estimated 158 mL/min (50-200); Estimated Glomerular Filt Rate 140 ml/min (>60); GFR (African American) 170 ML/MIN (>60); Globulin 2.1 g/dL (1.3-3.2); Glucose 126 mg/dl (74-100); Lipase 170 U/L (23-300); Magnesium 1.4 mg/dl (1.6-2.3); Sodium 129 mmol/L (136-145); Total Protein,Serum 6.4 g/dl (6.3-8.2)
[2024-06-21 22:54] LABS: Activated Partial Thrombo Time 32.7 seconds (22.8-30.6); INR 1.44 (0.9-1.1); Prothrombin Time 15.6 seconds (10.1-12.5)
[2024-06-21] MEDS: CEFEPIME HCL 2 GM in 0.9 % SODIUM CHLORIDE 100 ML IV (22:54)
[2024-06-21 22:56] LABS: Acetaminophen < 10 ug/ml (10-30); Salicylate < 1.0 mg/dL (2.0-20.0)
[2024-06-21 22:57] LABS: Potassium 2.3 mmoL/L (3.5-5.1)
[2024-06-21 22:58] LABS: Lactic Acid 11.3 mmol/L (0.7-2.1)
[2024-06-21 23:02] LABS: NT Pro Brain Natriuretic Pep. 72.8 pg/mL (0-125)
[2024-06-21] MEDS: LACTATED RINGERS 1190 ML IV (23:02)
[2024-06-21 23:03] VITALS: PULSE 122; RESP 14; O2SAT 99
[2024-06-21 23:05] LABS: Troponin I < 0.01 ng/ml (0.00-0.034)
[2024-06-21] MEDS: SODIUM CHLORIDE 0.9% 10ML SYR (RAD ONLY) 10 ML IV (23:07)
[2024-06-21] MEDS: IOPAMIDOL-370 (76%);100ML BOTTLE 80 ML IV (23:07)
[2024-06-21] MEDS: 0.9 % SODIUM CHLORIDE 50 ML VIAL IV (23:08)
--- NOTE | 2024-06-21 23:12 | PC.NURSE ---
Collected 2nd set of BC and sent to the lab.
[2024-06-21 23:15] VITALS: PULSE 127; RESP 23; O2SAT 96
[2024-06-21] MEDS: VANCOMYCIN CONSULT REQUEST 1 EACH NOTAPPLIC (23:15)
[2024-06-21 23:19] LABS: Ammonia < 9 umol/L (9-30)
--- NOTE | 2024-06-21 23:22 | PC.NURSE ---
3 1 1 4 4 1 0 0 3 1 CIWA score is 18
[2024-06-21] MEDS: LORazepam 1MG TABLET 2 MG PO (23:28)
[2024-06-21 23:30] LABS: Ethyl Alcohol 58 mg/dl (0-10)
[2024-06-21 23:37] VITALS: BP 141/116; O2SAT 97
[2024-06-21] MEDS: METRONIDAZ/SOD CHL 500 MG/100 ML PIGGYBACK 100 MG IV (23:39)
[2024-06-22] VITALS (27 sets, daily range): BP systolic 91–158; BP diastolic 45–79; PULSE 109–138; RESP 12–27; TEMP 36.6–37.1; O2SAT 90–100; BMI 26.3; BMI 26.2
--- NOTE | 2024-06-22 00:12 | PC.NURSE ---
Vanc not given because other antibiotics are being given and are not compatible.
--- NOTE | 2024-06-22 00:17 | PC.NURSE ---
Report given to LEONILA Macedo
--- NOTE | 2024-06-22 00:20 | PC.NURSE ---
Report received from Milagros Dale RN
--- NOTE | 2024-06-22 00:31 | P.HP_ITS ---
<Statement entered by Pedro Li MD - 06/25/24 22:58> Personally evaluated patient and agree with plan of care as outlined by the [employer]. History of Present Illness *Admission Date: 06/22/24 *Reason for visit:: Nausea, vomiting, diarrhea *History of present illness: This is a 71-year-old male who has a past medical history significant for colon polyps, hyponatremia, obstructive sleep apnea CPAP dependent, degenerative disc disease, COPD, hypothyroidism, ganglion cyst, EtOH abuse, history of hepatitis alcoholism, cirrhosis, scoliosis, hepatomegaly, and type 2 diabetes who presents with a chief complaint of inability to tolerate p.o., nausea, nonbilious emesis, and diarrhea. Due to patient's symptoms, he presented to the emergency room for evaluation. While in emergency room, CT scan of the head was negative for any acute intracranial process. CT scan of the abdomen pelvis revealed persistent abdominal pelvic ascites, colonic wall thickening with suspicion of active infectious/inflammatory sigmoid rectal junction colitis, enlarged cirrhotic liver, and distended gallbladder without gallstones possibly reflecting cholestasis. Patient also was tachycardic with some suspicion of alcohol withdrawal. Due to these findings, patient been admitted for further management. During my evaluation of patient, patient states his symptoms started approximately 2 days ago. He has been having greater than 5 episodes of diarrhea daily. Patient also states he has been having diffuse abdominal pain rated 10 out of 10 coupled with some chills. He also endorses some lightheadedness with weakness. He also finds it difficult to tolerate solids and liquids. Patient is an avid drinker and he drinks more than 2 L of hard liquor a week. His last known drink was yesterday evening. It is worth mentioning that patient does have some distention in his abdomen and appears to have some upper extremity tremors. He is currently denying any chest pain, lightheadedness, dizziness, fever, shortness of breath, dyspnea, or headache. Additional pertinent vitals obtained include a red blood cell count of 4.05, hemoglobin 13.2, hematocrit 37.4, platelet count of 88, INR 1.44, sodium 129, potassium of 2.3, chloride of 89, bicarb of 16, BUN 4, creatinine 0.60, blood glucose 126, lactate of 11.3, calcium of 8.2, magnesium 1.4, total bilirubin 5.2, AST of 100, and alkaline phosphate 184. [facility] Disclaimer: The information contained in this section may have been updated after the patient was seen, as this information can be updated by other users. Medical History Colon polyps Hyponatremia LEANNA on CPAP Degenerative disc disease Encounter for screening for malignant neoplasm of lung Smoking greater than 30 pack years Dyspnea on exertion Sleep apnea COPD (chronic obstructive pulmonary disease) Back pain Diarrhea Hypothyroidism Ganglion cyst Alcohol abuse Steatohepatitis, alcoholic Sleep disturbance Inconclusive HSAT on 07/21/2022. Total recording time 4 hours, AHI 1, RDI 2, loud snoring and increased sleep related arousals were recorded during 38% of total sleep time. Patient was unable to sleep well throughout the night and results are not consistent with reorted sleep pattern. Snoring Has daytime drowsiness Neck pain Scoliosis (and kyphoscoliosis), idiopathic Degenerative disc disease, lumbar Tobacco abuse Advised to consider smoking cessation. COPD (chronic obstructive pulmonary disease) with acute bronchitis Hepatomegaly Type 2 diabetes mellitus without complications Elevated BP without diagnosis of hypertension Will request recent records, labs, consult notes. Abdominal wall pain Discussed with patient DDx: ventral abdominal hernia vs diastasis recti. Will request recent imaging. Diabetes Surgical History History of elbow surgery History of hernia surgery Family History Other Cancer Social History Smoking Status: Current every day smoker alcohol intake: current alcohol intake frequency: 3 or more drinks per day substance use type: denies use current occupational status: unemployed Travel in the last 8 weeks: None household members: significant other housing: house marital status: Have you lived/traveled outside [place] in past 30 days?: No Contact w/someone who lives/traveled outside US past 30 days?: No Exposure to someone with infectious disease in past 14 days?: No Do you have a fever (greater than 100.4 F or 38 C)?: No Have you tested positive for COVID-19: No Exposed to someone with COVID-19 in past 14 days?: No Do you have a sore throat?: No Do you have a cough?: No Do you have any weakness?: Yes Do you have any diarrhea?: No Are you experiencing any unusual bleeding?: No Do you have any muscle aches/pain?: No Do you have any abdominal pain?: No Are you experiencing loss of taste or smell?: No Other Medical History Have you received the Pneumonia Vaccine: Yes Review of Systems Review of Systems Review of systems:: pertinent systems reviewed and negative unless documented below Constitutional Constitutional: Reports chills, Reports fatigue and Reports malaise Eyes Eyes: Reports system reviewed and no additional complaints, except as documented ENT Ears, Nose, Mouth, and Throat: Reports system reviewed and no additional complaints, except as documented *Cardiovascular Cardiovascular: Reports system reviewed and no additional complaints, except as documented and Reports dyspnea *Respiratory Respiratory: Reports dyspnea *Gastrointestinal Gastrointestinal: Reports abdominal pain, Reports change in stool character and Reports loose stools *Genitourinary Genitourinary: Reports system reviewed and no additional complaints, except as documented *Musculoskeletal Musculoskeletal: Reports system reviewed and no additional complaints, except as documented Integumentary/Breasts Skin/Breast: Reports system reviewed and no additional complaints, except as documented *Neurologic Neurologic: Reports system reviewed and no additional complaints, except as documented Psychiatric Psychiatric: Reports system reviewed and no additional complaints, except as documented Endocrine Endocrine: Reports system reviewed and no additional complaints, except as documented and Reports fatigue Hematologic/Lymphatic Hematologic/Lymphatic: Reports system reviewed and no additional complaints, except as documented Allergic/Immunologic Allergic/Immunologic: Reports system reviewed and no additional complaints, except as documented Meds Home Medications and Allergies Home Medications ?Medication ?Instructions ?Recorded ?Confirmed ?Type blood sugar diagnostic (True #50 ea 04/13/23 06/21/24 Rx Metrix Glucose Test Strip) ipratropium 0.5 mg-albuterol 3 mg See Rx Instructions .Route 07/08/23 06/21/24 Rx (2.5 mg base)/3 mL nebulization .COMPLEX #270 mL soln Ventolin HFA 90 mcg/actuation See Rx Instructions .Route 12/15/23 06/21/24 Rx aerosol inhaler (albuterol sulfate) .COMPLEX #18 grams polyethylene glycol 3350 17 17 g PO DAILY 12/21/23 06/21/24 History gram/dose oral powder furosemide 40 mg tablet 40 mg PO DAILY #30 tabs 01/19/24 06/21/24 Rx spironolactone 100 mg tablet 100 mg PO DAILY #30 tabs 01/19/24 06/21/24 Rx umeclidinium 62.5 mcg-vilanterol 1 inh inhalation DAILY #60 ea 02/07/24 06/21/24 Rx 25 mcg/actuation powdr for inhalation (Anoro Ellipta) trazodone 150 mg tablet See Rx Instructions .Route 02/15/24 06/21/24 Rx .COMPLEX #90 tabs levothyroxine 25 mcg capsule 25 mcg PO DAILY #30 caps 02/29/24 06/21/24 Rx hydroxyzine pamoate 25 mg capsule See Rx Instructions .Route 04/06/24 06/21/24 Rx .COMPLEX #60 caps methocarbamol 500 mg tablet 500 mg PO HS #30 tabs 05/08/24 06/21/24 Rx metoprolol succinate 25 mg 25 mg PO DAILY #30 tabs 05/08/24 06/21/24 Rx tablet,extended release 24 hr potassium chloride 20 mEq 20 meq PO BID #60 tabs 05/08/24 06/21/24 Rx tablet,extended release tramadol 50 mg tablet 50 mg PO BID PRN pain #60 tabs 05/08/24 06/21/24 Rx New Prescriptions to Start Prescriptions: Allergies Allergy/AdvReac Type Severity Reaction Status Date / Time amoxicillin AdvReac Hives Verified 05/15/24 08:20 Penicillins AdvReac Hives Verified 05/15/24 08:20 Exam Data for Last 24 hours Vital signs and Labs for Last 24 Hours: Temp Pulse Resp BP Pulse Ox O2 Del Method 97.9 F 123 H 18 151/72 H 100 Room Air 06/22/24 00:19 06/22/24 00:19 06/22/24 00:19 06/22/24 00:19 06/22/24 00:00 06/22/24 00:19 Laboratory Results - last 24 hr 06/21/24 22:16: WBC 9.0, RBC 4.05 L, Hgb 13.2 L, Hct 37.4 L, MCV 92.3, MCH 32.6 H, MCHC 35.3, RDW 15.1, Plt Count 88 L, MPV 10.5 H, Neut % (Auto) 73.0, Lymph % (Auto) 14.8, Letcher % (Auto) 10.6 H, Eos % (Auto) 0.7, Baso % (Auto) 0.6, Neut # (Auto) 6.6, Lymph # (Auto) 1.3, Letcher # (Auto) 1.0, Eos # (Auto) 0.1, Baso # (Auto) 0.1, PT 15.6 H, INR 1.44 H, APTT 32.7 H, Sodium 129 L, Potassium 2.3 L*, Chloride 89 L, Carbon Dioxide 16 L, Anion Gap 26.3 H, BUN 4 L, Creatinine 0.60 L , Estimated Creat Clear 158, Estimated GFR 140, Est GFR ( Amer) 170, Glucose 126 H, Calcium 8.2 L, Magnesium 1.4 L, Total Bilirubin 5.2 H, AST 100 H, ALT 49, Alkaline Phosphatase 184 H, Troponin I < 0.01, NT-Pro-B Natriuret Pep 72.8, Total Protein 6.4, Albumin 4.3, Globulin 2.1, Albumin/Globulin Ratio 2.0 H , Lipase 170, Salicylates < 1.0 L, Acetaminophen < 10 L, Plasma/Serum Alcohol 58 H 06/21/24 22:18: VBG pH 7.48 H, VBG pCO2 23.0 L, VBG pO2 56.5 H, VBG HCO3 16.6 L, VBG Total CO2 17.3 L, VBG O2 Saturation 89.6 H, VBG Base Excess -7.0 L, VBG Lactic Acid 9.7 H 06/21/24 22:30: Lactate 11.3 H, Ammonia < 9 L I & O for Last 24 hours: Intake & Output 06/19/24 06/20/24 06/21/24 06/22/24 23:59 23:59 23:59 23:59 Weight 79.379 kg Constitutional Constitutional: mild distress *Routine HEENT Exam Head: Present normocephalic and atraumatic Eye: Present EOMI, PERRL and normal accommodation ENT: Present mucous membranes moist *Routine Respiratory Exam Respiratory: Present able to speak in complete sentences and symmetric chest movement *Routine Cardiovascular Exam Cardiovascular: Present RRR, Normal S1, Normal S2 and tachycardia *Routine Abdominal Exam Abdominal: Present distended and firm Comments: Hyperactive bowel sounds *Routine Rectal Exam Rectal:: deferred *Routine Genitalia Exam Genitalia:: deferred *Routine Extremities Exam Extremities: Present full ROM, pulses intact and normal capillary refill Routine Back/Spine/Pelvis Exam Back/Spine: Present full ROM *Routine Skin Exam Skin: Present intact and warm *Routine Neurological Exam Neurological: Present alert, oriented X3 and CN II-XII intact Routine Psychiatric Exam Psychiatric: Present anxious H&P: Result Impressions 54-year-old male presents with nausea, vomiting, diarrhea, and decreased p.o. intake has signs consistent with alcohol withdrawal and acute infection of colitis seen on imaging Assessment and Plan *Assessment and plan (1) Colitis: Status: Acute Category: Medical Code(s): K52.9 - Noninfective gastroenteritis and colitis, unspecified (2) Hypokalemia: Status: Acute Category: Medical Code(s): E87.6 - Hypokalemia (3) Hyperbilirubinemia: Status: Acute Category: Medical Code(s): E80.6 - Other disorders of bilirubin metabolism (4) Hyponatremia: Status: Acute Category: Medical Code(s): E87.1 - Hypo-osmolality and hyponatremia (5) Alcohol withdrawal: Status: Acute Qualifiers: Complication of substance-induced condition: uncomplicated Qualified Code(s): F10.930 - Alcohol use, unspecified with withdrawal, uncomplicated Category: Medical Code(s): F10.939 - Alcohol use, unspecified with withdrawal, unspecified (6) Metabolic acidosis: Status: Acute Category: Medical Code(s): E87.20 - Acidosis, unspecified (7) Ascites: Status: Acute Qualifiers: Ascites type: due to alcoholic cirrhosis Qualified Code(s): K70.31 - Alcoholic cirrhosis of liver with ascites Category: Medical Code(s): R18.8 - Other ascites (8) Cirrhosis: Status: Acute Qualifiers: Ascites presence: with ascites Hepatic cirrhosis type: alcoholic cirrhosis Qualified Code(s): K70.31 - Alcoholic cirrhosis of liver with ascites Category: Medical Code(s): K74.60 - Unspecified cirrhosis of liver (9) Hypomagnesemia: Status: Acute Category: Medical Code(s): E83.42 - Hypomagnesemia (10) Transaminitis: Status: Acute Category: Medical Code(s): R74.01 - Elevation of levels of liver transaminase levels (11) Thrombocytopenia: Status: Acute Category: Medical Code(s): D69.6 - Thrombocytopenia, unspecified Plan Assessment: Colitis -500 mg of metronidazole IV every 6 hours -500 mg levofloxacin p.o. daily -Obtain stool culture Hypokalemia -Patient's potassium was replaced in the emergency room Hyperbilirubinemia -Fractionate bilirubin Hyponatremia -Obtain urine sodium -This appears to be chronic -Normal saline at 100 mL an hour Alcohol withdrawal -[facility] protocol -Banana bag -May consider giving shots of liquor while patient is here-will discuss with attending Ascites -Unable to find a significant pocket of peritoneal fluid to drain -Will consider GI consult Cirrhosis -MELD sodium score of 33 -Child pub score class B -Will monitor CMP -Patient still drinks so probably not a candidate for any transplant of the liver Hypomagnesia -Magnesium replaced in emergency room -Obtain magnesium in a.m. Transaminitis: AST greater than ALT: Ratio of 2 -Will monitor CMP -Most likely in the setting of liver dysfunction due to cirrhosis Thrombocytopenia -Avoid heparin/Lovenox -Will monitor for bleeding currently there are no signs of bleeding -Most likely in the setting of liver dysfunction due to cirrhosis Plan: Admit patient to the intensive care unit on telemetry CBC/CMP daily Nicotine patch 21 mg daily 4 mg Zofran IV push to 8 hours pain as well 40 mg Protonix p.o. daily Secure fate 1 g every 6 hours Blood cultures x 2 Full code I discussed this case with attending physician Dr. Li and a look forward to more input scratching
[2024-06-22] MEDS: METRONIDAZ/SOD CHL 500 MG/100 ML PIGGYBACK 100 MG IV ×3 (01:57→14:40)
[2024-06-22] MEDS: NICOTINE 21MG/24HR PATCH 21 MG TD (01:57)
[2024-06-22] MEDS: 0.9 % SODIUM CHLORIDE 1000ML 1,000 ML 100 ML IV ×2 (01:58→18:14)
[2024-06-22 02:17] LABS: Reflex Lactic Add Lactic Reflex
[2024-06-22 02:24] LABS: Troponin I 0.02 ng/ml (0.00-0.034)
[2024-06-22] MEDS: ONDANSETRON 4MG/2ML VIAL 4 MG IV ×2 (02:31→08:07)
[2024-06-22 02:35] LABS: Bilirubin,Total 5.6 mg/dl (0.2-1.3)
[2024-06-22] MEDS: POTASSIUM CHLORIDE 20MEQ TAB 60 MEQ PO (02:35)
[2024-06-22] MEDS: IPRATROPIUM/ALBUTEROL 3 ML NEB IH (02:46)
[2024-06-22] MEDS: VANCOMYCIN HCL 2,000 MG in 0.9 % SODIUM CHLORIDE 250 ML 125 MG IV (03:38)
[2024-06-22 03:43] LABS: Lactic Acid Follow Up (RFLX 1) 8.9 mmol/L (0.7-2.1)
--- NOTE | 2024-06-22 04:58 | PC.NURSE ---
Phone call made to provider to inform of patient tachycardia. Patient has finished sepsis bolus and is resting comfortably with HR sustaining 130-140. CIWA 4 due to nausea. Antiemetic administered for issue. New order from provider. SEE MAR. Patient sleeping comfortably at this time. No complaints other than intermittent diarrhea.
[2024-06-22 05:18] LABS: Reflex Lactic (2 hrs) Add Lactic Reflex
[2024-06-22] MEDS: LORazepam 2MG/ML VIAL 1 MG IV (05:18)
[2024-06-22 06:20] LABS: Basophils % 0.4 % (0.1-2.0); Eosinophils % 0.2 % (0.1-12.0); Hematocrit 34.4 % (42.0-52.0); Hemoglobin 12.2 g/dL (14.1-18.0); Lymphocytes # 1.3 K/mm3 (0.7-4.5); Lymphocytes % 11.6 % (10-50); Mean Corpuscular HGB Conc 35.5 g/dL (31.8-35.4); Mean Corpuscular Hemoglobin 32.6 pg (27.0-31.2); Mean Platelet Volume 10.9 fl (7.4-10.4); Monocytes # 1.4 K/mm3 (0.1-1.0); Monocytes % 12.5 % (1.7-9.3); Neutrophils # 8.1 K/mm3 (1.8-7.8); Neutrophils % 74.7 % (37.0-80.0); Platelet Count 78 K/mm3 (142-424); Red Blood Count 3.74 M/mm3 (4.60-6.20); White Blood Count 10.9 K/mm3 (4.8-10.8)
[2024-06-22 06:37] LABS: Alanine Aminotransferase 47 U/L (12-78); Albumin Level 3.5 g/dl (3.5-5.0); Albumin/Globulin Ratio 1.6 (1.1-1.8); Alkaline Phosphatase 156 U/L (38-126); Anion Gap 17.6 mEq/L (5-15); Aspartate Amino Transferase 96 U/L (17-59); Bilirubin,Total 5.6 mg/dl (0.2-1.3); Blood Urea Nitrogen 4 mg/dl (9-20); Calcium 7.9 mg/dl (8.4-10.2); Carbon Dioxide 21 mmol/L (22.0-30.0); Chloride 94 mmol/L (98-107); Creatinine Clearance Estimated 198 mL/min (50-200); Estimated Glomerular Filt Rate 173 ml/min (>60); GFR (African American) 210 ML/MIN (>60); Globulin 2.2 g/dL (1.3-3.2); Glucose 120 mg/dl (74-100); Sodium 130 mmol/L (136-145); Total Protein,Serum 5.7 g/dl (6.3-8.2)
[2024-06-22 06:44] LABS: POC Glucose,Bedside 126 (70-110)
[2024-06-22 06:44] LABS: Lactic Acid Follow up (RFLX 2) 5.9 mmol/L (0.7-2.1)
[2024-06-22 06:47] LABS: Potassium 2.6 mmoL/L (3.5-5.1)
--- NOTE | 2024-06-22 07:57 | US_ITS ---
FINAL REPORT CLINICAL HISTORY: eval distended gallbladder COMPARISON: None FINDINGS: Sonographic images of the right upper quadrant were obtained. The pancreas is partially obscured. There is a hyperechoic liver with a nodular contour compatible with cirrhosis. There is moderate gallbladder wall thickening measuring 6 mm, which is nonspecific in the setting of liver disease. There is no evidence of gallstones. There is a small amount of perihepatic ascites. Limited images of the right kidney are unremarkable. IMPRESSION: Cirrhotic appearance of the liver. Small amount of ascites. Nonspecific gallbladder wall thickening without stone disease. Reviewed, Interpreted and Dictated by Suzanne Gibbs MD Transcribed by Venita Hartman Authenticated and [facility]
[2024-06-22 08:00] LABS: Troponin I 0.03 ng/ml (0.00-0.034)
[2024-06-22] MEDS: SUCRALFATE 1GM/10ML SUSP UDC 1 GM PO ×3 (08:01→20:11)
[2024-06-22] MEDS: FOLIC ACID 1MG TABLET 1 MG PO (08:01)
[2024-06-22] MEDS: MAGNESIUM SULFATE IN WATER 2 GM/50 ML PIGGYBACK IV (08:19)
[2024-06-22] MEDS: THIAMINE 100MG TABLET 100 MG PO (08:20)
[2024-06-22 09:18] LABS: Benzodiazepines Screen,Urine Negative ng/ml (<200)
[2024-06-22 09:19] LABS: Amphetamine/Metha Screen,Urine Negative ng/ml (<1000); Barbiturates Screen,Urine Negative ng/ml (<200)
[2024-06-22 09:20] LABS: Cannabinoid Screen,Urine Positive ng/ml (<50); Cocaine Screen,Urine Negative ng/ml (<300)
[2024-06-22 09:21] LABS: Methadone Screen,Urine Negative ng/ml (<300)
[2024-06-22] MEDS: KCl 20mEq/100ml 100 ML 50 MEQ IV ×6 (09:21→22:42)
[2024-06-22 09:22] LABS: Opiate Screen,Urine Negative ng/ml (<300); Phencyclidine Screen,Urine Negative ng/ml (<25)
[2024-06-22] MEDS: MVI, ADULT NO.1 WITH VIT K 10 ML, THIAMINE HCL 100 MG, MAGNESIUM SULFATE 2 GM in LACTAT... 125 ML IV (09:50)
--- NOTE | 2024-06-22 10:02 | PC.NURSE ---
US at bedside at this time.
--- NOTE | 2024-06-22 10:04 | HMH.PHAINT1 ---
Pharmacy Intervention Comments: MEDICATION RECONCILIATION COMPLETED ON PATIENT USING EXTERNAL FILL HISTORY FROM PHARMACY AND AWA REPORT. -SHARYN COPPOLA, VIRGILD
[2024-06-22] MEDS: levoFLOXacin 500MG TAB 500 MG PO (10:40)
[2024-06-22] MEDS: LORazepam 1MG TABLET 1 MG PO (13:53)
[2024-06-22] MEDS: CHLORPROMAZINE 25MG TABLET 25 MG PO (13:57)
[2024-06-22] MEDS: MULTIVITAMIN TABLET 1 EACH PO (16:36)
[2024-06-22 16:38] LABS: Adenovirus F 40/41, stool Not Detected (NotDetected); Astrovirus Not Detected (NotDetected); Campylobacter Not Detected (NotDetected); Cryptosporidium Not Detected (NotDetected); Cyclospora Cayetanesis Not Detected (NotDetected); Entamoeba histolytica Not Detected (NotDetected); Enteroaggregative E coli Not Detected (NotDetected); Enteropathogenic E coli Not Detected (NotDetected); Enterotoxigenic E coli Not Detected (NotDetected); Giardia lamblia Not Detected (NotDetected); Norovirus Not Detected (NotDetected); Plesimonas Shigalloides, PCR Not Detected (NotDetected); Rotavirus A Not Detected (NotDetected); Salmonella, PCR Not Detected (NotDetected); Sapovirus Not Detected (NotDetected); Shiga-like toxin E coli Not Detected (NotDetected); Shigella Enterovasive E coli Not Detected (NotDetected); Vibrio Cholerae Not Detected (NotDetected); Vibrio, PCR Not Detected (NotDetected); Yersinia Entercolitica, PCR Not Detected (NotDetected)
--- NOTE | 2024-06-22 17:04 | PC.NURSE ---
pt HAS BEEN UP AND DOWN TO THE BSC REPEATEDLY. BARRIER CREAM WAS APPLIED TO pt's BUTTOCKS DUE TO IRRITATION. pt HAS SEIZURE PADS IN PLACE DUE TO SEIZURE PROTOCOL. BED ALARM IS ON AND pt IS RIGHT SIDE LYING RESTING AT THIS TIME.
[2024-06-22] MEDS: METOPROLOL SUCCINATE XL 25MG TABLET 25 MG PO (17:29)
[2024-06-22 18:07] LABS: Alanine Aminotransferase 37 U/L (12-78); Albumin/Globulin Ratio 1.5 (1.1-1.8); Alkaline Phosphatase 132 U/L (38-126); Anion Gap 7.5 mEq/L (5-15); Aspartate Amino Transferase 76 U/L (17-59); Bilirubin,Total 5.7 mg/dl (0.2-1.3); Blood Urea Nitrogen 8 mg/dl (9-20); Calcium 7.5 mg/dl (8.4-10.2); Carbon Dioxide 23 mmol/L (22.0-30.0); Chloride 99 mmol/L (98-107); Creatinine Clearance Estimated 165 mL/min (50-200); Estimated Glomerular Filt Rate 140 ml/min (>60); GFR (African American) 170 ML/MIN (>60); Glucose 132 mg/dl (74-100); Sodium 127 mmol/L (136-145)
[2024-06-22 18:20] LABS: Clostridium Difficile A/B, PCR Detected (NotDetected)
[2024-06-22 18:23] LABS: Potassium 2.5 mmoL/L (3.5-5.1)
[2024-06-22] MEDS: VANCOMYCIN HCL 50MG/ML 150ML KIT 125 MG PO (18:38)
--- NOTE | 2024-06-22 18:47 | PC.WOUNDNOTE ---
Outter Right Knee
--- NOTE | 2024-06-22 18:49 | PC.WOUNDNOTE ---
Facial abrasion from fall [employer]
[2024-06-22 19:23] LABS: Magnesium 2.4 mg/dl (1.6-2.3)
[2024-06-22] MEDS: PANTOPRAZOLE 40MG TABLET 40 MG PO (20:12)
[2024-06-22] MEDS: TRAZODONE 50MG TABLET 150 MG PO (20:12)
--- NOTE | 2024-06-22 21:50 | PC.NURSE ---
pt complaining of burning from iv potassium. infusion rate is 50ml/hr lowered to 30 ml/hr
[2024-06-23] VITALS (18 sets, daily range): BP systolic 100–168; BP diastolic 53–78; PULSE 100–129; RESP 18–27; TEMP 36.6–37.2; O2SAT 88–96; BMI 27.4
[2024-06-23] MEDS: VANCOMYCIN HCL 50MG/ML 150ML KIT 125 MG PO ×5 (00:37→20:49)
[2024-06-23] MEDS: SUCRALFATE 1GM/10ML SUSP UDC 1 GM PO ×4 (02:20→20:49)
[2024-06-23] MEDS: 0.9 % SODIUM CHLORIDE 1000ML 1,000 ML 125 ML IV ×2 (02:49→16:58)
--- NOTE | 2024-06-23 05:05 | PC.NURSE ---
pts oxygen saturation dropped while pt was sleeping to 88 2 lpm nc was applied pt oxygen now 90
[2024-06-23 06:11] LABS: POC Glucose,Bedside 112 (70-110)
[2024-06-23 06:11] LABS: POC Glucose,Bedside 135 (70-110)
[2024-06-23 06:11] LABS: POC Glucose,Bedside 145 (70-110)
[2024-06-23 06:11] LABS: POC Glucose,Bedside 143 (70-110)
--- NOTE | 2024-06-23 06:19 | PC.NURSE ---
pt alert and oriented. ciwa scores have been 0 other then at 1999 it was 1. pt has multiple liquid bowel movements with incontience, abdomen is round and firm. bowel sounds active, lung sounds fine crackles through out. pt oxygen dropped while sleeping to 88 2 liters of oxygen was applied via nc once awake pt oxygen staying above 90. seizure pads in place. bed alarm on for pt safety.
[2024-06-23 08:22] LABS: Basophils % 0.3 % (0.1-2.0); Eosinophils % 0.6 % (0.1-12.0); Hematocrit 30.6 % (42.0-52.0); Hemoglobin 10.6 g/dL (14.1-18.0); Lymphocytes # 1.7 K/mm3 (0.7-4.5); Lymphocytes % 25.7 % (10-50); Mean Corpuscular HGB Conc 34.6 g/dL (31.8-35.4); Mean Corpuscular Hemoglobin 31.8 pg (27.0-31.2); Mean Corpuscular Volume 91.9 fl (80-94); Mean Platelet Volume 10.8 fl (7.4-10.4); Monocytes # 0.5 K/mm3 (0.1-1.0); Neutrophils # 4.2 K/mm3 (1.8-7.8); Neutrophils % 64.9 % (37.0-80.0); Platelet Count 52 K/mm3 (142-424); Red Blood Count 3.33 M/mm3 (4.60-6.20); Red Cell Distribution Width 14.5 % (11.5-17.5); White Blood Count 6.5 K/mm3 (4.8-10.8)
[2024-06-23] MEDS: METOPROLOL SUCCINATE XL 25MG TABLET 25 MG PO (08:39)
[2024-06-23] MEDS: THIAMINE 100MG TABLET 100 MG PO (08:39)
[2024-06-23] MEDS: FOLIC ACID 1MG TABLET 1 MG PO (08:39)
[2024-06-23 08:50] LABS: Alanine Aminotransferase 35 U/L (12-78); Albumin/Globulin Ratio 1.5 (1.1-1.8); Alkaline Phosphatase 128 U/L (38-126); Anion Gap 10.6 mEq/L (5-15); Aspartate Amino Transferase 75 U/L (17-59); Bilirubin,Total 4.8 mg/dl (0.2-1.3); Blood Urea Nitrogen 7 mg/dl (9-20); Calcium 7.4 mg/dl (8.4-10.2); Carbon Dioxide 22 mmol/L (22.0-30.0); Chloride 96 mmol/L (98-107); Creatinine Clearance Estimated 173 mL/min (50-200); Estimated Glomerular Filt Rate 140 ml/min (>60); GFR (African American) 170 ML/MIN (>60); Glucose 100 mg/dl (74-100); Magnesium 1.8 mg/dl (1.6-2.3); Sodium 126 mmol/L (136-145)
[2024-06-23 08:51] LABS: Potassium 2.6 mmoL/L (3.5-5.1)
[2024-06-23] MEDS: NICOTINE 21MG/24HR PATCH 21 MG TD (08:52)
[2024-06-23] MEDS: MVI, ADULT NO.1 WITH VIT K 10 ML, THIAMINE HCL 100 MG, MAGNESIUM SULFATE 2 GM in LACTAT... 125 ML IV (08:53)
[2024-06-23] MEDS: POTASSIUM CHLORIDE 20MEQ TAB 40 MEQ PO ×3 (09:28→16:58)
[2024-06-23] MEDS: MAGNESIUM SULFATE IN WATER 2 GM/50 ML PIGGYBACK IV (09:43)
[2024-06-23] MEDS: 0.9 % SODIUM CHLORIDE 1000ML 1,000 ML 999 ML IV (09:44)
[2024-06-23 11:16] LABS: POC Glucose,Bedside 137 (70-110)
--- NOTE | 2024-06-23 14:38 | PC.NURSE ---
report called to [id number]
--- NOTE | 2024-06-23 15:02 | PC.NURSE ---
1502 pt left unit with SRNA to transfer to [facility].
--- NOTE | 2024-06-23 15:03 | PC.NURSE ---
arrived by w/c from icu
--- NOTE | 2024-06-23 18:26 | EXP.PN ---
Subjective *Date: 06/23/24 *Time: 18:26 Interval history: Continues to have poor appetite, diarrhea, hypokalemia. Exam Data for Last 24 hours Vital signs and Labs for Last 24 Hours: Temp Pulse Resp BP Pulse Ox O2 Del Method O2 Flow Rate 98.4 F 114 H 24 144/71 H 96 Room Air 2 06/23/24 12:00 06/23/24 12:00 06/23/24 12:00 06/23/24 12:00 06/23/24 12:00 06/23/24 18:23 06/23/24 05:04 Laboratory Results - last 24 hr 06/22/24 08:57: Urine Sodium 58.0 06/22/24 11:23: POC Glucose 143 H 06/22/24 16:16: POC Glucose 135 H 06/22/24 18:40: Magnesium 2.4 H D 06/22/24 21:11: POC Glucose 145 H 06/23/24 06:03: POC Glucose 112 H 06/23/24 06:38: WBC 6.5 D, RBC 3.33 L, Hgb 10.6 L, Hct 30.6 L, MCV 91.9, MCH 31.8 H, MCHC 34.6, RDW 14.5, Plt Count 52 L D, MPV 10.8 H, Neut % (Auto) 64.9, Lymph % (Auto) 25.7, [place] % (Auto) 8.0, Eos % (Auto) 0.6, Baso % (Auto) 0.3, Neut # (Auto) 4.2, Lymph # (Auto) 1.7, [place] # (Auto) 0.5, Eos # (Auto) 0.0, Baso # (Auto) 0.0, Sodium 126 L, Potassium 2.6 L*, Chloride 96 L, Carbon Dioxide 22, Anion Gap 10.6, BUN 7 L, Creatinine 0.60 L, Estimated Creat Clear 173, Estimated GFR 140, Est GFR ( Amer) 170, Glucose 100 D, Calcium 7.4 L, Magnesium 1.8 D, Total Bilirubin 4.8 H, AST 75 H, ALT 35, Alkaline Phosphatase 128 H, Total Protein 5.0 L, Albumin 3.0 L, Globulin 2.0, Albumin/Globulin Ratio 1.5 06/23/24 11:09: POC Glucose 137 H I & O for Last 24 hours: Intake & Output 06/20/24 06/21/24 06/22/24 06/23/24 23:59 23:59 23:59 23:59 Intake Total 6879 / 6879 3488 / 3488 Output Total 675 / 675 450 / 450 Balance 6204 / 6204 3038 / 3038 Weight 79.379 kg 83 kg 87.09 kg Microbiology Reports for the Last 24 Hours: Microbiology 06/21/24 23:09 Blood Blood Culture - Preliminary NO GROWTH AFTER 24 HOURS 06/21/24 22:30 Blood Blood Culture - Preliminary NO GROWTH AFTER 24 HOURS Assessment and Plan *Assessment and plan (1) C. difficile diarrhea: Status: Acute Category: Medical Code(s): A04.72 - Enterocolitis due to Clostridium difficile, not specified as recurrent Plan Charlie Davis is a 54-year-old male who presented with nausea/vomiting/diarrhea and was admitted for colitis found to be caused by C. difficile. #C. difficile diarrhea #Poor appetite #Hypokalemia ? Patient continues to have poor appetite, diarrhea, hypokalemia. ? Potassium 2.6 this morning. Continue repletion per electrolyte replacement protocol. Magnesium 1.8. ? Continue oral vancomycin 125 mg every 6 hours for total of 10 days. ? Continue NS at 125 mL/h. ? Continue to encourage oral intake. ? Continuous cardiac telemetry. ? Follow-up morning CMP, magnesium. #Alcohol use disorder ? No withdrawal symptoms during admission. ? Discontinue CIWA. Ativan as needed. ? Patient interested in cessation. Peer support consulted, pending recommendations. ? Started gabapentin 300 mg daily. Will avoid naltrexone for now as patient takes tramadol. #Hypertension ? Hold home spironolactone, Lasix given stable pressures and ongoing diarrhea. #Cirrhosis ? CT and RUQ suggestive of cirrhosis. Patient was not aware previously, likely related to alcohol. ? Platelets 52, elevated PT/INR. No signs of decompensation at this time. ? Hold home Lasix, spironolactone. Full code DVT prophylaxis: SCDs
[2024-06-23] MEDS: PANTOPRAZOLE 40MG TABLET 40 MG PO (20:49)
[2024-06-23] MEDS: METHOCARBAMOL 500MG TABLET 500 MG PO (20:49)
[2024-06-23] MEDS: TRAZODONE 50MG TABLET 150 MG PO (20:49)
[2024-06-23] MEDS: GABAPENTIN 300MG CAPSULE 300 MG PO (20:49)
[2024-06-23] MEDS: TRAMADOL 50MG TABLET 50 MG PO (20:50)
[2024-06-23 21:43] LABS: POC Glucose,Bedside 131 (70-110)
[2024-06-24] VITALS: BP 93/44; PULSE 104; RESP 16; TEMP 36.7; O2SAT 94
[2024-06-24] MEDS: SUCRALFATE 1GM/10ML SUSP UDC 1 GM PO ×3 (02:40→17:08)
[2024-06-24 03:57] VITALS: BP 105/43; PULSE 106; RESP 16; TEMP 36.8; O2SAT 93; BMI 28.3
[2024-06-24 04:00] VITALS: BP 105/43; PULSE 93; RESP 16; TEMP 36.8; O2SAT 93
--- NOTE | 2024-06-24 06:25 | PC.NURSE ---
Pt A&OX4 and has tolerated room air. Lung sounds clear and bowel sounds active. He has ambulated to the bathroom multiple times this shift with standby assist. He did complain of back pain once this shift and was medicated per MAR. No other complaints at this time, call light within reach.
[2024-06-24 06:28] LABS: POC Glucose,Bedside 106 (70-110)
[2024-06-24 08:00] VITALS: BP 136/72; PULSE 112; RESP 20; TEMP 36.8; O2SAT 96
[2024-06-24 08:13] LABS: HBsAg Screen Negative (Negative); HCV Ab Non Reactive (Non Reactive); Hep A Ab, IGM Negative (Negative); Hep B Core Ab, IgM Negative (Negative)
[2024-06-24 09:28] LABS: Basophils % 0.4 % (0.1-2.0); Eosinophils # 0.1 K/mm3 (0.0-0.4); Eosinophils % 0.7 % (0.1-12.0); Hematocrit 35.3 % (42.0-52.0); Hemoglobin 12.2 g/dL (14.1-18.0); Lymphocytes # 1.4 K/mm3 (0.7-4.5); Lymphocytes % 20.8 % (10-50); Mean Corpuscular HGB Conc 34.6 g/dL (31.8-35.4); Mean Corpuscular Hemoglobin 32.1 pg (27.0-31.2); Mean Corpuscular Volume 92.9 fl (80-94); Mean Platelet Volume 11.9 fl (7.4-10.4); Monocytes # 0.4 K/mm3 (0.1-1.0); Monocytes % 5.4 % (1.7-9.3); Neutrophils # 4.9 K/mm3 (1.8-7.8); Neutrophils % 72.4 % (37.0-80.0); Red Cell Distribution Width 14.6 % (11.5-17.5); White Blood Count 6.8 K/mm3 (4.8-10.8)
[2024-06-24 09:32] LABS: Platelet Count 50 K/mm3 (142-424)
[2024-06-24 09:33] LABS: Albumin Level 3.8 g/dl (3.5-5.0); Albumin/Globulin Ratio 1.7 (1.1-1.8); Alkaline Phosphatase 139 U/L (38-126); Anion Gap 10.9 mEq/L (5-15); Bilirubin,Total 4.5 mg/dl (0.2-1.3); Blood Urea Nitrogen 4 mg/dl (9-20); Calcium 7.9 mg/dl (8.4-10.2); Carbon Dioxide 24 mmol/L (22.0-30.0); Chloride 97 mmol/L (98-107); Creatinine Clearance Estimated 214 mL/min (50-200); Estimated Glomerular Filt Rate 173 ml/min (>60); GFR (African American) 210 ML/MIN (>60); Globulin 2.3 g/dL (1.3-3.2); Glucose 126 mg/dl (74-100); Sodium 129 mmol/L (136-145); Total Protein,Serum 6.1 g/dl (6.3-8.2)
[2024-06-24 09:43] LABS: Potassium 2.9 mmoL/L (3.5-5.1)
[2024-06-24] MEDS: NICOTINE 21MG/24HR PATCH 21 MG TD (09:47)
[2024-06-24] MEDS: FOLIC ACID 1MG TABLET 1 MG PO (09:47)
[2024-06-24] MEDS: METOPROLOL SUCCINATE XL 25MG TABLET 25 MG PO (09:47)
[2024-06-24] MEDS: THIAMINE 100MG TABLET 100 MG PO (09:50)
[2024-06-24] MEDS: VANCOMYCIN HCL 50MG/ML 150ML KIT 125 MG PO ×3 (09:50→17:07)
[2024-06-24] MEDS: TRAMADOL 50MG TABLET 50 MG PO (09:57)
[2024-06-24] MEDS: SPIRONOLACTONE 25MG TABLET 100 MG PO (09:59)
[2024-06-24] MEDS: FUROSEMIDE 100MG/10ML VIAL 80 MG IV (10:00)
[2024-06-24 10:12] LABS: Alanine Aminotransferase 48 U/L (12-78); Aspartate Amino Transferase 114 U/L (17-59)
[2024-06-24 11:16] LABS: Magnesium 1.7 mg/dl (1.6-2.3)
[2024-06-24 12:00] VITALS: BP 147/80; PULSE 111; RESP 20; TEMP 36.9; O2SAT 100
[2024-06-24 13:29] VITALS: BMI 28.3
[2024-06-24 14:58] LABS: Chloride 91 mmol/L (98-107); Sodium 131 mmol/L (136-145)
[2024-06-24 14:59] LABS: Potassium 2.4 mmoL/L (3.5-5.1)
[2024-06-24 15:00] LABS: Blood Urea Nitrogen 4 mg/dl (9-20); Creatinine Clearance Estimated 153 mL/min (50-200); Estimated Glomerular Filt Rate 118 ml/min (>60); GFR (African American) 142 ML/MIN (>60)
[2024-06-24 15:01] LABS: Anion Gap 16.4 mEq/L (5-15); Calcium 7.7 mg/dl (8.4-10.2); Carbon Dioxide 26 mmol/L (22.0-30.0); Glucose 176 mg/dl (74-100); Magnesium 1.4 mg/dl (1.6-2.3)
[2024-06-24] MEDS: POTASSIUM CHLORIDE 20MEQ TAB 80 MEQ PO (15:52)
[2024-06-24] MEDS: KCl 10mEq/100ml 100 ML 100 MEQ IV ×2 (15:56→17:10)
[2024-06-24 16:00] VITALS: BP 120/72; PULSE 98; RESP 16; TEMP 36.9; O2SAT 96
[2024-06-24] MEDS: MAGNESIUM SULFATE IN WATER 2 GM/50 ML PIGGYBACK IV (16:01)
[2024-06-24] MEDS: MULTIVITAMIN TABLET 1 EACH PO (17:10)
--- NOTE | 2024-06-24 17:46 | EXP.DC.SUM ---
General Admission date:: 06/22/24 HPI HPI HPI: This is a 71-year-old male who has a past medical history significant for colon polyps, hyponatremia, obstructive sleep apnea CPAP dependent, degenerative disc disease, COPD, hypothyroidism, ganglion cyst, EtOH abuse, history of hepatitis alcoholism, cirrhosis, scoliosis, hepatomegaly, and type 2 diabetes who presents with a chief complaint of inability to tolerate p.o., nausea, nonbilious emesis, and diarrhea. Due to patient's symptoms, he presented to the emergency room for evaluation. While in emergency room, CT scan of the head was negative for any acute intracranial process. CT scan of the abdomen pelvis revealed persistent abdominal pelvic ascites, colonic wall thickening with suspicion of active infectious/inflammatory sigmoid rectal junction colitis, enlarged cirrhotic liver, and distended gallbladder without gallstones possibly reflecting cholestasis. Patient also was tachycardic with some suspicion of alcohol withdrawal. Due to these findings, patient been admitted for further management. During my evaluation of patient, patient states his symptoms started approximately 2 days ago. He has been having greater than 5 episodes of diarrhea daily. Patient also states he has been having diffuse abdominal pain rated 10 out of 10 coupled with some chills. He also endorses some lightheadedness with weakness. He also finds it difficult to tolerate solids and liquids. Patient is an avid drinker and he drinks more than 2 L of hard liquor a week. His last known drink was yesterday evening. It is worth mentioning that patient does have some distention in his abdomen and appears to have some upper extremity tremors. He is currently denying any chest pain, lightheadedness, dizziness, fever, shortness of breath, dyspnea, or headache. Additional pertinent vitals obtained include a red blood cell count of 4.05, hemoglobin 13.2, hematocrit 37.4, platelet count of 88, INR 1.44, sodium 129, potassium of 2.3, chloride of 89, bicarb of 16, BUN 4, creatinine 0.60, blood glucose 126, lactate of 11.3, calcium of 8.2, magnesium 1.4, total bilirubin 5.2, AST of 100, and alkaline phosphate 184. Hospital Course Hospital Course Hospital Course: Charlie Davis is a 54-year-old male who presented with nausea/vomiting/diarrhea and was admitted for colitis found to be caused by C. difficile. #C. difficile diarrhea #Poor appetite #Hypokalemia - Gradually improved with IV and oral fluids, oral vancomycin, IV and oral potassium repletion. No signs of sepsis. - Kidney function remained stable. - Discharged with oral vancomycin for 8 more days, as well as potassium and magnesium supplements. #Cirrhosis #Hypertension ? CT and RUQ suggestive of cirrhosis. Patient was not aware previously, likely related to alcohol. ? Platelets 52, elevated PT/INR. - Volume overload in setting of fluid repletion. Increased Lasix to 40mg BID, continue spironolactone 100mg daily. #Alcohol use disorder ? No withdrawal symptoms during admission. ? Patient interested in cessation and states he will try it himself first. Total time spent on discharge: 32 minutes on chart review, counseling, documentation, and direct care with patient. Exam Data for Last 24 hours Vital signs and Labs for Last 24 Hours: Temp Pulse Resp BP Pulse Ox O2 Del Method O2 Flow Rate 98.5 F 98 H 16 120/72 96 Room Air 2 06/24/24 16:00 06/24/24 16:00 06/24/24 16:00 06/24/24 16:00 06/24/24 16:00 06/24/24 17:00 06/23/24 05:04 Laboratory Results - last 24 hr 06/23/24 10:11: Hepatitis A IgM Ab Negative, Hep Bs Antigen Negative, Hep B Core IgM Ab Negative, Hepatitis C Antibody Non reactive, HCV RNA PCR Test Info Comment 06/23/24 21:34: POC Glucose 131 H 06/24/24 06:16: POC Glucose 106 06/24/24 08:40: Magnesium 1.7 06/24/24 08:49: WBC 6.8, RBC 3.80 L, Hgb 12.2 L, Hct 35.3 L, MCV 92.9, MCH 32.1 H, MCHC 34.6, RDW 14.6, Plt Count 50 L, MPV 11.9 H, Neut % (Auto) 72.4, Lymph % (Auto) 20.8, [place] % (Auto) 5.4, Eos % (Auto) 0.7, Baso % (Auto) 0.4, Neut # (Auto) 4.9, Lymph # (Auto) 1.4, [place] # (Auto) 0.4, Eos # (Auto) 0.1, Baso # (Auto) 0.0, Sodium 129 L, Potassium 2.9 L*, Chloride 97 L, Carbon Dioxide 24, Anion Gap 10.9, BUN 4 L D, Creatinine 0.50 L, Estimated Creat Clear 214, Estimated GFR 173, Est GFR ( Amer) 210 D, Glucose 126 H, Calcium 7.9 L, Total Bilirubin 4.5 H, AST 114 H D, ALT 48 D, Alkaline Phosphatase 139 H, Total Protein 6.1 L, Albumin 3.8 D, Globulin 2.3, Albumin/Globulin Ratio 1.7 06/24/24 14:40: Sodium 131 L, Potassium 2.4 L*, Chloride 91 L, Carbon Dioxide 26, Anion Gap 16.4 H, BUN 4 L, Creatinine 0.70 D, Estimated Creat Clear 153, Estimated GFR 118, Est GFR ( Amer) 142 D, Glucose 176 H D, Calcium 7.7 L, Magnesium 1.4 L D I & O for Last 24 hours: Intake & Output 06/21/24 06/22/24 06/23/24 06/24/24 23:59 23:59 23:59 23:59 Intake Total 6879 / 6879 3758 / 4458 1140 / 1140 Output Total 675 / 675 450 / 450 0 / 0 Balance 6204 / 6204 3308 / 4008 1140 / 1140 Weight 79.379 kg 83 kg 87.09 kg 89.58 kg Microbiology Reports for the Last 24 Hours: Microbiology 06/22/24 07:48 Anus CRE Surveillance Culture - Final 06/21/24 23:09 Blood Blood Culture - Preliminary NO GROWTH AFTER 48 HOURS 06/21/24 22:30 Blood Blood Culture - Preliminary NO GROWTH AFTER 48 HOURS Constitutional Constitutional: no acute distress *Routine HEENT Exam Head: Present normocephalic Eye: Present EOMI and PERRL ENT: Present mucous membranes moist *Routine Neck Exam Neck: Present supple; Absent lymphadenopathy *Routine Respiratory Exam Respiratory: Present CTA bilaterally *Routine Cardiovascular Exam Cardiovascular: Present RRR *Routine Abdominal Exam Abdominal: Present soft and normoactive bowel sounds; Absent tenderness *Routine Extremities Exam Extremities: Present edema; Absent cyanosis or clubbing *Routine Skin Exam Skin: Present warm; Absent rash *Routine Neurological Exam Neurological: Present alert and oriented X3 Results Data Completed and Pending Labs on day of discharge: Labs from last 24 hours 06/24/24 06/24/24 06/24/24 14:40 08:49 08:40 WBC 6.8 RBC 3.80 L Hgb 12.2 L Hct 35.3 L MCV 92.9 MCH 32.1 H MCHC 34.6 RDW 14.6 Plt Count 50 L MPV 11.9 H Neut % (Auto) 72.4 Lymph % (Auto) 20.8 [place] % (Auto) 5.4 Eos % (Auto) 0.7 Baso % (Auto) 0.4 Neut # (Auto) 4.9 Lymph # (Auto) 1.4 [place] # (Auto) 0.4 Eos # (Auto) 0.1 Baso # (Auto) 0.0 Sodium 131 L 129 L Potassium 2.4 L* 2.9 L* Chloride 91 L 97 L Carbon Dioxide 26 24 Anion Gap 16.4 H 10.9 BUN 4 L 4 L D Creatinine 0.70 D 0.50 L Estimated Creat Clear 153 214 Estimated GFR 118 173 Est GFR ( Amer) 142 D 210 D Glucose 176 H D 126 H POC Glucose Calcium 7.7 L 7.9 L Magnesium 1.4 L D 1.7 Total Bilirubin 4.5 H AST 114 H D ALT 48 D Alkaline Phosphatase 139 H Total Protein 6.1 L Albumin 3.8 D Globulin 2.3 Albumin/Globulin Ratio 1.7 Hepatitis A IgM Ab Hep Bs Antigen Hep B Core IgM Ab Hepatitis C Antibody HCV RNA PCR Test Info 06/24/24 06/23/24 06/23/24 06:16 21:34 10:11 WBC RBC Hgb Hct MCV MCH MCHC RDW Plt Count MPV Neut % (Auto) Lymph % (Auto) [place] % (Auto) Eos % (Auto) Baso % (Auto) Neut # (Auto) Lymph # (Auto) [place] # (Auto) Eos # (Auto) Baso # (Auto) Sodium Potassium Chloride Carbon Dioxide Anion Gap BUN Creatinine Estimated Creat Clear Estimated GFR Est GFR ( Amer) Glucose POC Glucose 106 131 H Calcium Magnesium Total Bilirubin AST ALT Alkaline Phosphatase Total Protein Albumin Globulin Albumin/Globulin Ratio Hepatitis A IgM Ab Negative Hep Bs Antigen Negative Hep B Core IgM Ab Negative Hepatitis C Antibody Non reactive HCV RNA PCR Test Info Comment Preliminary micro results at discharge 06/21/24 23:09 Blood Culture - Preliminary Blood NO GROWTH AFTER 48 HOURS 06/21/24 22:30 Blood Culture - Preliminary Blood NO GROWTH AFTER 48 HOURS DS: Diagnosis Discharge Diagnosis (1) C. difficile diarrhea: Status: Acute Code(s): A04.72 - Enterocolitis due to Clostridium difficile, not specified as recurrent Meds Home Medications and Allergies Home Medications ?Medication ?Instructions ?Recorded ?Confirmed ?Type blood sugar diagnostic (True #50 ea 04/13/23 07/03/24 Rx Metrix Glucose Test Strip) polyethylene glycol 3350 17 17 g PO DAILY 12/21/23 07/03/24 History gram/dose oral powder spironolactone 100 mg tablet 100 mg PO DAILY #30 tabs 01/19/24 07/03/24 Rx umeclidinium 62.5 mcg-vilanterol 1 inh inhalation DAILY #60 ea 02/07/24 07/03/24 Rx 25 mcg/actuation powdr for inhalation (Anoro Ellipta) methocarbamol 500 mg tablet 500 mg PO HS #30 tabs 05/08/24 07/03/24 Rx metoprolol succinate 25 mg 25 mg PO DAILY #30 tabs 05/08/24 07/03/24 Rx tablet,extended release 24 hr hydroxyzine pamoate 25 mg capsule 25 - 50 mg PO HSP PRN Sleep 06/22/24 07/03/24 History tramadol 50 mg tablet 50 mg PO BIDP PRN Moderate Pain 06/22/24 07/03/24 History (Scale Score 5-6) trazodone 150 mg tablet 150 mg PO HS 06/22/24 07/03/24 History furosemide 40 mg tablet 40 mg PO BID #30 tabs 06/24/24 07/03/24 Rx magnesium oxide 400 mg PO DAILY #30 tabs 06/24/24 07/03/24 Rx potassium chloride 10 mEq 20 meq (2 x 10 mEq) PO BID 30 days 06/24/24 07/03/24 Rx tablet,extended release(part/cryst) #0 tabs vancomycin 50 mg/mL oral solution 125 mg (2.5 mL) PO QID 8 days #0 mL 06/24/24 07/03/24 Rx (Firvanq) albuterol sulfate 90 mcg/actuation 2 puff inhalation Q4HP PRN 06/25/24 07/03/24 Rx aerosol inhaler (Ventolin HFA) Shortness Of Breath Or Wheezing #8.5 grams New Prescriptions to Start Prescriptions: magnesium Pedor oJy Allergies Allergy/AdvReac Type Severity Reaction Status Date / Time amoxicillin AdvReac Hives Verified 07/03/24 08:16 Penicillins AdvReac Hives Verified 07/03/24 08:16 Discharge Plan Disposition Patient Disposition: Home, Self-Care Condition: Fair Discharge Order Discharge Orders: Discharge Order (Routine); Ordered 06/24/24 Ordered By: Pedro Li Follow up Plan Follow up with: Alberto Escobedo II, MD [Staff Physician] - Enter time for follow up (please call for appointment) Kwaku Isidro MD [Primary Care Provider] - 06/25/24 (please call for appointment) Prescriptions/Medication Reconciliation: New vancomycin [Firvanq] 50 mg/mL Recon Soln 125 mg PO QID 8 Days Qty: 0 0RF magnesium oxide 400 mg magnesium tablet 400 mg PO DAILY Qty: 30 0RF Continued metoprolol succinate 25 mg tablet extended release 24 hr 25 mg PO DAILY Qty: 30 2RF methocarbamol 500 mg tablet 500 mg PO HS Qty: 30 1RF polyethylene glycol 3350 17 gram/dose powder 17 g PO DAILY spironolactone 100 mg tablet 100 mg PO DAILY Qty: 30 3RF (DME) True Metrix Glucose Test Strip Strip See Rx Instructions .Route Qty: 50 11RF Rx Instructions: As directed Anoro Ellipta 62.5-25 mcg/actuation blister with device 1 inh inhalation DAILY Qty: 60 5RF trazodone 150 mg tablet 150 mg PO HS hydroxyzine pamoate 25 mg capsule 25 - 50 mg PO HSP PRN (Reason: Sleep) Patient Comments: TAKE 1 TO 2 CAPSULES BY MOUTH AT BEDTIME NIGHTLY NEEDED FOR SLEEP. tramadol 50 mg tablet 50 mg PO BIDP PRN (Reason: Moderate Pain (Scale Score 5-6)) Changed furosemide 40 mg tablet 40 mg PO BID Qty: 30 3RF potassium chloride 10 mEq tablet,ER particles/crystals 20 meq PO BID 30 Days Qty: 0 0RF Patient Comments: TAKE 1 TABLET BY MOUTH TWICE A DAY No Action albuterol sulfate [Ventolin HFA] 90 mcg/actuation HFA aerosol inhaler 2 puff inhalation Q4HP PRN (Reason: Shortness Of Breath Or Wheezing) Qty: 8.5 3RF Problem Reconciliation Problems Reviewed?: Yes Patient Discharge Instructions Additional Instructions: Your potassium is still low. Take 40meQ twice daily for the next 3 days. Please follow-up with Dr. Ames in the next 2 days. Patient Instructions: Alcohol and Stress: There are Safer Ways to [place], Sepsis, Alcohol Withdrawal Print Language: Russian Providers Primary Care Provider: Kwaku SAM Admit Provider: Pedro Li Attending Provider: Pedro Li
[2024-06-24 18:13] LABS: Chloride 93 mmol/L (98-107); Sodium 132 mmol/L (136-145)
[2024-06-24 18:16] LABS: Anion Gap 13.6 mEq/L (5-15); Blood Urea Nitrogen 3 mg/dl (9-20); Carbon Dioxide 28 mmol/L (22.0-30.0); Creatinine Clearance Estimated 153 mL/min (50-200); Estimated Glomerular Filt Rate 118 ml/min (>60); GFR (African American) 142 ML/MIN (>60)
[2024-06-24 18:17] LABS: Calcium 8.1 mg/dl (8.4-10.2); Glucose 128 mg/dl (74-100)
[2024-06-24 18:19] LABS: Potassium 2.6 mmoL/L (3.5-5.1)
[2024-06-24 18:23] LABS: Magnesium 1.8 mg/dl (1.6-2.3)
--- NOTE | 2024-06-24 18:25 | PC.NURSE ---
notified [facility] of potassium level of 2.6. pt is eager to go home and states he will come in, or make his f/u appt with primary care for repeat labs in 2 days if he can go home today and will comply with home potassium increase, made [facility] aware.
--- NOTE | 2024-06-25 11:36 | SW/DCPLANNER ---
Spoke with patient on the phone. Patient stated that he is doing well. Patient stated that his feet swelled up last night and that he is propping them up. Patient stated that he is going to call and schedule his appointments. Patient stated that he has no concerns or questions at this time. Yordy Ortiz
== END 2024-06-24 18:55 | disposition home or self-care (01) | DRG 372 ==
LOC: ER 23:45 → ICU 06-22 00:08 → 2ND 06-23 14:31
PROVIDERS: Nurse Practitioner Family; Admitting Provider Student in an Organized Health Care Education/Training Program; Emergency Provider Emergency Medicine; PCP Family Medicine; Visit Provider Student in an Organized Health Care Education/Training Program
DX: A04.72 Enterocolitis due to Clostridium difficile, not specified as recurrent (principal); E87.1 Hypo-osmolality and hyponatremia; F10.930 Alcohol use, unspecified with withdrawal, uncomplicated; Y90.2 Blood alcohol level of 40-59 mg/100 ml; K70.31 Alcoholic cirrhosis of liver with ascites; F17.210 Nicotine dependence, cigarettes, uncomplicated; Z88.0 Allergy status to penicillin; Z88.1 Allergy status to other antibiotic agents; Z79.51 Long term (current) use of inhaled steroids; Z79.899 Other long term (current) drug therapy; E87.6 Hypokalemia; J44.9 Chronic obstructive pulmonary disease, unspecified; E03.9 Hypothyroidism, unspecified; R74.01 Elevation of levels of liver transaminase levels; D69.6 Thrombocytopenia, unspecified; E11.9 Type 2 diabetes mellitus without complications; Z79.84 Long term (current) use of oral hypoglycemic drugs; G47.33 Obstructive sleep apnea (adult) (pediatric); Z99.89 Dependence on other enabling machines and devices; M41.9 Scoliosis, unspecified
CPT/HCPCS: 36415; 70450; 74174; 76705; 80048; 80053; 80074; 80307; 80320; 80329; 82140; 82247; 82803; 82962; 83605; 83690; 83735; 83880; 84100; 84484; 84540; 85025; 85610; 85730; 86803; 87040; 87045; 87081; 87507; 93005; 94640; 99291; J1940; J2060; J2405; J3370; J3411; J3475; J3480; J7030; J7120; J7620; Q9967

== ENCOUNTER 2024-06-26 09:57 | Outpatient (CLI) | payer OTHER, SELFPAY ==
[2024-06-26 21:12] LABS: Chloride 87 mmol/L (98-107); Sodium 129 mmol/L (136-145)
[2024-06-26 21:15] LABS: Blood Urea Nitrogen 3 mg/dl (9-20); Estimated Glomerular Filt Rate 140 ml/min (>60); GFR (African American) 170 ML/MIN (>60)
[2024-06-26 21:16] LABS: Anion Gap 11.5 mEq/L (5-15); Calcium 8.1 mg/dl (8.4-10.2); Carbon Dioxide 33 mmol/L (22.0-30.0); Glucose 122 mg/dl (74-100)
[2024-06-26 21:25] LABS: Potassium 2.5 mmoL/L (3.5-5.1)
== END 2024-06-26 23:59 | disposition home or self-care (01) ==
LOC: LAB.DROPOF 06-27 09:58
PROVIDERS: PCP Family Medicine; Visit Provider Family Medicine
DX: E87.6 Hypokalemia (principal)
CPT/HCPCS: 80048

== ENCOUNTER 2024-07-03 20:16 | Outpatient (CLI) | payer OTHER, SELFPAY ==
[2024-07-03 22:56] LABS: Chloride 88 mmol/L (98-107); Sodium 125 mmol/L (136-145)
[2024-07-03 22:57] LABS: Potassium 3.3 mmoL/L (3.5-5.1)
[2024-07-03 23:00] LABS: Anion Gap 11.3 mEq/L (5-15); Blood Urea Nitrogen 5 mg/dl (9-20); Calcium 8.6 mg/dl (8.4-10.2); Carbon Dioxide 29 mmol/L (22.0-30.0); Estimated Glomerular Filt Rate 118 ml/min (>60); GFR (African American) 142 ML/MIN (>60); Glucose 108 mg/dl (74-100)
== END 2024-07-03 23:59 | disposition home or self-care (01) ==
LOC: LAB 20:16
PROVIDERS: PCP Family Medicine; Visit Provider Family Medicine
DX: E87.6 Hypokalemia (principal)
CPT/HCPCS: 80048

== ENCOUNTER 2024-08-04 22:04 | Inpatient (IN) | payer MEDICAID, SELFPAY ==
[2024-08-04 22:03] VITALS: BP 144/78; PULSE 111; RESP 20; TEMP 36.9; O2SAT 92; BMI 28.7
--- NOTE | 2024-08-04 22:08 | ED_ITS ---
Discharge Plan Disposition Chief Complaint: Abdominal Pain Prescriptions Prescriptions: No Action metoprolol succinate 25 mg tablet extended release 24 hr 25 mg PO DAILY Qty: 30 2RF ipratropium-albuterol 0.5 mg-3 mg(2.5 mg base)/3 mL solution for nebulization inhalation Patient Comments: INHALE THE CONTENTS OF 1 VIAL VIA NEBULIZER 4 TIMES DAILY NEEDED FOR SHORTNESS OF BREATH OR WHEEZING. potassium chloride 20 mEq tablet extended release PO BID Patient Comments: TAKE 1 TABLET BY MOUTH TWICE DAILY. topiramate 25 mg tablet 25 mg PO .COMPLEX Qty: 60 2RF Rx Instructions: 25 mg orally qhs x 1wk, then increase to BID thereafter; polyethylene glycol 3350 17 gram/dose powder 17 g PO DAILY spironolactone 100 mg tablet 100 mg PO DAILY Qty: 30 3RF (DME) True Metrix Glucose Test Strip Strip See Rx Instructions .Route Qty: 50 11RF Rx Instructions: As directed Anoro Ellipta 62.5-25 mcg/actuation blister with device 1 inh inhalation DAILY Qty: 60 5RF albuterol sulfate [Ventolin HFA] 90 mcg/actuation HFA aerosol inhaler 2 puff inhalation Q4HP PRN (Reason: Shortness Of Breath Or Wheezing) Qty: 8.5 3RF furosemide 40 mg tablet 40 mg PO BID Qty: 60 0RF methocarbamol 500 mg tablet 500 mg PO HS Qty: 30 1RF trazodone 150 mg tablet 150 mg PO HS hydroxyzine pamoate 25 mg capsule 25 - 50 mg PO HSP PRN (Reason: Sleep) Patient Comments: TAKE 1 TO 2 CAPSULES BY MOUTH AT BEDTIME NIGHTLY NEEDED FOR SLEEP. tramadol 50 mg tablet 50 mg PO BIDP PRN (Reason: Moderate Pain (Scale Score 5-6)) vancomycin [Firvanq] 50 mg/mL Recon Soln 125 mg PO QID 8 Days Qty: 0 0RF magnesium oxide 400 mg magnesium tablet 400 mg PO DAILY Qty: 30 0RF potassium chloride 10 mEq tablet,ER particles/crystals 20 meq PO BID 30 Days Qty: 0 0RF Patient Comments: TAKE 1 TABLET BY MOUTH TWICE A DAY Referrals Follow up/Referrals: Provider,Referral, MD [Primary Care Provider] - See instructions Instructions Patient Instructions: DI for Acute Abdominal Pain Print Language Print Language: Mauritanian Discharge ED Provider: Arturo,Itz General Adult HPI General Chief complaint: Abdominal Pain Stated complaint: Retaining fluid Time Seen by Provider: 08/04/24 22:08 History of Present Illness HPI narrative: Patient presents for evaluation of abdominal distention, pain, shortness of breath, gradual in onset starting over 1 month ago, constant, worsening associated symptoms include nausea. No fevers or chills. Patient had similar symptoms requiring admission with associated electrolyte abnormalities. Denies any chest pain. Please note that above description of symptoms, in this electronic medical record under categorization of recalled from ER triage doctor by RN are reflective of an initial nursing assessment, however, is not reflective of my full history and physical exam that was personally taken and clarified. Consequentially, this preceding description of symptoms, which may include the patient's categorized chief complaint in the EMR, do not reflect my personal clinical impression, and the ultimate description of history of present illness and patient stated complaints should be deferred to this section of the note. Unless stated otherwise or congruent with this section of the note, additional signs, symptoms, or incongruence should be interpreted as inaccurate with my clinical impression. Related Data Home Medications ?Medication ?Instructions ?Recorded ?Confirmed polyethylene glycol 3350 17 17 g PO DAILY 12/21/23 07/25/24 gram/dose oral powder hydroxyzine pamoate 25 mg capsule 25 - 50 mg PO HSP PRN Sleep 06/22/24 07/25/24 tramadol 50 mg tablet 50 mg PO BIDP PRN Moderate Pain 06/22/24 07/25/24 (Scale Score 5-6) trazodone 150 mg tablet 150 mg PO HS 06/22/24 07/25/24 ipratropium 0.5 mg-albuterol 3 mg ml inhalation 07/25/24 07/25/24 (2.5 mg base)/3 mL nebulization soln potassium chloride 20 mEq meq PO BID 07/25/24 07/25/24 tablet,extended release Previous Rx's ?Medication ?Instructions ?Recorded blood sugar diagnostic (True #50 ea 04/13/23 Metrix Glucose Test Strip) spironolactone 100 mg tablet 100 mg PO DAILY #30 tabs 01/19/24 umeclidinium 62.5 mcg-vilanterol 1 inh inhalation DAILY #60 ea 02/07/24 25 mcg/actuation powdr for inhalation (Anoro Ellipta) metoprolol succinate 25 mg 25 mg PO DAILY #30 tabs 05/08/24 tablet,extended release 24 hr magnesium oxide 400 mg PO DAILY #30 tabs 06/24/24 potassium chloride 10 mEq 20 meq (2 x 10 mEq) PO BID 30 days 06/24/24 tablet,extended release(part/cryst) #0 tabs vancomycin 50 mg/mL oral solution 125 mg (2.5 mL) PO QID 8 days #0 mL 06/24/24 (Firvanq) albuterol sulfate 90 mcg/actuation 2 puff inhalation Q4HP PRN 06/25/24 aerosol inhaler (Ventolin HFA) Shortness Of Breath Or Wheezing #8.5 grams furosemide 40 mg tablet 40 mg PO BID #60 tabs 07/17/24 methocarbamol 500 mg tablet 500 mg PO HS #30 tabs 07/23/24 topiramate 25 mg tablet 25 mg PO .COMPLEX #60 tabs 07/25/24 Allergies Allergy/AdvReac Type Severity Reaction Status Date / Time amoxicillin AdvReac Hives Verified 07/25/24 08:09 Penicillins AdvReac Hives Verified 07/25/24 08:09 PFSH [facility] Disclaimer: The information contained in this section may have been updated after the patient was seen, as this information can be updated by other users. Medical History Colon polyps Hyponatremia LEANNA on CPAP Degenerative disc disease Encounter for screening for malignant neoplasm of lung Smoking greater than 30 pack years Dyspnea on exertion Sleep apnea COPD (chronic obstructive pulmonary disease) Back pain Diarrhea Hypothyroidism Ganglion cyst Alcohol abuse Steatohepatitis, alcoholic Sleep disturbance Inconclusive HSAT on 07/21/2022. Total recording time 4 hours, AHI 1, RDI 2, loud snoring and increased sleep related arousals were recorded during 38% of total sleep time. Patient was unable to sleep well throughout the night and results are not consistent with reorted sleep pattern. Snoring Has daytime drowsiness Neck pain Scoliosis (and kyphoscoliosis), idiopathic Degenerative disc disease, lumbar Tobacco abuse Advised to consider smoking cessation. COPD (chronic obstructive pulmonary disease) with acute bronchitis Hepatomegaly Type 2 diabetes mellitus without complications Elevated BP without diagnosis of hypertension Will request recent records, labs, consult notes. Abdominal wall pain Discussed with patient DDx: ventral abdominal hernia vs diastasis recti. Will request recent imaging. Diabetes Surgical History History of elbow surgery History of hernia surgery Family History Other Cancer Social History Smoking Status: Current every day smoker alcohol intake: current alcohol intake frequency: 3 or more drinks per day substance use type: denies use current occupational status: unemployed Travel in the last 8 weeks: None household members: significant other housing: house marital status: Have you lived/traveled outside [place] in past 30 days?: No Contact w/someone who lives/traveled outside [place] past 30 days?: No Exposure to someone with infectious disease in past 14 days?: No Do you have a fever (greater than 100.4 F or 38 C)?: No Have you tested positive for COVID-19: No Exposed to someone with COVID-19 in past 14 days?: No Do you have a sore throat?: No Do you have a cough?: No Do you have any weakness?: No Do you have any diarrhea?: No Are you experiencing any unusual bleeding?: No Do you have any muscle aches/pain?: No Do you have any abdominal pain?: No Are you experiencing loss of taste or smell?: No Other Medical History Have you received the Flu Vaccine for this season: No Have you received the Pneumonia Vaccine: No ROS Obtained: Yes other As per HPI Physical Exam General General appearance: alert and in no apparent distress Head Head exam: atraumatic and normocephalic Eye Eye exam: Present normal appearance Neck Neck exam: Present normal inspection Chest Chest inspection: Present normal inspection and symmetric chest wall rise Respiratory Respiratory exam: Present normal lung sounds bilaterally; Absent respiratory distress Cardiovascular Cardiovascular exam: Present regular rate and normal rhythm Abdominal Exam Abdominal exam: Present distention and tenderness Neurological Exam Neurological exam: Present alert and oriented X3 Psychiatric Psychiatric exam: Present normal affect and normal mood Skin Skin exam: Present warm and dry Medical Decision Making Medical Records Medical records reviewed: Yes I reviewed the patient's medical records. Screening: Per USPSTF and CDC recommendations, given the prevalence of disease in our region, it is our hospital?s policy to screen for HIV and viral Hepatitis for all patients aged 18 and over and those with ongoing risk factors. Danny Inquiry Pt receiving controlled substance: No Vital Signs: 08/04/24 22:03 Temperature 98.5 F Temperature Source Oral Pulse Rate [Right Radial] 111 H Respiratory Rate 20 Blood Pressure [Right Arm] 144/78 H Blood Pressure Mean [Right Arm] 100 Blood Pressure Source [Right Arm] Automatic Cuff Blood Pressure Position [Right Arm] Sitting 02 Sat by Pulse Oximetry 92 L Oxygen Delivery Method Room Air Lab Data Lab Results 08/04/24 21:57: WBC 14.3 H, RBC 3.65 L, Hgb 12.0 L, Hct 33.9 L, MCV 92.9, MCH 32.9 H, MCHC 35.4, RDW 14.7, Plt Count 129 L, MPV 10.1, Neut % (Auto) 69.4, Lymph % (Auto) 19.0, [place] % (Auto) 9.7 H, Eos % (Auto) 1.0, Baso % (Auto) 0.3, N eut # (Auto) 9.9 H, Lymph # (Auto) 2.7, [place] # (Auto) 1.4 H, Eos # (Auto) 0.2, Baso # (Auto) 0.1, PT 15.2 H, INR 1.40 H, Sodium 127 L, Potassium 2.3 L*, C hloride 88 L, Carbon Dioxide 34 H, Anion Gap 7.3, BUN 6 L, Creatinine 0.60 L, Estimated GFR 140, Est GFR ( Amer) 170, Glucose 134 H, Calcium 8.0 L, M agnesium 1.5 L, Total Bilirubin 3.8 H, AST 62 H, ALT 31, Alkaline Phosphatase 196 H, Total Protein 6.0 L, Albumin 3.0 L, Globulin 3.0, Albumin/Globulin Ratio 1.0 L, Lipase 295, Acetaminophen < 10 L, Plasma/Serum Alcohol < 10 08/04/24 21:57 08/04/24 21:57 Orders (Tests/Meds): ED MEDICATIONS Generic Name Dose Route Start Last Admin Trade Name Freq PRN Reason Stop Dose Admin Magnesium Sulfate 2 gm in 50 mls @ 50 mls/hr 08/04/24 23:04 08/04/24 23:17 Magnesium Sulfate 2gm/50ml Premix IV 08/05/24 00:03 50 mls/hr ONCE ONE Administration Potassium Chloride/Water 100 mls @ 100 mls/hr 08/04/24 23:15 08/04/24 23:17 Potassium Chloride 10meq/100ml Ivpb IV 08/05/24 02:14 100 mls/hr Q1H FLAVIO Administration ORDERS Category Date Time Status XR chest portable Stat Exams 08/04/24 23:05 Ordered Acetaminophen Stat Lab 08/04/24 21:57 Completed Body Fluid: Cell Count w/ Diff Stat Lab 08/04/24 22:55 Received CBC w/Auto Diff [Complete Blood Count Auto Diff] Stat Lab 08/04/24 21:57 Completed CMP [Comprehensive Metabolic Panel] Stat Lab 08/04/24 21:57 Completed Ethanol [Ethyl Alcohol] Stat Lab 08/04/24 21:57 Completed HIV Combo Stat Lab 08/04/24 21:57 Received Hepatitis C Ab Qual. W/ RFX Stat Lab 08/04/24 21:57 Received Lipase Stat Lab 08/04/24 21:57 Completed MAG [Magnesium] Stat Lab 08/04/24 21:57 Completed PT INR [Prothrombin Time INR] Stat Lab 08/04/24 21:57 Completed Body Fluid Cult & Gram Stain Stat Micro 08/04/24 22:55 Received Medical Decision Narrative: Patient with history and exam per above presenting for evaluation of abdominal distention Diagnoses considered include cirrhosis, SBP, electrolyte abnormalities, hepatic hydrothorax, among others ED workup and treatment included: ED MEDICATIONS Generic Name Dose Route Start Last Admin Trade Name Freq PRN Reason Stop Dose Admin Magnesium Sulfate 2 gm in 50 mls @ 50 mls/hr 08/04/24 23:04 08/04/24 23:17 Magnesium Sulfate 2gm/50ml Premix IV 08/05/24 00:03 50 mls/hr ONCE ONE Administration Potassium Chloride/Water 100 mls @ 100 mls/hr 08/04/24 23:15 08/04/24 23:17 Potassium Chloride 10meq/100ml Ivpb IV 08/05/24 02:14 100 mls/hr Q1H FLAVIO Administration ORDERS Category Date Time Status XR chest portable Stat Exams 08/04/24 23:05 Ordered Acetaminophen Stat Lab 08/04/24 21:57 Completed Body Fluid: Cell Count w/ Diff Stat Lab 08/04/24 22:55 Received CBC w/Auto Diff [Complete Blood Count Auto Diff] Stat Lab 08/04/24 21:57 Completed CMP [Comprehensive Metabolic Panel] Stat Lab 08/04/24 21:57 Completed Ethanol [Ethyl Alcohol] Stat Lab 08/04/24 21:57 Completed HIV Combo Stat Lab 08/04/24 21:57 Received Hepatitis C Ab Qual. W/ RFX Stat Lab 08/04/24 21:57 Received Lipase Stat Lab 08/04/24 21:57 Completed MAG [Magnesium] Stat Lab 08/04/24 21:57 Completed PT INR [Prothrombin Time INR] Stat Lab 08/04/24 21:57 Completed Body Fluid Cult & Gram Stain Stat Micro 08/04/24 22:55 Received Labs were independently interpreted by me, significant for leukocytosis, hypokalemia, hypomagnesemia, hyponatremia Imaging pending at this time Please refer to radiology report for full details. Diagnostic and therapeutic paracentesis was performed please see procedure note. Patient will benefit from admission for further management of decompensated cirrhosis patient was admitted to hospitalist service Procedures Paracentesis Time Out Performed: Yes Indication: possible spontaneous bacterial peritonitis Procedure: therapeutic paracentesis Location: RLQ Local Anesthetic: lidocaine 1% Amount of anesthesia used (mL): 5 Bedside Ultrasound Used: yes, Ascites confirmed and location marked Preparation: 11 blade used to make moshe in skin Amount of fluid obtained (mL): 3,000 Fluid: clear Post Procedure Exam: awake, alert Patient Tolerated Procedure: well Complications: none Critical Care Critical Care Time Critical Care Time: No
[2024-08-04 22:18] LABS: Basophils # 0.1 K/mm3 (0-0.2); Basophils % 0.3 % (0.1-2.0); Eosinophils # 0.2 K/mm3 (0.0-0.4); Hematocrit 33.9 % (42.0-52.0); Lymphocytes # 2.7 K/mm3 (0.7-4.5); Mean Corpuscular HGB Conc 35.4 g/dL (31.8-35.4); Mean Corpuscular Hemoglobin 32.9 pg (27.0-31.2); Mean Corpuscular Volume 92.9 fl (80-94); Mean Platelet Volume 10.1 fl (7.4-10.4); Monocytes # 1.4 K/mm3 (0.1-1.0); Monocytes % 9.7 % (1.7-9.3); Neutrophils # 9.9 K/mm3 (1.8-7.8); Neutrophils % 69.4 % (37.0-80.0); Nucleated Red Blood Cells # 0 10^3/uL; Nucleated Red Blood Cells % 0 %; Platelet Count 129 K/mm3 (142-424); Red Blood Count 3.65 M/mm3 (4.60-6.20); Red Cell Distribution Width 14.7 % (11.5-17.5); Red Cell Distribution Width-SD 50.5 fL; White Blood Count 14.3 K/mm3 (4.8-10.8)
[2024-08-04 22:21] LABS: Chloride 88 mmol/L (98-107); Sodium 127 mmol/L (136-145)
[2024-08-04 22:23] LABS: Potassium 2.3 mmoL/L (3.5-5.1)
[2024-08-04 22:24] LABS: Alanine Aminotransferase 31 U/L (12-78); Alkaline Phosphatase 196 U/L (38-126); Anion Gap 7.3 mEq/L (5-15); Aspartate Amino Transferase 62 U/L (17-59); Bilirubin,Total 3.8 mg/dl (0.2-1.3); Blood Urea Nitrogen 6 mg/dl (9-20); Carbon Dioxide 34 mmol/L (22.0-30.0); Estimated Glomerular Filt Rate 140 ml/min (>60); GFR (African American) 170 ML/MIN (>60); Glucose 134 mg/dl (74-100); Lipase 295 U/L (23-300); Magnesium 1.5 mg/dl (1.6-2.3)
[2024-08-04 22:25] LABS: Acetaminophen < 10 ug/ml (10-30); Ethyl Alcohol < 10 mg/dl (0-10)
--- NOTE | 2024-08-04 22:43 | PC.NURSE ---
provider at bedside to paracentesis
[2024-08-04 22:47] LABS: Prothrombin Time 15.2 seconds (10.1-12.5)
--- NOTE | 2024-08-04 22:51 | PC.NURSE ---
abd tapped and drain being secured per Nima Morris
--- NOTE | 2024-08-04 23:05 | XR_ITS ---
PROCEDURE INFORMATION: Exam: XR Chest Exam date and time: 08/04/2024 11:23 PM Age: 54 years old Clinical indication: Shortness of breath; Additional info: SOA, HX cirrhosis TECHNIQUE: Imaging protocol: Radiologic exam of the chest. Views: 1 view. COMPARISON: 1. CR XR CHEST PORTABLE 12/03/2023 1:[address] ANGIO ABDOMEN PELVIS 06/21/2024 10:57 PM FINDINGS: Lungs: There is bibasilar airspace disease. The lung volumes are low. Pleural spaces: Unremarkable. No pleural effusion. No pneumothorax. Heart/Mediastinum: Unremarkable. No cardiomegaly. Vasculature: Unremarkable. Bones/joints: Unremarkable. IMPRESSION: Bibasilar infiltrates versus atelectasis.
--- NOTE | 2024-08-04 23:14 | PC.NURSE ---
Paracentesis completed by MD Morris. 1100 ml ascites fluid emptied from cannister at this time.
[2024-08-04] MEDS: MAGNESIUM SULFATE IN WATER 2 GM/50 ML PIGGYBACK IV (23:17)
[2024-08-04] MEDS: KCl 10mEq/100ml 100 ML 100 MEQ IV (23:17)
--- NOTE | 2024-08-04 23:18 | PC.NURSE ---
pt admitted to hospitalist for decompensated cirrhosis. Called customs house broker for bed assignment
[2024-08-04 23:20] LABS: Appearance,Body Fld. Normal; Source, Body Fld. Peritoneal Fluid; Volume,Body Fld. 21 mL
--- NOTE | 2024-08-04 23:23 | PC.NURSE ---
2000 ml peritoneal fluid drained. Drainage bag changed and clamped off at this time per MD Morris.
[2024-08-04 23:27] VITALS: PULSE 101; RESP 20; O2SAT 91
--- NOTE | 2024-08-04 23:31 | P.HP_ITS ---
<Statement entered by Pedro Li MD - 08/06/24 11:41> Personally evaluated patient and agree with the plan of care outlined by the MINIATURE SET DESIGNER. History of Present Illness *Admission Date: 08/04/24 *Reason for visit:: Shortness of breath, abdominal distention *History of present illness: A 45-year-old male with a history of alcoholic cirrhosis, tobacco dependence, chronic obstructive pulmonary disease (COPD), and recent alcohol cessation (last drink 2 weeks ago) presents to the emergency department for evaluation of abdominal distention, pain, and shortness of breath. The patient reports these symptoms began gradually over the past month, are constant, and have worsened, with associated nausea but no fevers or chills. He denies chest pain. He notes a prior admission for similar symptoms with electrolyte abnormalities. He is currently seeking a new gastroenterology physician and treatment for alcoholism. He was previously treated in the month of June for C. difficile colitis. He states he finished prescribed antibiotics and he has no return of diarrhea. The history was obtained directly from the patient during my personal history and physical exam. On examination, the patient is hemodynamically stable, alert, and oriented, Physical exam reveals a distended abdomen with mild tenderness on palpation, no rebound or guarding, and no organomegaly. Lungs show bilateral basilar crackles, likely related to low lung volumes or infiltrates, consistent with COPD and possible atelectasis. Cardiac exam is unremarkable, with no murmurs or jugular venous distension. No lower extremity edema is noted. Diagnostic workup includes labs showing leukocytosis (WBC 14.3 x10?/?L), mild anemia (hemoglobin 12.0 g/dL, hematocrit 33.9%), thrombocytopenia (platelets 129 x10?/?L), hyponatremia (sodium 127 mmol/L), hypokalemia (potassium 2.3 mmol/L), hypochloremia (chloride 88 mmol/L), elevated CO2 (34 mmol/L), low creatinine (0.60 mg/dL), and elevated glucose (134 mg/dL). Liver function tests reveal elevated total bilirubin (3.8 mg/dL), AST (62 U/L), alkaline phosphatase (196 U/L), low albumin (3.0 g/dL), and low total protein (6.0 g/dL), consistent with cirrhosis. Coagulation studies show prolonged PT (15.2 seconds) and INR (1.40). Magnesium is low (1.5 mg/dL), and lipase is normal (295 U/L). Right upper quadrant ultrasound demonstrates a cirrhotic liver with nodular contour, small perihepatic ascites, and nonspecific gallbladder wall thickening (6 mm) without gallstones. Chest X-ray shows bibasilar infiltrates versus atelectasis, with no pleural effusion or cardiomegaly. Treatments implemented in the emergency department include a paracentesis with removal of 3 L of ascitic fluid, with the catheter left in place for potential further drainage. No additional medications or fluids are noted as initiated in the ED. The patient was evaluated for admission due to ongoing symptoms, electrolyte abnormalities, and underlying cirrhosis. [facility] Disclaimer: The information contained in this section may have been updated after the patient was seen, as this information can be updated by other users. Medical History Colon polyps Hyponatremia LEANNA on CPAP Degenerative disc disease Encounter for screening for malignant neoplasm of lung Smoking greater than 30 pack years Dyspnea on exertion Sleep apnea COPD (chronic obstructive pulmonary disease) Back pain Diarrhea Hypothyroidism Ganglion cyst Alcohol abuse Steatohepatitis, alcoholic Sleep disturbance Inconclusive HSAT on 07/21/2022. Total recording time 4 hours, AHI 1, RDI 2, loud snoring and increased sleep related arousals were recorded during 38% of total sleep time. Patient was unable to sleep well throughout the night and results are not consistent with reorted sleep pattern. Snoring Has daytime drowsiness Neck pain Scoliosis (and kyphoscoliosis), idiopathic Degenerative disc disease, lumbar Tobacco abuse Advised to consider smoking cessation. COPD (chronic obstructive pulmonary disease) with acute bronchitis Hepatomegaly Type 2 diabetes mellitus without complications Elevated BP without diagnosis of hypertension Will request recent records, labs, consult notes. Abdominal wall pain Discussed with patient DDx: ventral abdominal hernia vs diastasis recti. Will request recent imaging. Diabetes Surgical History History of elbow surgery History of hernia surgery Family History Other Cancer Social History (Updated 08/05/24 @ 00:56 by Elva Hatch RN) Smoking Status: Current every day smoker alcohol intake: current alcohol intake frequency: 3 or more drinks per day substance use type: denies use current occupational status: unemployed Travel in the last 8 weeks: None household members: significant other housing: house marital status: Have you lived/traveled outside [place] in past 30 days?: No Contact w/someone who lives/traveled outside US past 30 days?: No Exposure to someone with infectious disease in past 14 days?: No Do you have a fever (greater than 100.4 F or 38 C)?: No Have you tested positive for COVID-19: No Exposed to someone with COVID-19 in past 14 days?: No Do you have a sore throat?: No Do you have a cough?: No Do you have any weakness?: No Are you experiencing any nausea/vomitting?: No Do you have any diarrhea?: No Are you experiencing any unusual bleeding?: No Do you have any muscle aches/pain?: No Do you have any abdominal pain?: No Are you experiencing loss of taste or smell?: No Other Medical History Have you received the Flu Vaccine for this season: No Have you received the Pneumonia Vaccine: No Review of Systems Review of Systems Review of systems (narrative): 13 point review of systems negative except as listed in HPI Meds Home Medications and Allergies Home Medications ?Medication ?Instructions ?Recorded ?Confirmed ?Type blood sugar diagnostic (True #50 ea 04/13/23 08/05/24 Rx Metrix Glucose Test Strip) metoprolol succinate 25 mg 25 mg PO DAILY #30 tabs 05/08/24 08/05/24 Rx tablet,extended release 24 hr hydroxyzine pamoate 25 mg capsule 25 - 50 mg PO HSP PRN Sleep 06/22/24 08/05/24 History tramadol 50 mg tablet 50 mg PO BIDP PRN Moderate Pain 06/22/24 08/05/24 History (Scale Score 5-6) trazodone 150 mg tablet 150 mg PO HS 06/22/24 08/05/24 History albuterol sulfate 90 mcg/actuation 2 puff inhalation Q4HP PRN 06/25/24 08/05/24 Rx aerosol inhaler (Ventolin HFA) Shortness Of Breath Or Wheezing #8.5 grams furosemide 40 mg tablet 40 mg PO BID #60 tabs 07/17/24 08/05/24 Rx methocarbamol 500 mg tablet 500 mg PO HS #30 tabs 07/23/24 08/05/24 Rx ipratropium 0.5 mg-albuterol 3 mg 3 ml inhalation Q4HP PRN SOA 07/25/24 08/05/24 History (2.5 mg base)/3 mL nebulization soln potassium chloride 20 mEq 20 meq PO BID 07/25/24 08/05/24 History tablet,extended release insulin NPH-regular 70-30 U-100 0 unit SQ . 08/05/24 08/05/24 History insulin 100 unit/mL subcutaneous pen (Novolin 70-30 FlexPen U-100 Insulin) levothyroxine 25 mcg tablet 25 mcg PO DAILY 08/05/24 08/05/24 History New Prescriptions to Start Prescriptions: Allergies Allergy/AdvReac Type Severity Reaction Status Date / Time amoxicillin AdvReac Hives Verified 07/25/24 08:09 Penicillins AdvReac Hives Verified 07/25/24 08:09 Exam Data for Last 24 hours Vital signs and Labs for Last 24 Hours: Temp Pulse Resp BP Pulse Ox O2 Del Method 98.5 F 111 H 20 144/78 H 92 L Room Air 08/04/24 22:03 08/04/24 22:03 08/04/24 22:03 08/04/24 22:03 08/04/24 22:03 08/04/24 22:03 Laboratory Results - last 24 hr 08/04/24 21:57: WBC 14.3 H, RBC 3.65 L, Hgb 12.0 L, Hct 33.9 L, MCV 92.9, MCH 32.9 H, MCHC 35.4, RDW 14.7, Plt Count 129 L, MPV 10.1, Neut % (Auto) 69.4, Lymph % (Auto) 19.0, [place] % (Auto) 9.7 H, Eos % (Auto) 1.0, Baso % (Auto) 0.3, Neut # (Auto) 9.9 H, Lymph # (Auto) 2.7, [place] # (Auto) 1.4 H, Eos # (Auto) 0.2, Baso # (Auto) 0.1, PT 15.2 H, INR 1.40 H, Sodium 127 L, Potassium 2.3 L*, Chloride 88 L, Carbon Dioxide 34 H, Anion Gap 7.3, BUN 6 L, Creatinine 0.60 L, Estimated GFR 140, Est GFR ( Amer) 170, Glucose 134 H, Calcium 8.0 L, Magnesium 1.5 L, Total Bilirubin 3.8 H, AST 62 H, ALT 31, Alkaline Phosphatase 196 H, Total Protein 6.0 L, Albumin 3.0 L, Globulin 3.0, Albumin/Globulin Ratio 1.0 L, Lipase 295, Acetaminophen < 10 L, Plasma/Serum Alcohol < 10 I & O for Last 24 hours: Intake & Output 08/01/24 08/02/24 08/03/24 08/04/24 23:59 23:59 23:59 23:59 Output Total 3100 / 3100 Balance -3100 / -3100 Weight 90.718 kg Constitutional Constitutional: no acute distress *Routine HEENT Exam Head: Present normocephalic Eye: Present EOMI and PERRL ENT: Present mucous membranes moist *Routine Neck Exam Neck: Present supple; Absent lymphadenopathy *Routine Respiratory Exam Respiratory: Present CTA bilaterally *Routine Cardiovascular Exam Cardiovascular: Present RRR *Routine Abdominal Exam Abdominal: Present soft, normoactive bowel sounds, tenderness, distended and firm *Routine Rectal Exam Rectal:: deferred *Routine Genitalia Exam Genitalia:: deferred *Routine Extremities Exam Extremities: Absent cyanosis, clubbing or edema *Routine Skin Exam Skin: Present warm; Absent rash *Routine Neurological Exam Neurological: Present alert and oriented X3 Assessment and Plan *Assessment and plan (1) Decompensated hepatic cirrhosis: Status: Acute Category: Medical Code(s): K72.90 - Hepatic failure, unspecified without coma; K74.60 - Unspecified cirrhosis of liver (2) C. difficile diarrhea: Status: Acute Category: Medical Code(s): A04.72 - Enterocolitis due to Clostridium difficile, not specified as recurrent (3) Thrombocytopenia: Status: Acute Category: Medical Code(s): D69.6 - Thrombocytopenia, unspecified (4) Transaminitis: Status: Acute Category: Medical Code(s): R74.01 - Elevation of levels of liver transaminase levels (5) Hypomagnesemia: Status: Acute Category: Medical Code(s): E83.42 - Hypomagnesemia (6) Cirrhosis: Status: Acute Qualifiers: Hepatic cirrhosis type: alcoholic cirrhosis Ascites presence: with ascites Qualified Code(s): K70.31 - Alcoholic cirrhosis of liver with ascites Category: Medical Code(s): K74.60 - Unspecified cirrhosis of liver (7) Hypokalemia: Status: Acute Category: Medical Code(s): E87.6 - Hypokalemia (8) Hyponatremia: Status: Acute Category: Medical Code(s): E87.1 - Hypo-osmolality and hyponatremia (9) Ascites: Status: Acute Qualifiers: Ascites type: due to alcoholic cirrhosis Qualified Code(s): K70.31 - Alcoholic cirrhosis of liver with ascites Category: Medical Code(s): R18.8 - Other ascites (10) Smoking greater than 30 pack years: Status: Chronic Category: Social Hx Code(s): F17.210 - Nicotine dependence, cigarettes, uncomplicated (11) Dyspnea on exertion: Status: Acute Category: Medical Code(s): R06.09 - Other forms of dyspnea Plan * Alcoholic Cirrhosis with Ascites: Worsening abdominal distention and mild tenderness over 1 month, with ultrasound showing cirrhotic liver and small perihepatic ascites, low albumin (3.0 g/dL), elevated bilirubin (3.8 mg/dL), and INR 1.40, indicating decompensated cirrhosis. * Continue paracentesis as needed for symptomatic relief, monitoring for complications (e.g., bleeding, infection); send ascitic fluid for cell count, culture, and albumin to evaluate for spontaneous bacterial peritonitis (SBP). * Defer restarting furosemide until potassium is >3.5 mmol/L to avoid worsening hypokalemia, then restart furosemide dosage, initiate spironolactone 50 mg daily * Order abdominal ultrasound with Doppler to assess portal vein patency if ascites worsens. * Consult gastroenterology to establish care with new GI physician and evaluate for transplant candidacy. * Monitor for signs of encephalopathy (confusion, asterixis) every 8 hours. Consider lactulose * Shortness of Breath with Bibasilar Infiltrates/Atelectasis: Dyspnea over 1 month with chest X-ray showing bibasilar infiltrates versus atelectasis, likely exacerbated by ascites-related diaphragmatic compression and COPD. * Obtain arterial blood gas if hypoxia develops to assess oxygenation. * Administer albuterol-ipratropium nebulizer every 6 hours as needed for dyspnea or wheezing, given COPD history. * Elevate head of bed to 30 degrees to improve lung expansion. * Repeat chest X-ray in 24 hours to reassess infiltrates; consider CT chest if no improvement to rule out infection or malignancy. * Hyponatremia (Sodium 127 mmol/L): Significant hyponatremia, likely dilutional from cirrhosis and ascites, contributing to nausea and malaise. * Restrict free water intake to 1 L/day. * Administer normal saline at 50 mL/hour cautiously, monitoring for fluid overload given cirrhosis. * Recheck sodium every 6?8 hours, targeting correction <8 mmol/L per 24 hours to avoid osmotic demyelination. * Hold diuretics (spironolactone, furosemide) if sodium drops below 125 mmol/L. * Consult nephrology if no improvement within 24 hours. * Hypokalemia (Potassium 2.3 mmol/L): Critically low potassium, potentially contributing to weakness and arrhythmia risk, worsened by nausea and poor intake. * Initiate electrolyte replacement protocol * Monitor EKG for hypokalemia changes (e.g., U waves, QT prolongation) if potassium remains low. * Administer magnesium sulfate 2 g IV to support potassium repletion, given low magnesium (1.5 mg/dL). * Hypomagnesemia (Magnesium 1.5 mg/dL): Low magnesium, likely due to poor nutrition and cirrhosis, potentially exacerbating hypokalemia. * Continue magnesium sulfate 2 g IV every 8 hours until level >1.8 mg/dL. * Start magnesium oxide 400 mg oral twice daily for maintenance. * Recheck magnesium in 12 hours. * Mild Anemia and Thrombocytopenia: Hemoglobin 12.0 g/dL and platelets 129 x10?/?L, likely due to hypersplenism and bone marrow suppression in cirrhosis, with no active bleeding. * Observe without transfusion, given stability and no gastrointestinal bleeding. * Recheck complete blood count in 24 hours to monitor trends. * Leukocytosis (WBC 14.3 x10?/?L): Elevated white count with neutrophilia (9.9 x10?/?L), possibly reactive from cirrhosis-related inflammation or early infection (e.g., SBP). * Monitor for fever, abdominal pain, or altered mental status suggestive of SBP. * Await ascitic fluid analysis; start empiric ceftriaxone 2 g IV daily if cell count >250 PMNs/?L or culture positive. * Recheck WBC in 24 hours or sooner if signs of infection develop. * Alcohol Use Disorder (Last Drink 2 Weeks Ago): Recent cessation and seeking treatment, at risk for withdrawal or relapse in the setting of hospitalization. * Monitor for withdrawal symptoms (tremors, agitation) every 4 hours using CIWA-Ar scale. * Administer lorazepam 1 mg IV as needed for CIWA-Ar score >8, avoiding overuse due to cirrhosis. * Start thiamine 100 mg p.o. * Engage social work to support treatment access and follow-up. * Chronic Obstructive Pulmonary Disease (COPD): Known COPD with tobacco dependence, likely contributing to dyspnea alongside ascites and infiltrates. * Continue albuterol-ipratropium as above. * Offer nicotine replacement (e.g., 21 mg patch daily) to support tobacco cessation. * Educate patient on smoking cessation benefits, coordinating with addiction medicine. * Tobacco Dependence: Active smoker, exacerbating COPD and cirrhosis-related risks. * Initiate nicotine replacement therapy as above. * Provide smoking cessation counseling with nursing and social work support. * Refer to outpatient cessation program post-discharge. Additional Orders: * Admit to hospital medicine service for management of decompensated cirrhosis, ascites, and electrolyte abnormalities. * Maintain continuous pulse oximetry; continue telemetry * Offer acetaminophen 650 mg oral every 6 hours as needed for pain, avoiding NSAIDs. * Educate patient and family on cirrhosis, ascites management, and alcohol cessation.
[2024-08-04 23:32] LABS: HIV Combo NEGATIVE (Negative)
[2024-08-04 23:41] LABS: Hepatitis C Ab Qual. W/ RFX NEGATIVE (Negative)
--- NOTE | 2024-08-04 23:47 | PC.NURSE ---
report called to FROILAN RN at this time
[2024-08-05] VITALS (12 sets, daily range): BP systolic 102–151; BP diastolic 53–77; PULSE 75–115; RESP 17–21; TEMP 36.3–36.9; O2SAT 90–96; BMI 28.0
--- NOTE | 2024-08-05 00:07 | PC.NURSE ---
Patient arrived to floor via stretcher from ED at 00:04.
--- NOTE | 2024-08-05 00:32 | PC.NURSE ---
notified MD Morris of critical K+ @[phone]
[2024-08-05 00:42] LABS: Activated Partial Thrombo Time 30.9 seconds (22.8-30.6)
--- NOTE | 2024-08-05 00:48 | PC.NURSE ---
Jalen MON stated to keep the peritoneal drain (located in the right lower quadrant of the patient's abdomen) clamped at this time.
[2024-08-05 00:53] LABS: RBC,Body Fluid < 1000 cells/uL (< 10 X 10^3); TNC,Body Fluid 199 cells/uL (< 1000)
[2024-08-05] MEDS: NICOTINE 21MG/24HR PATCH 21 MG TD (01:00)
[2024-08-05] MEDS: KCl 10mEq/100ml 100 ML 100 MEQ IV ×2 (01:00→02:15)
[2024-08-05 01:06] LABS: Polynuclear WBC,Body Fluid 10 %
[2024-08-05 01:20] LABS: Mononuclear WBCs,Body Fluid 90 %
--- NOTE | 2024-08-05 01:53 | PC.NURSE ---
Jalen MON was notified about the patient's severe sepsis risk per screening at this time. No new orders obtained/given thus far.
--- NOTE | 2024-08-05 03:50 | PC.NURSE ---
Addendum entered by Leydi Negro RN 08/05/24 06:55: Urine sample was sent to lab at this time. Urine appearance was dark florencio in color, clear in transparency, with a slight odor. Patient ambulated to the bathroom independently without difficulties this morning; he did need some assistance getting up from the bed at first. Addendum entered by Leydi Negro RN 08/05/24 05:05: CIWA scale performed again for this morning. Score remains zero; patient continues to deny all withdrawal symptoms at this time. Patient remains resting without any apparent distress. Original Note: Mr Xu Davis was newly admitted on behalf of the documented diagnosis decompensating cirrhosis. Admission assessments and home medication reconciliation were completed by the charge nurse (Frank Hatch RN). Home medications are locked in the drawer (controlled medication Tramadol was counted for by Noemy Aguilar RN and Frank Hatch RN). He has had complaints of increasing swelling and aching in his bilateral lower extremities and abdomen, all worsening over the past month; he has also had complaints of worsening shortness of breath. This patient was placed on 2 L of oxygen via nasal cannula prior to arriving to the second floor, now maintained; oxygen saturations have remained in the low 90s. Paracentesis was performed in the ER; output documented accordingly. Peritoneal drain remains intact and clamped. Significant pitting edema (+ 4) was observed in both of his legs. SCDs ordered this shift and are in place. Abdomen is very distended and slightly soft upon palpation, appearance very large and round. He reports a herniation (visible when sitting upright) in the middle of his abdomen. Patient is ambulatory but reports having difficulty with walking due to all of the swelling. He has also had complaints of difficulty keeping a steady stream during urination. A urine sample remains uncollected thus far; urinal is at bedside for voiding needs. Patient reports having normal bowel movement consistencies (denies diarrhea at this time). Despite gradually worsening symptoms, his appetite has been good but he stated that he has only been able to eat very small portions. CIWA scoring was performed once this shift due to a noted history of long-term alcohol abuse; the patient's score was zero this shift, for he denied all withdrawal symptoms at this time. Patient has been resting with eyes closed, respirations even, and no apparent distress. Seizure pads are in place for precautions. Electrolyte replacement protocol ongoing; intravenous potassium (diluted with normal saline) was administered per MAR. A nicotine patch was applied to the right upper arm for cravings. ACHS glucose checks. Diminished lung sounds were heard upon auscultation; heart and bowel sounds were within normal findings. Normal sinus rhythm w/ ST depression noted on telemetry. At this time, the patient is resting in bed without any further complaints. No new needs at this time. Bed alarm on. Call light within reach.
[2024-08-05 06:28] LABS: POC Glucose,Bedside 135 (70-110)
[2024-08-05] MEDS: IPRATROPIUM/ALBUTEROL 3 ML NEB IH (06:57)
[2024-08-05 08:03] LABS: Basophils % 0.4 % (0.1-2.0); Eosinophils # 0.2 K/mm3 (0.0-0.4); Eosinophils % 1.3 % (0.1-12.0); Hematocrit 32.8 % (42.0-52.0); Hemoglobin 11.6 g/dL (14.1-18.0); Lymphocytes # 2.4 K/mm3 (0.7-4.5); Lymphocytes % 21.4 % (10-50); Mean Corpuscular HGB Conc 35.4 g/dL (31.8-35.4); Mean Corpuscular Hemoglobin 32.8 pg (27.0-31.2); Mean Corpuscular Volume 92.7 fl (80-94); Mean Platelet Volume 10.6 fl (7.4-10.4); Monocytes # 0.9 K/mm3 (0.1-1.0); Neutrophils # 7.8 K/mm3 (1.8-7.8); Neutrophils % 68.4 % (37.0-80.0); Nucleated Red Blood Cells # 0 10^3/uL; Nucleated Red Blood Cells % 0 %; Platelet Count 119 K/mm3 (142-424); Red Blood Count 3.54 M/mm3 (4.60-6.20); Red Cell Distribution Width 14.8 % (11.5-17.5); Red Cell Distribution Width-SD 50.4 fL; White Blood Count 11.4 K/mm3 (4.8-10.8)
--- NOTE | 2024-08-05 08:04 | HMH.PHAINT1 ---
Pharmacy Intervention Comments: MEDICATION RECONCILIATION COMPLETED ON PATIENT USING EXTERNAL FILL HISTORY FROM PHARMACY AND LIST FROM PCP OFFICE. -SHARYN COPPOLA, VIRGILD
[2024-08-05 08:15] LABS: Albumin Level 2.7 g/dl (3.5-5.0); Chloride 88 mmol/L (98-107); Sodium 127 mmol/L (136-145)
[2024-08-05 08:17] LABS: Potassium 2.4 mmoL/L (3.5-5.1)
[2024-08-05 08:18] LABS: Alanine Aminotransferase 27 U/L (12-78); Alkaline Phosphatase 159 U/L (38-126); Anion Gap 8.4 mEq/L (5-15); Aspartate Amino Transferase 56 U/L (17-59); Bilirubin,Total 4.4 mg/dl (0.2-1.3); Blood Urea Nitrogen 6 mg/dl (9-20); Calcium 7.8 mg/dl (8.4-10.2); Carbon Dioxide 33 mmol/L (22.0-30.0); Creatinine Clearance Estimated 212 mL/min (50-200); Estimated Glomerular Filt Rate 173 ml/min (>60); GFR (African American) 210 ML/MIN (>60); Globulin 2.8 g/dL (1.3-3.2); Glucose 122 mg/dl (74-100); Phosphorous 3.1 mg/dl (2.5-4.5); Total Protein,Serum 5.5 g/dl (6.3-8.2)
[2024-08-05 08:19] LABS: Magnesium 1.9 mg/dl (1.6-2.3)
--- NOTE | 2024-08-05 08:26 | PC.NURSE ---
made aware of critical potassium value and stated to no move forward with electrolyte replacement protocol and he will order daily potassium for pt
[2024-08-05] MEDS: THIAMINE 100MG TABLET 100 MG PO (09:01)
[2024-08-05] MEDS: MAGNESIUM OXIDE 400MG TABLET 400 MG PO (09:01)
[2024-08-05] MEDS: FOLIC ACID 1MG TABLET 1 MG PO (09:01)
[2024-08-05] MEDS: METOPROLOL SUCCINATE XL 25MG TABLET 25 MG PO (09:01)
[2024-08-05] MEDS: FUROSEMIDE 100MG/10ML VIAL 80 MG IV ×2 (09:01→16:38)
[2024-08-05] MEDS: SPIRONOLACTONE 25MG TABLET 100 MG PO (09:01)
[2024-08-05] MEDS: POTASSIUM CHLORIDE 20MEQ TAB 60 MEQ PO (09:02)
[2024-08-05 09:40] LABS: Microscopic, Urine URINE MICROSCOPIC (MICROSCOPIC)
[2024-08-05 10:46] LABS: Appearance,Urine CLEAR (Clear); Bilirubin,Urine Negative (Negative); Blood, Urine Negative (Negative); Color,Urine YELLOW (Yellow); Glucose,Urine (UA) Negative (Negative); Ketones,Urine Negative (Negative); Leukocyte Esterase,Urine Negative (Negative); Nitrate,Urine Negative (Negative); Protein,Urine Negative (Negative); Specific Gravity, Urine 1.025 (1.005-1.030); Urobilinogen,Urine 0.2 EU/dl (0.2)
[2024-08-05 11:14] LABS: Squamous Epithelial Cell,Urine Occasional #/hpf (0-5)
[2024-08-05 11:32] LABS: POC Glucose,Bedside 204 (70-110)
--- NOTE | 2024-08-05 12:14 | HMH.PTEV ---
Physical Therapy Evaluation Rehab PT IP Evaluation Start: 08/05/24 01:52 Freq: ONCE Status: Active Protocol: Document 08/05/24 12:09 JOHANAILIANA (Rec: 08/05/24 12:14 JOHANAALAYNABELEN [id number]) Subjective/History History History Per H&P, A 45-year-old male with a history of alcoholic cirrhosis, tobacco dependence, chronic obstructive pulmonary disease (COPD), and recent alcohol cessation (last drink 2 weeks ago) presents to the emergency department for evaluation of abdominal distention, pain, and shortness of breath. The patient reports these symptoms began gradually over the past month, are constant, and have worsened, with associated nausea but no fevers or chills . He denies chest pain. He notes a prior admission for similar symptoms with electrolyte abnormalities. He is currently seeking a new gastroenterology physician and treatment for alcoholism. He was previously treated in the month of June for C. difficile colitis. He states he finished prescribed antibiotics and he has no return of diarrhea. The history was obtained directly from the patient during my personal history and physical exam. Subjective Subjective Pt is alert and oriented x3. Pt reports that prior to his hospitalization, he would frequently use a cane for mobility. 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 The pt reports that he has difficulty putting his pants/depends on but is able to do it most of the time. Pt reports that he has some family members helping care for his niece presently. New diagnosis of cancer in past 12 No months? [facility] How much help from another person do you currently need... Turning from your back to your side None while in a flat bed without using bedrails? Moving from lying on back to sitting on None the side of a flat bed without using bedrails? Moving to and from a bed to a chair ( None including a wheelchair)? Standing up from a chair using your arms None ? (e.g., wheelchair, bedside chair) Walking in hospital room? A little Climbing 3-5 steps with a railing? A little Mobility Score 22 Mobility Level [facility] Mobility Calculator Mobility 7 Walk 25 feet or more Rehab PT IP Eval Objective Appearance Patient Behavior Appropriate Patient Orientation Person,Place,Time Difficulty following instructions none Speech Pattern Patient Baseline Ambulation Patient Able to Ambulate Yes Ambulation Observation IP General Gait Pattern Observation No Deviations/Normal Ambulation Distance (feet) 40 Ambulation Assistive Device None Ambulation Ability Contact Guard/Hand Hold Balance Ability to Arise Able, uses arms to help Sitting Balance Steady, safe Standing Balance Narrow stance w/o support Dynamic Sitting Balance Ability Normal Dynamic Standing Balance Ability Good Transfers Bed Transfer Ability Independent Chair Transfer Ability Supervision/Stand by Sit to Stand Bed Transfer Ability Supervision/Stand by Sit to Stand Chair Transfer Ability Contact Guard/Hand Hold Rehab PT IP prob,goals,plan Problems Date of Evaluation: 08/05/24 PT IP Problems Bed Mobility,Transfers,Gait, Balance,Self care,Safety Rehab Potential Rehab Potential Good Equipment Needs Assistive Devices None / NA Plan PT Intervention Plan Bed Mobility,Transfers,Gait, Balance,Self care,Safety, Therapeutic Exercise PT Plan Frequency BID Duration LOS Discharge Goals Bed Transfer Ability Independent Sit to Stand Chair Transfer Ability Independent Ambulation Assistive Device None Ambulation Distance (feet) 150 Discharge Plan PT Discharge Plan PT is recommending discharge to home when deemed medically stable. Skilled PT is recommended during his acute stay to promote a return to his PLOF and to prepare patient for a safe discharge to home. Eval Complexity Eval Charge Codes 56726 - Moderate Complexity PHYSICIAN CERTIFICATION: I certify the specified therapy services for Xu Davis are required, authorized, and reviewed every 30 days.
[2024-08-05] MEDS: MULTIVITAMIN TABLET 1 EACH PO (16:50)
--- NOTE | 2024-08-05 17:00 | P.PN_ITS ---
Subjective *Date: 08/05/24 *Time: 17:00 Interval history: Patient feels quite uncomfortable with abdominal distention, drain another 900 mL paracentesis as albumin stable at 2.7. Started aggressive IV Lasix diuresis, spironolactone. Repeat albumin in the morning, plan for further paracentesis. Exam Data for Last 24 hours Vital signs and Labs for Last 24 Hours: Temp Pulse Resp BP Pulse Ox O2 Del Method O2 Flow Rate 98.4 F 90 17 117/53 L 96 Nasal Cannula 1.5 08/05/24 12:07 08/05/24 16:00 08/05/24 12:07 08/05/24 12:07 08/05/24 12:07 08/05/24 15:15 08/05/24 15:15 Laboratory Results - last 24 hr 08/04/24 00:20: APTT 30.9 H 08/04/24 21:57: WBC 14.3 H, RBC 3.65 L, Hgb 12.0 L, Hct 33.9 L, MCV 92.9, MCH 32.9 H, MCHC 35.4, RDW 14.7, Plt Count 129 L, MPV 10.1, Neut % (Auto) 69.4, Lymph % (Auto) 19.0, [place] % (Auto) 9.7 H, Eos % (Auto) 1.0, Baso % (Auto) 0.3, Neut # (Auto) 9.9 H, Lymph # (Auto) 2.7, [place] # (Auto) 1.4 H, Eos # (Auto) 0.2, Baso # (Auto) 0.1, PT 15.2 H, INR 1.40 H, Sodium 127 L, Potassium 2.3 L*, Chloride 88 L, Carbon Dioxide 34 H, Anion Gap 7.3, BUN 6 L, Creatinine 0.60 L, Estimated GFR 140, Est GFR ( Amer) 170, Glucose 134 H, Calcium 8.0 L, Magnesium 1.5 L, Total Bilirubin 3.8 H, AST 62 H, ALT 31, Alkaline Phosphatase 196 H, Total Protein 6.0 L, Albumin 3.0 L, Globulin 3.0, Albumin/Globulin Ratio 1.0 L, Lipase 295, Acetaminophen < 10 L, Plasma/Serum Alcohol < 10, HCV Ab ROXY w/Rflx PCR Qn Negative, HIV Ag/Ab Combo Qual Negative 08/04/24 22:55: Fluid Source Peritoneal fluid, Fluid Volume 21, Fluid Appearance Normal, Fluid RBC (Auto) < 1000, Fld Tot Nucleated Cell 199, Fld Polynuclear WBCs % 10, Fld Mononuclear WBCs % 90 08/05/24 06:21: POC Glucose 135 H 08/05/24 06:35: WBC 11.4 H, RBC 3.54 L, Hgb 11.6 L, Hct 32.8 L, MCV 92.7, MCH 32.8 H, MCHC 35.4, RDW 14.8, Plt Count 119 L, MPV 10.6 H, Neut % (Auto) 68.4, Lymph % (Auto) 21.4, [place] % (Auto) 8.0, Eos % (Auto) 1.3, Baso % (Auto) 0.4, Neut # (Auto) 7.8, Lymph # (Auto) 2.4, [place] # (Auto) 0.9, Eos # (Auto) 0.2, Baso # (Auto) 0.0, Sodium 127 L, Potassium 2.4 L*, Chloride 88 L, Carbon Dioxide 33 H , Anion Gap 8.4, BUN 6 L, Creatinine 0.50 L, Estimated Creat Clear 212, Estimated GFR 173, Est GFR ( Amer) 210 D, Glucose 122 H, Calcium 7.8 L, Phosphorus 3.1, Magnesium 1.9 D, Total Bilirubin 4.4 H, AST 56, ALT 27, Alkaline Phosphatase 159 H, Total Protein 5.5 L, Albumin 2.7 L, Globulin 2.8, Albumin/Globulin Ratio 1.0 L 08/05/24 09:35: Urine Color Yellow, Urine Appearance Clear, Urine pH 6.0, Ur Specific [place] 1.025, Urine Protein Negative, Urine Glucose (UA) Negative, Urine Ketones Negative, Urine Blood Negative, Urine Nitrate Negative, Urine Bilirubin Negative, Urine Urobilinogen 0.2, Ur Leukocyte Esterase Negative, Urine RBC None, Urine WBC None, Ur Squamous Epith Cells Occasional 08/05/24 11:19: POC Glucose 204 H I & O for Last 24 hours: Intake & Output 08/02/24 08/03/24 08/04/24 08/05/24 23:59 23:59 23:59 23:59 Intake Total 1030 / 1030 Output Total 3100 / 3100 2074 / 2074 Balance -3100 / -2850 -1045 / -1045 Weight 90.718 kg 88.67 kg Microbiology Reports for the Last 24 Hours: Microbiology 08/04/24 22:55 Peritoneal Fluid Gram Stain - Final Constitutional Constitutional: no acute distress Comments: Anasarca *Routine HEENT Exam Head: Present normocephalic Eye: Present EOMI and PERRL ENT: Present mucous membranes moist *Routine Neck Exam Neck: Present supple; Absent lymphadenopathy *Routine Respiratory Exam Respiratory: Present CTA bilaterally *Routine Cardiovascular Exam Cardiovascular: Present RRR *Routine Abdominal Exam Abdominal: Present soft, normoactive bowel sounds, tenderness and distended *Routine Extremities Exam Extremities: Present edema; Absent cyanosis or clubbing Comments: Lower extremity 4+ pitting edema *Routine Skin Exam Skin: Present warm; Absent rash *Routine Neurological Exam Neurological: Present alert and oriented X3 Assessment and Plan *Assessment and plan (1) Decompensated hepatic cirrhosis: Status: Acute Category: Medical Code(s): K72.90 - Hepatic failure, unspecified without coma; K74.60 - Unspecified cirrhosis of liver (2) C. difficile diarrhea: Status: Acute Category: Medical Code(s): A04.72 - Enterocolitis due to Clostridium difficile, not specified as recurrent (3) Thrombocytopenia: Status: Acute Category: Medical Code(s): D69.6 - Thrombocytopenia, unspecified (4) Transaminitis: Status: Acute Category: Medical Code(s): R74.01 - Elevation of levels of liver transaminase levels (5) Hypomagnesemia: Status: Acute Category: Medical Code(s): E83.42 - Hypomagnesemia (6) Cirrhosis: Status: Acute Qualifiers: Hepatic cirrhosis type: alcoholic cirrhosis Ascites presence: with ascites Qualified Code(s): K70.31 - Alcoholic cirrhosis of liver with ascites Category: Medical Code(s): K74.60 - Unspecified cirrhosis of liver (7) Hypokalemia: Status: Acute Category: Medical Code(s): E87.6 - Hypokalemia (8) Hyponatremia: Status: Acute Category: Medical Code(s): E87.1 - Hypo-osmolality and hyponatremia (9) Ascites: Status: Acute Qualifiers: Ascites type: due to alcoholic cirrhosis Qualified Code(s): K70.31 - Alcoholic cirrhosis of liver with ascites Category: Medical Code(s): R18.8 - Other ascites (10) Smoking greater than 30 pack years: Status: Chronic Category: Social Hx Code(s): F17.210 - Nicotine dependence, cigarettes, uncomplicated (11) Dyspnea on exertion: Status: Acute Category: Medical Code(s): R06.09 - Other forms of dyspnea Plan Charlie Davis is a 54-year-old male with a medical history significant for alcoholic cirrhosis presented with worsening abdominal distention and was admitted for decompensated cirrhosis. #Decompensated alcoholic cirrhosis #Pulmonary edema #Significant ascites #Anasarca ? Patient states he ran out of his Lasix a few weeks ago and has not refilled it, followed up with his PCP. ? Gross signs of volume overload with anasarca and significant abdominal study/distention. Requiring 1.5 L nasal cannula. ? MELD score 24, ~15% 90-day mortality rate. Has quit drinking alcohol recently. ? S/p paracentesis in the ED with 3.1 L serous output. Negative for SBP. ? Drained another 900 mL today as albumin stable 2.7. Follow-up repeat albumin tomorrow morning, plan to drain more tomorrow. May need albumin. ? Started IV Lasix 80 mg twice daily, spironolactone 100 mg. ? Follow-up AFP. Hepatitis C negative. ? Fluid restriction 1200 L. #Hyponatremia #Hypokalemia #Hypomagnesemia ? Sodium 127, potassium 2.4, magnesium 1.5. ? Replating potassium, magnesium with IV. Follow-up repeat potassium today. ? Continuous cardiac telemetry. #COPD #Current tobacco user ? Continue home Anoro Ellipta, DuoNebs/albuterol as needed. Patient prefers albuterol. DNR/DNI DVT prophylaxis: Lovenox 40 mg
[2024-08-05] MEDS: ALBUTEROL-HFA 90MCG/PUFF INHALER 8GM 2 PUFF IH ×2 (17:08→22:29)
--- NOTE | 2024-08-05 17:12 | PC.NURSE ---
Pt has done well this shift. An additional 900mls was drained from the peritoneal drain. Pt stated that he did not have much relief. stated that we would check albumin level in the AM and try to drain more tomorrow. VSS. Drain dressing is C/D/I and clamped.
[2024-08-05 17:28] LABS: Chloride 89 mmol/L (98-107); Sodium 133 mmol/L (136-145)
[2024-08-05 17:31] LABS: Blood Urea Nitrogen 7 mg/dl (9-20); Calcium 8.4 mg/dl (8.4-10.2); Carbon Dioxide 34 mmol/L (22.0-30.0); Creatinine Clearance Estimated 177 mL/min (50-200); Estimated Glomerular Filt Rate 140 ml/min (>60); GFR (African American) 170 ML/MIN (>60); Glucose 164 mg/dl (74-100)
[2024-08-05] MEDS: POTASSIUM CHLORIDE 20MEQ TAB 40 MEQ PO ×2 (17:50→21:53)
[2024-08-05] MEDS: PANTOPRAZOLE 40MG TABLET 40 MG PO (21:53)
[2024-08-05] MEDS: hydrOXYzine pamoate 25MG CAPSULE 25 MG PO (22:25)
[2024-08-05] MEDS: TRAMADOL 50MG TABLET 50 MG PO (22:25)
--- NOTE | 2024-08-05 23:30 | PC.NURSE ---
Patient's peritoneal drain started to leak around the dressing and the tubing during this shift. Peritoneal drainage appearance is yellow in color, clear in transparency, and without odor. Charge nurse (Frank Hatch RN), Milind Nolasco RN, and I were at the bedside to assess the patient. Jalen MON was paged to come to the bedside to assess the peritoneal drain site. Upon assessment, he stated that the fluid is likely leaking from the site due to the distention and pressure. The dressing was carefully changed by me around the site, using aseptic technique. Tubing was noticed to not be stitched in. Folded sterile 4x4 gauze pads were packed around the site; an ABD pad was placed over the gauze pads; and 2 tegaderm strips were used to secure it entirely. Jalen MON verbally allowed 1000 mL of fluid to be drained into the bag tonight (emptied and documented accordingly). After drainage of 1 L, the patient stated that he continues to feel no difference or relief in his abdomen at this time. However, the patient tolerated the dressing change and fluid drainage procedures well. Peritoneal drain re-clamped off.
[2024-08-06] VITALS (8 sets, daily range): BP systolic 97–125; BP diastolic 45–62; PULSE 65–100; RESP 14–18; TEMP 36.7–37.2; O2SAT 92–97; BMI 28.0
[2024-08-06] MEDS: NICOTINE 21MG/24HR PATCH 21 MG TD (00:10)
[2024-08-06 00:19] LABS: Basophils % 0.3 % (0.1-2.0); Eosinophils # 0.2 K/mm3 (0.0-0.4); Eosinophils % 1.8 % (0.1-12.0); Hematocrit 33.3 % (42.0-52.0); Hemoglobin 11.5 g/dL (14.1-18.0); Lymphocytes # 2.5 K/mm3 (0.7-4.5); Lymphocytes % 23.4 % (10-50); Mean Corpuscular HGB Conc 34.5 g/dL (31.8-35.4); Mean Corpuscular Hemoglobin 32.3 pg (27.0-31.2); Mean Corpuscular Volume 93.5 fl (80-94); Mean Platelet Volume 10.4 fl (7.4-10.4); Monocytes # 1.1 K/mm3 (0.1-1.0); Monocytes % 10.2 % (1.7-9.3); Neutrophils # 6.9 K/mm3 (1.8-7.8); Neutrophils % 63.8 % (37.0-80.0); Nucleated Red Blood Cells # 0 10^3/uL; Nucleated Red Blood Cells % 0 %; Platelet Count 115 K/mm3 (142-424); Red Blood Count 3.56 M/mm3 (4.60-6.20); Red Cell Distribution Width 14.9 % (11.5-17.5); Red Cell Distribution Width-SD 51.5 fL; White Blood Count 10.8 K/mm3 (4.8-10.8)
[2024-08-06 00:25] LABS: Anion Gap 9.9 mEq/L (5-15); Blood Urea Nitrogen 7 mg/dl (9-20); Carbon Dioxide 32 mmol/L (22.0-30.0); Chloride 90 mmol/L (98-107); Creatinine Clearance Estimated 177 mL/min (50-200); Estimated Glomerular Filt Rate 140 ml/min (>60); GFR (African American) 170 ML/MIN (>60); Glucose 169 mg/dl (74-100); Sodium 129 mmol/L (136-145)
[2024-08-06 00:26] LABS: Potassium 2.9 mmoL/L (3.5-5.1)
--- NOTE | 2024-08-06 01:40 | PC.NURSE ---
Jalen MON was notified [id number] about the patient's critical potassium value of 2.9. Electrolyte replacement protocol ongoing.
[2024-08-06] MEDS: POTASSIUM CHLORIDE 20MEQ TAB 20 MEQ PO (01:47)
--- NOTE | 2024-08-06 03:47 | PC.NURSE ---
Addendum entered by Leydi Negro RN 08/06/24 05:41: Patient's glucose level at 05:39 was 205. Patient stated that he would like to hold off on insulin coverage for right now and check his glucose again later. Original Note: Patient is alert and oriented x4. He was observed to have wakeful periods and resting periods (eyes closed, respirations even/unlabored) throughout the night. He stated that he feels like his mobility/ambulation has improved since initiation of aggressive diuresis, which has helped with the swelling in his legs (+ 3 edema); he has been ambulating independently in his room/to the bathroom with minimal to no difficulty. SCDs were removed. However, he continues to report discomfort, aches, and tightness in his abdomen. Abdomen is still very large and distended. Peritoneal drain remains clamped and without any more leakage thus far (see prior note). He continues to use the urinal for voiding needs. Urine stream has been more steady. Fluid restriction was decreased to 1200 mL after midnight (started on 1500 mL restriction yesterday); patient verbalized understanding of this. Intake/output documented as appropriately. Electrolyte protocol ongoing. Patient refused some aspects of his care this shift: trazodone, insulin ( glucose < 250, did not want to take ), aerochamber kit, and seizure pad placement. Patient stated that he prefers albuterol and did not want Ellipta. He also requested to use oxygen via nasal cannula as supplemental; oxygen saturations have remained > 90% whenever on room air. CIWA scale was performed once this shift, and the patient scored a zero. He denied all withdrawal symptoms except for some feelings of anxiety this time. No apparent distress. He requested to have his home medications, hydroxyzine (for anxiety) and tramadol (for moderate back pain), to be restarted. These were obtained/given per MAR with satisfactory outcome. Yellow sclera still noted. Scheduled medications administered per MAR. A new nicotine patch was applied to the left upper arm. Auscultation of heart and bowels remain within normal findings; lung sounds remain diminished. Chicken salad sandwich and crackers were given as a bedtime snack. Soft blood pressures. Normal sinus rhythm on telemetry. ACHS glucose checks. At this time, the patient is resting in bed without any further complaints. No new needs thus far. Call light within reach.
[2024-08-06 05:56] LABS: POC Glucose,Bedside 205 (70-110)
[2024-08-06 06:37] LABS: Basophils % 0.3 % (0.1-2.0); Eosinophils # 0.1 K/mm3 (0.0-0.4); Eosinophils % 1.4 % (0.1-12.0); Hematocrit 31.5 % (42.0-52.0); Hemoglobin 10.9 g/dL (14.1-18.0); Lymphocytes # 2.3 K/mm3 (0.7-4.5); Lymphocytes % 23.9 % (10-50); Mean Corpuscular HGB Conc 34.6 g/dL (31.8-35.4); Mean Corpuscular Hemoglobin 32.2 pg (27.0-31.2); Mean Corpuscular Volume 92.9 fl (80-94); Mean Platelet Volume 10.6 fl (7.4-10.4); Monocytes % 10.7 % (1.7-9.3); Neutrophils % 63.4 % (37.0-80.0); Nucleated Red Blood Cells # 0 10^3/uL; Nucleated Red Blood Cells % 0 %; Platelet Count 111 K/mm3 (142-424); Red Blood Count 3.39 M/mm3 (4.60-6.20); Red Cell Distribution Width-SD 50.8 fL; White Blood Count 9.4 K/mm3 (4.8-10.8)
[2024-08-06] MEDS: ALBUTEROL-HFA 90MCG/PUFF INHALER 8GM 2 PUFF IH (06:38)
[2024-08-06 07:06] LABS: Albumin Level 2.5 g/dl (3.5-5.0); Chloride 93 mmol/L (98-107); Sodium 128 mmol/L (136-145)
[2024-08-06 07:09] LABS: Alanine Aminotransferase 26 U/L (12-78); Alkaline Phosphatase 183 U/L (38-126); Aspartate Amino Transferase 57 U/L (17-59); Bilirubin,Total 2.6 mg/dl (0.2-1.3); Blood Urea Nitrogen 7 mg/dl (9-20); Carbon Dioxide 29 mmol/L (22.0-30.0); Creatinine Clearance Estimated 212 mL/min (50-200); Estimated Glomerular Filt Rate 173 ml/min (>60); GFR (African American) 210 ML/MIN (>60); Globulin 2.6 g/dL (1.3-3.2); Total Protein,Serum 5.1 g/dl (6.3-8.2)
[2024-08-06 07:10] LABS: Calcium 7.6 mg/dl (8.4-10.2); Glucose 200 mg/dl (74-100); Magnesium 1.8 mg/dl (1.6-2.3)
[2024-08-06 07:18] LABS: Free T4 (Free Thyroxine) 1.54 ng/dl (0.78-2.19)
[2024-08-06 07:23] LABS: Thyroid Stimulating Hormone 2.83 uIU/mL (0.465-4.68)
[2024-08-06] MEDS: LEVOTHYROXINE 25MCG (0.025MG) TAB 25 MCG PO (09:06)
[2024-08-06] MEDS: MAGNESIUM OXIDE 400MG TABLET 400 MG PO (09:06)
[2024-08-06] MEDS: SPIRONOLACTONE 25MG TABLET 100 MG PO (09:07)
[2024-08-06] MEDS: METOPROLOL SUCCINATE XL 25MG TABLET 25 MG PO (09:08)
[2024-08-06] MEDS: THIAMINE 100MG TABLET 100 MG PO (09:08)
[2024-08-06] MEDS: FUROSEMIDE 100MG/10ML VIAL 80 MG IV ×2 (09:08→16:17)
[2024-08-06] MEDS: FOLIC ACID 1MG TABLET 1 MG PO (09:08)
[2024-08-06] MEDS: ENOXAPARIN 40MG/0.4ML SYRINGE 40 MG SUBCUT (09:09)
[2024-08-06] MEDS: POTASSIUM CHLORIDE 20MEQ TAB 40 MEQ PO ×5 (09:09→21:51)
[2024-08-06] MEDS: ALBUMIN HUMAN 25 GM/100 ML BAG IV (09:18)
[2024-08-06 12:05] LABS: POC Glucose,Bedside 192 (70-110)
[2024-08-06 12:21] LABS: Albumin Level 3.2 g/dl (3.5-5.0); Chloride 94 mmol/L (98-107); Potassium 3.1 mmoL/L (3.5-5.1); Sodium 132 mmol/L (136-145)
[2024-08-06 12:24] LABS: Alanine Aminotransferase 29 U/L (12-78); Albumin/Globulin Ratio 1.1 (1.1-1.8); Alkaline Phosphatase 163 U/L (38-126); Anion Gap 9.1 mEq/L (5-15); Aspartate Amino Transferase 68 U/L (17-59); Bilirubin,Total 3.5 mg/dl (0.2-1.3); Blood Urea Nitrogen 7 mg/dl (9-20); Carbon Dioxide 32 mmol/L (22.0-30.0); Creatinine Clearance Estimated 212 mL/min (50-200); Estimated Glomerular Filt Rate 173 ml/min (>60); GFR (African American) 210 ML/MIN (>60); Globulin 2.9 g/dL (1.3-3.2); Total Protein,Serum 6.1 g/dl (6.3-8.2)
[2024-08-06 12:25] LABS: Glucose 169 mg/dl (74-100)
--- NOTE | 2024-08-06 13:27 | P.CONS_ITS ---
History of Present Illness *Admission Date: 08/04/24 *History of present illness: A 45-year-old male with a history of alcoholic cirrhosis, tobacco dependence, chronic obstructive pulmonary disease (COPD), and recent alcohol cessation (last drink 2 weeks ago) presents to the emergency department for evaluation of abdominal distention, pain, and shortness of breath. The patient reports these symptoms began gradually over the past month, are constant, and have worsened, with associated nausea but no fevers or chills. He denies chest pain. He notes a prior admission for similar symptoms with electrolyte abnormalities. He is currently seeking a new gastroenterology physician and treatment for alcoholism. He was previously treated in the month of June for C. difficile colitis. He states he finished prescribed antibiotics and he has no return of diarrhea. The history was obtained directly from the patient during my personal history and physical exam. On examination, the patient is hemodynamically stable, alert, and oriented, Physical exam reveals a distended abdomen with mild tenderness on palpation, no rebound or guarding, and no organomegaly. Lungs show bilateral basilar crackles, likely related to low lung volumes or infiltrates, consistent with COPD and possible atelectasis. Cardiac exam is unremarkable, with no murmurs or jugular venous distension. No lower extremity edema is noted. Diagnostic workup includes labs showing leukocytosis (WBC 14.3 x10?/?L), mild anemia (hemoglobin 12.0 g/dL, hematocrit 33.9%), thrombocytopenia (platelets 129 x10?/?L), hyponatremia (sodium 127 mmol/L), hypokalemia (potassium 2.3 mmol/L), hypochloremia (chloride 88 mmol/L), elevated CO2 (34 mmol/L), low creatinine (0.60 mg/dL), and elevated glucose (134 mg/dL). Liver function tests reveal elevated total bilirubin (3.8 mg/dL), AST (62 U/L), alkaline phosphatase (196 U/L), low albumin (3.0 g/dL), and low total protein (6.0 g/dL), consistent with cirrhosis. Coagulation studies show prolonged PT (15.2 seconds) and INR (1.40). Magnesium is low (1.5 mg/dL), and lipase is normal (295 U/L). Right upper quadrant ultrasound demonstrates a cirrhotic liver with nodular contour, small perihepatic ascites, and nonspecific gallbladder wall thickening (6 mm) without gallstones. Chest X-ray shows bibasilar infiltrates versus atelectasis, with no pleural effusion or cardiomegaly. Treatments implemented in the emergency department include a paracentesis with removal of 3 L of ascitic fluid, with the catheter left in place for potential further drainage. No additional medications or fluids are noted as initiated in the ED. The patient was evaluated for admission due to ongoing symptoms, electrolyte abnormalities, and underlying cirrhosis. Per admission H & P - ----- This is a 54-year-old male with history of alcoholic cirrhosis. He reports he was diagnosed with cirrhosis in November for the first time. He was hospitalized with ascites and transferred to . It appears he underwent panendoscopy with possible varices banding. He denies ever having seen gastroenterology before. He denies seeing gastroenterology as an outpatient at . He never did follow- up at after the procedure. He reports he does not want to continue following at . He was referred to [facility] by his primary care but has not contacted their GI practice to schedule an appointment yet. He reports he would prefer to follow with [facility]. Patient currently has a bilirubin of 3.8, AST of 62, ALT of 31 and alk phos of 196. He has a 30+ year history of daily excessive alcohol consumption. He reports sobriety for the past 3 weeks. Alcohol level upon admission to the ER was less than 10. Viral hepatitis testing last month was all negative. Lipase within normal limits. Over the past couple of years patient has had persistently elevated liver enzymes, usually AST and alk phos, but bilirubin began to elevate in August 2023. He has struggled with low sodium, currently 127, MELD score currently equal to 22 points, was 23 points upon admission. Patient reports he has been on furosemide and spironolactone at home and has had worsening ascites and 4+ bilateral lower extremity pitting edema this been getting progressively worse at home. He was drinking excessive alcohol daily up until 3 weeks ago per report. Patient denies symptoms of withdrawal at this point. Denies any symptoms of hepatic encephalopathy at home or currently. Significant abdominal discomfort all over and extremely distended with ascites. Drain in place right mid abdominal wall. [facility] Disclaimer: The information contained in this section may have been updated after the patient was seen, as this information can be updated by other users. Medical History Colon polyps Hyponatremia LEANNA on CPAP Degenerative disc disease Encounter for screening for malignant neoplasm of lung Smoking greater than 30 pack years Dyspnea on exertion Sleep apnea COPD (chronic obstructive pulmonary disease) Back pain Diarrhea Hypothyroidism Ganglion cyst Alcohol abuse Steatohepatitis, alcoholic Sleep disturbance Inconclusive HSAT on 07/21/2022. Total recording time 4 hours, AHI 1, RDI 2, loud snoring and increased sleep related arousals were recorded during 38% of total sleep time. Patient was unable to sleep well throughout the night and results are not consistent with reorted sleep pattern. Snoring Has daytime drowsiness Neck pain Scoliosis (and kyphoscoliosis), idiopathic Degenerative disc disease, lumbar Tobacco abuse Advised to consider smoking cessation. COPD (chronic obstructive pulmonary disease) with acute bronchitis Hepatomegaly Type 2 diabetes mellitus without complications Elevated BP without diagnosis of hypertension Will request recent records, labs, consult notes. Abdominal wall pain Discussed with patient DDx: ventral abdominal hernia vs diastasis recti. Will request recent imaging. Diabetes Surgical History History of elbow surgery History of hernia surgery Family History Other Cancer Social History (Updated 08/05/24 @ 00:56 by Elva Hatch RN) Smoking Status: Current every day smoker alcohol intake: current alcohol intake frequency: 3 or more drinks per day substance use type: denies use current occupational status: unemployed Travel in the last 8 weeks: None household members: significant other housing: house marital status: Have you lived/traveled outside [place] in past 30 days?: No Contact w/someone who lives/traveled outside US past 30 days?: No Exposure to someone with infectious disease in past 14 days?: No Do you have a fever (greater than 100.4 F or 38 C)?: No Have you tested positive for COVID-19: No Exposed to someone with COVID-19 in past 14 days?: No Do you have a sore throat?: No Do you have a cough?: No Do you have any weakness?: No Are you experiencing any nausea/vomitting?: No Do you have any diarrhea?: No Are you experiencing any unusual bleeding?: No Do you have any muscle aches/pain?: No Do you have any abdominal pain?: No Are you experiencing loss of taste or smell?: No Review of Systems Review of Systems Review of systems:: pertinent systems reviewed and negative unless documented below Constitutional Constitutional: Reports weight gain Eyes Eyes: Reports system reviewed and no additional complaints, except as documented ENT Ears, Nose, Mouth, and Throat: Reports system reviewed and no additional complaints, except as documented *Cardiovascular Cardiovascular: Reports system reviewed and no additional complaints, except as documented, Denies chest pain, Denies dyspnea and Reports leg edema *Respiratory Respiratory: Reports system reviewed and no additional complaints, except as documented and Denies dyspnea *Gastrointestinal Gastrointestinal: Reports abdominal pain and Reports bloating Comments: Abdominal distention *Genitourinary Genitourinary: Denies oliguria Meds Home Medications and Allergies Home Medications ?Medication ?Instructions ?Recorded ?Confirmed ?Type blood sugar diagnostic (True #50 ea 04/13/23 08/05/24 Rx Metrix Glucose Test Strip) metoprolol succinate 25 mg 25 mg PO DAILY #30 tabs 05/08/24 08/05/24 Rx tablet,extended release 24 hr hydroxyzine pamoate 25 mg capsule 25 - 50 mg PO HSP PRN Sleep 06/22/24 08/05/24 History trazodone 150 mg tablet 150 mg PO HS 06/22/24 08/05/24 History albuterol sulfate 90 mcg/actuation 2 puff inhalation Q4HP PRN 06/25/24 08/05/24 Rx aerosol inhaler (Ventolin HFA) Shortness Of Breath Or Wheezing #8.5 grams furosemide 40 mg tablet 40 mg PO BID #60 tabs 07/17/24 08/05/24 Rx methocarbamol 500 mg tablet 500 mg PO HS #30 tabs 07/23/24 08/05/24 Rx ipratropium 0.5 mg-albuterol 3 mg 3 ml inhalation Q4HP PRN Shortness 07/25/24 08/05/24 History (2.5 mg base)/3 mL nebulization Of Breath soln potassium chloride 20 mEq 20 meq PO BID 07/25/24 08/05/24 History tablet,extended release levothyroxine 25 mcg tablet 25 mcg PO DAILY 08/05/24 08/05/24 History topiramate 25 mg tablet 25 mg PO BID 08/05/24 08/05/24 History tramadol 50 mg tablet 50 mg PO HS PRN Pain 08/05/24 08/05/24 History umeclidinium 62.5 mcg-vilanterol 1 inh inhalation DAILY 08/05/24 08/05/24 History 25 mcg/actuation powdr for inhalation (Anoro Ellipta) New Prescriptions to Start Prescriptions: Allergies Allergy/AdvReac Type Severity Reaction Status Date / Time amoxicillin AdvReac Hives Verified 07/25/24 08:09 Penicillins AdvReac Hives Verified 07/25/24 08:09 Exam (Inpt) Vital signs and Labs for Last 24 Hours: Temp Pulse Resp BP Pulse Ox O2 Del Method O2 Flow Rate 98.5 F 90 16 125/62 96 Room Air 1.5 08/06/24 11:56 08/06/24 11:56 08/06/24 11:56 08/06/24 11:56 08/06/24 11:56 08/06/24 13:00 08/06/24 01:00 Laboratory Results - last 24 hr 08/05/24 00:08: WBC 10.8, RBC 3.56 L, Hgb 11.5 L, Hct 33.3 L, MCV 93.5, MCH 32.3 H, MCHC 34.5, RDW 14.9, Plt Count 115 L, MPV 10.4, Neut % (Auto) 63.8, Lymph % (Auto) 23.4, [place] % (Auto) 10.2 H, Eos % (Auto) 1.8, Baso % (Auto) 0.3, Neut # (Auto) 6.9, Lymph # (Auto) 2.5, [place] # (Auto) 1.1 H, Eos # (Auto) 0.2, Baso # (Auto) 0.0, Sodium 129 L, Potassium 2.9 L* D, Chloride 90 L, Carbon Dioxide 32 H , Anion Gap 9.9, BUN 7 L, Creatinine 0.60 L, Estimated Creat Clear 177, Estimated GFR 140, Est GFR ( Amer) 170, Glucose 169 H D, Calcium 8.0 L 08/05/24 06:35: WBC 11.4 H, RBC 3.54 L, Hgb 11.6 L, MCV 92.7, MCH 32.8 H, MCHC 35.4, RDW 14.8, Plt Count 119 L, Potassium 2.4 L*, BUN 6 L, Creatinine 0.50 L, E st GFR ( Amer) 210 D, Glucose 122 H D 08/05/24 17:10: Sodium 133 L, Potassium 3.0 L D, Chloride 89 L, Carbon Dioxide 34 H, Anion Gap 13.0, BUN 7 L, Creatinine 0.60 L, Estimated Creat Clear 177, Estimated GFR 140, Est GFR ( Amer) 170, Glucose 164 H D, Calcium 8.4 08/06/24 05:39: POC Glucose 205 H 08/06/24 05:52: WBC 9.4, RBC 3.39 L, Hgb 10.9 L, Hct 31.5 L, MCV 92.9, MCH 32.2 H, MCHC 34.6, RDW 15.0, Plt Count 111 L, MPV 10.6 H, Neut % (Auto) 63.4, Lymph % (Auto) 23.9, [place] % (Auto) 10.7 H, Eos % (Auto) 1.4, Baso % (Auto) 0.3, Neut # (Auto) 6.0, Lymph # (Auto) 2.3, [place] # (Auto) 1.0, Eos # (Auto) 0.1, Baso # (Auto) 0.0, Sodium 128 L, Potassium 3.0 L, Chloride 93 L, Carbon Dioxide 29, Anion Gap 9.0, BUN 7 L, Creatinine 0.50 L, Estimated Creat Clear 212, Estimated GFR 173, Est GFR ( Amer) 210 D, Glucose 200 H D, Calcium 7.6 L, Magnesium 1.8, Total Bilirubin 2.6 H, AST 57, ALT 26, Alkaline Phosphatase 183 H , Total Protein 5.1 L, Albumin 2.5 L, Globulin 2.6, Albumin/Globulin Ratio 1.0 L , TSH 2.83, Free T4 1.54 08/06/24 11:55: POC Glucose 192 H 08/06/24 12:05: Sodium 132 L, Potassium 3.1 L, Chloride 94 L, Carbon Dioxide 32 H, Anion Gap 9.1, BUN 7 L, Creatinine 0.50 L, Estimated Creat Clear 212, Estimated GFR 173, Est GFR ( Amer) 210, Glucose 169 H, Calcium 8.0 L, T otal Bilirubin 3.5 H, AST 68 H, ALT 29, Alkaline Phosphatase 163 H, Total Protein 6.1 L, Albumin 3.2 L D, Globulin 2.9, Albumin/Globulin Ratio 1.1 I & O for Labs for Last 24 Hours: Intake & Output 08/04/24 08/05/24 08/06/24 08/07/24 11:59 11:59 11:59 11:59 Intake Total 610 928 240 Output Total 4976 6110 Balance -8925 -7862 240 Weight 88.67 kg 88.9 kg Microbiology Reports for the Last 24 Hours: Microbiology 08/04/24 22:55 Peritoneal Fluid Gram Stain - Final 08/04/24 22:55 Peritoneal Fluid Body Fluid Culture - Preliminary NO GROWTH AFTER 24 HOURS Constitutional: mild distress Head: Present normocephalic and atraumatic Respiratory: Present decreased breath sounds Cardiac: Present Reg Rate and Rhythm GI: Present distention (severe ascitic distention), normal bowel sounds and ascites Extremities: Present edema (4++ bilateral lower extremity edema) Results Labs 08/06/24 05:52 08/06/24 12:05 Labs: Laboratory Results - last 24 hr 08/05/24 00:08: WBC 10.8, RBC 3.56 L, Hgb 11.5 L, Hct 33.3 L, MCV 93.5, MCH 32.3 H, MCHC 34.5, RDW 14.9, Plt Count 115 L, MPV 10.4, Neut % (Auto) 63.8, Lymph % (Auto) 23.4, [place] % (Auto) 10.2 H, Eos % (Auto) 1.8, Baso % (Auto) 0.3, Neut # (Auto) 6.9, Lymph # (Auto) 2.5, [place] # (Auto) 1.1 H, Eos # (Auto) 0.2, Baso # (Auto) 0.0, Sodium 129 L, Potassium 2.9 L* D, Chloride 90 L, Carbon Dioxide 32 H , Anion Gap 9.9, BUN 7 L, Creatinine 0.60 L, Estimated Creat Clear 177, Estimated GFR 140, Est GFR ( Amer) 170, Glucose 169 H D, Calcium 8.0 L 08/05/24 06:35: WBC 11.4 H, RBC 3.54 L, Hgb 11.6 L, MCV 92.7, MCH 32.8 H, MCHC 35.4, RDW 14.8, Plt Count 119 L, Potassium 2.4 L*, BUN 6 L, Creatinine 0.50 L, E st GFR ( Amer) 210 D, Glucose 122 H D 08/05/24 17:10: Sodium 133 L, Potassium 3.0 L D, Chloride 89 L, Carbon Dioxide 34 H, Anion Gap 13.0, BUN 7 L, Creatinine 0.60 L, Estimated Creat Clear 177, Estimated GFR 140, Est GFR ( Amer) 170, Glucose 164 H D, Calcium 8.4 08/06/24 05:39: POC Glucose 205 H 08/06/24 05:52: WBC 9.4, RBC 3.39 L, Hgb 10.9 L, Hct 31.5 L, MCV 92.9, MCH 32.2 H, MCHC 34.6, RDW 15.0, Plt Count 111 L, MPV 10.6 H, Neut % (Auto) 63.4, Lymph % (Auto) 23.9, [place] % (Auto) 10.7 H, Eos % (Auto) 1.4, Baso % (Auto) 0.3, Neut # (Auto) 6.0, Lymph # (Auto) 2.3, [place] # (Auto) 1.0, Eos # (Auto) 0.1, Baso # (Auto) 0.0, Sodium 128 L, Potassium 3.0 L, Chloride 93 L, Carbon Dioxide 29, Anion Gap 9.0, BUN 7 L, Creatinine 0.50 L, Estimated Creat Clear 212, Estimated GFR 173, Est GFR ( Amer) 210 D, Glucose 200 H D, Calcium 7.6 L, Magnesium 1.8, Total Bilirubin 2.6 H, AST 57, ALT 26, Alkaline Phosphatase 183 H , Total Protein 5.1 L, Albumin 2.5 L, Globulin 2.6, Albumin/Globulin Ratio 1.0 L , TSH 2.83, Free T4 1.54 08/06/24 11:55: POC Glucose 192 H 08/06/24 12:05: Sodium 132 L, Potassium 3.1 L, Chloride 94 L, Carbon Dioxide 32 H, Anion Gap 9.1, BUN 7 L, Creatinine 0.50 L, Estimated Creat Clear 212, Estimated GFR 173, Est GFR ( Amer) 210, Glucose 169 H, Calcium 8.0 L, T otal Bilirubin 3.5 H, AST 68 H, ALT 29, Alkaline Phosphatase 163 H, Total Protein 6.1 L, Albumin 3.2 L D, Globulin 2.9, Albumin/Globulin Ratio 1.1 Assessment and Plan *Assessment and plan (1) Decompensated hepatic cirrhosis: Status: Acute Category: Medical Code(s): K72.90 - Hepatic failure, unspecified without coma; K74.60 - Unspecified cirrhosis of liver (2) Thrombocytopenia: Status: Acute Category: Medical Code(s): D69.6 - Thrombocytopenia, unspecified (3) Transaminitis: Status: Acute Category: Medical Code(s): R74.01 - Elevation of levels of liver transaminase levels (4) Hyponatremia: Status: Acute Category: Medical Code(s): E87.1 - Hypo-osmolality and hyponatremia (5) Ascites: Status: Acute Qualifiers: Ascites type: due to alcoholic cirrhosis Qualified Code(s): K70.31 - Alcoholic cirrhosis of liver with ascites Category: Medical Code(s): R18.8 - Other ascites (6) Alcohol abuse: Status: Chronic Category: Social Hx Code(s): F10.10 - Alcohol abuse, uncomplicated Plan 1. Decompensated hepatic cirrhosis/alcohol abuse Bilirubin 3.8, AST of 62, ALT of 31 and an alk phos of 196. Has had elevated AST and alk phos for years with elevations in bilirubin beginning in August of last year. Admits to chronic alcoholism for 30+ years current MELD sodium score equals 22 points was 23 points upon arrival in the ER. Platelets at 111, INR 1.4, sodium of 127 creatinine 0.6 hemoglobin 10.9. Status post paracentesis with 3 L of ascitic fluid removed in the ER and drain left in place has required to further episodes of draining ascitic fluid since admission. Is a net negative fluid balance -3702 mL as an inpatient. Has been on spironolactone 100 mg daily and Lasix 40 mg twice daily IV. See below recommendations. Given patient's extensive decompensated cirrhosis, last EGD at in November 2023. He never followed up and either rescheduled or no showed multiple appointments at with transplant team and GI outpatient clinic. He does need further follow- up as an outpatient but with a tertiary care center at this point. He has declined but is happy to seek care at [facility] for long-term care. I would recommend a referral to [facility] at discharge. We discussed complete elimination of alcohol going forward. He does follow with Jeremias Boss to help with moving towards alcohol cessation. 2. Ascites Status post paracentesis procedure in the ER with 3 L removed and drain remains in place necessitating to further withdrawals of fluid since admission. Has had a negative fluid balance of -3702 mL since admission. Patient reports taking his diuretics at home but continues to drink alcohol. Currently as an inpatient, patient on 100 mg of spironolactone p.o. daily plus Lasix 40 mg IV twice daily. May consider changing the IV Lasix to p.o. as IV can increase the risk of renal dysfunction and can get similar results with the p.o. Lasix. Recommend p.o. doses spironolactone and Lasix be given together in the morning which can improve diuretic effects as opposed to giving them sequentially. Recommend a second dose of Lasix in the evening. Recommend we maintain a 40 mg of Lasix to 100 mg of spironolactone relationship and after discussion with Dr. Escobedo, I recommend we move towards maximizing diuretic dosing. I would start by increasing the spironolactone oral dose to 200 mg in the morning (especially with the hypokalemia). If unable to maintain potassium levels with the increase spironolactone, may decrease Lasix until potassium normalizes. Otherwise, after 3 days, would increase Lasix to 80 mg every morning and 40 mg every afternoon with 300 mg of spironolactone every morning. If needed after 3-5 more days, could be maxed out with Lasix 80 mg twice daily and spironolactone 400 mg daily. I would recommend a low-sodium, high-protein diet. If this does not control his ascites or he is intolerant to the higher doses of diuretics, may need a TIPS procedure.
[2024-08-06] MEDS: MULTIVITAMIN TABLET 1 EACH PO (16:16)
[2024-08-06] MEDS: humaLOG 100 UNITS/ML 10ML VIAL (SSI) SUBCUT (16:23)
--- NOTE | 2024-08-06 16:51 | P.PN_ITS ---
Subjective *Date: 08/06/24 *Time: 16:51 Interval history: Patient is improving, less abdominal distention and lower extreme pitting edema. Continue IV diuresis, paracentesis drain intermittently removed by patient today. Exam Data for Last 24 hours Vital signs and Labs for Last 24 Hours: Temp Pulse Resp BP Pulse Ox O2 Del Method O2 Flow Rate 98.2 F 93 H 16 115/56 L 97 Room Air 1.5 08/06/24 16:00 08/06/24 16:00 08/06/24 16:00 08/06/24 16:00 08/06/24 16:00 08/06/24 16:00 08/06/24 01:00 Laboratory Results - last 24 hr 08/05/24 00:08: WBC 10.8, RBC 3.56 L, Hgb 11.5 L, Hct 33.3 L, MCV 93.5, MCH 32.3 H, MCHC 34.5, RDW 14.9, Plt Count 115 L, MPV 10.4, Neut % (Auto) 63.8, Lymph % (Auto) 23.4, [place] % (Auto) 10.2 H, Eos % (Auto) 1.8, Baso % (Auto) 0.3, Neut # (Auto) 6.9, Lymph # (Auto) 2.5, [place] # (Auto) 1.1 H, Eos # (Auto) 0.2, Baso # (Auto) 0.0, Sodium 129 L, Potassium 2.9 L* D, Chloride 90 L, Carbon Dioxide 32 H , Anion Gap 9.9, BUN 7 L, Creatinine 0.60 L, Estimated Creat Clear 177, Estimated GFR 140, Est GFR ( Amer) 170, Glucose 169 H D, Calcium 8.0 L 08/05/24 06:35: WBC 11.4 H, RBC 3.54 L, Hgb 11.6 L, MCV 92.7, MCH 32.8 H, MCHC 35.4, RDW 14.8, Plt Count 119 L, Potassium 2.4 L*, BUN 6 L, Creatinine 0.50 L, Est GFR ( Amer) 210 D, Glucose 122 H D 08/05/24 17:10: Sodium 133 L, Potassium 3.0 L D, Chloride 89 L, Carbon Dioxide 34 H, Anion Gap 13.0, BUN 7 L, Creatinine 0.60 L, Estimated Creat Clear 177, Estimated GFR 140, Est GFR ( Amer) 170, Glucose 164 H D, Calcium 8.4 08/06/24 05:39: POC Glucose 205 H 08/06/24 05:52: WBC 9.4, RBC 3.39 L, Hgb 10.9 L, Hct 31.5 L, MCV 92.9, MCH 32.2 H, MCHC 34.6, RDW 15.0, Plt Count 111 L, MPV 10.6 H, Neut % (Auto) 63.4, Lymph % (Auto) 23.9, [place] % (Auto) 10.7 H, Eos % (Auto) 1.4, Baso % (Auto) 0.3, Neut # (Auto) 6.0, Lymph # (Auto) 2.3, [place] # (Auto) 1.0, Eos # (Auto) 0.1, Baso # (Auto) 0.0, Sodium 128 L, Potassium 3.0 L, Chloride 93 L, Carbon Dioxide 29, Anion Gap 9.0, BUN 7 L, Creatinine 0.50 L, Estimated Creat Clear 212, Estimated GFR 173, Est GFR ( Amer) 210 D, Glucose 200 H D, Calcium 7.6 L, Magnesium 1.8, Total Bilirubin 2.6 H, AST 57, ALT 26, Alkaline Phosphatase 183 H , Total Protein 5.1 L, Albumin 2.5 L, Globulin 2.6, Albumin/Globulin Ratio 1.0 L , TSH 2.83, Free T4 1.54 08/06/24 11:55: POC Glucose 192 H 08/06/24 12:05: Sodium 132 L, Potassium 3.1 L, Chloride 94 L, Carbon Dioxide 32 H, Anion Gap 9.1, BUN 7 L, Creatinine 0.50 L, Estimated Creat Clear 212, Estimated GFR 173, Est GFR ( Amer) 210, Glucose 169 H, Calcium 8.0 L, Total Bilirubin 3.5 H, AST 68 H, ALT 29, Alkaline Phosphatase 163 H, Total Protein 6.1 L, Albumin 3.2 L D, Globulin 2.9, Albumin/Globulin Ratio 1.1 I & O for Last 24 hours: Intake & Output 08/03/24 08/04/24 08/05/24 08/06/24 23:59 23:59 23:59 23:59 Intake Total 1320 / 1420 458 / 458 Output Total 3100 / 3100 3325 / 4425 3200 / 3200 Balance -3100 / -2850 -2004 / 3005 -2742 / -2742 Weight 90.718 kg 88.67 kg 88.9 kg Microbiology Reports for the Last 24 Hours: Microbiology 08/04/24 22:55 Peritoneal Fluid Gram Stain - Final 08/04/24 22:55 Peritoneal Fluid Body Fluid Culture - Preliminary NO GROWTH AFTER 24 HOURS Constitutional Constitutional: no acute distress Comments: Anasarca *Routine HEENT Exam Head: Present normocephalic Eye: Present EOMI and PERRL ENT: Present mucous membranes moist *Routine Neck Exam Neck: Present supple; Absent lymphadenopathy *Routine Respiratory Exam Respiratory: Present CTA bilaterally *Routine Cardiovascular Exam Cardiovascular: Present RRR *Routine Abdominal Exam Abdominal: Present soft, normoactive bowel sounds, tenderness and distended *Routine Extremities Exam Extremities: Present edema; Absent cyanosis or clubbing Comments: Lower extremity 4+ pitting edema *Routine Skin Exam Skin: Present warm; Absent rash *Routine Neurological Exam Neurological: Present alert and oriented X3 Assessment and Plan *Assessment and plan (1) Decompensated hepatic cirrhosis: Status: Acute Category: Medical Code(s): K72.90 - Hepatic failure, unspecified without coma; K74.60 - Unspecified cirrho sis of liver (2) C. difficile diarrhea: Status: Acute Category: Medical Code(s): A04.72 - Enterocolitis due to Clostridium difficile, not specified as recurrent (3) Thrombocytopenia: Status: Acute Category: Medical Code(s): D69.6 - Thrombocytopenia, unspecified (4) Transaminitis: Status: Acute Category: Medical Code(s): R74.01 - Elevation of levels of liver transaminase levels (5) Hypomagnesemia: Status: Acute Category: Medical Code(s): E83.42 - Hypomagnesemia (6) Cirrhosis: Status: Acute Qualifiers: Hepatic cirrhosis type: alcoholic cirrhosis Ascites presence: with ascites Qualified Code(s): K70.31 - Alcoholic cirrhosis of liver with ascites Category: Medical Code(s): K74.60 - Unspecified cirrhosis of liver (7) Hypokalemia: Status: Acute Category: Medical Code(s): E87.6 - Hypokalemia (8) Hyponatremia: Status: Acute Category: Medical Code(s): E87.1 - Hypo-osmolality and hyponatremia (9) Ascites: Status: Acute Qualifiers: Ascites type: due to alcoholic cirrhosis Qualified Code(s): K70.31 - Alcoholic cirrhosis of liver with ascites Category: Medical Code(s): R18.8 - Other ascites (10) Smoking greater than 30 pack years: Status: Chronic Category: Social Hx Code(s): F17.210 - Nicotine dependence, cigarettes, uncomplicated (11) Dyspnea on exertion: Status: Acute Category: Medical Code(s): R06.09 - Other forms of dyspnea Plan Charlie Davis is a 54-year-old male with a medical history significant for alcoholic cirrhosis presented with worsening abdominal distention and was admitted for decompensated cirrhosis. #Decompensated alcoholic cirrhosis #Pulmonary edema #Significant ascites #Anasarca ? Patient states he ran out of his Lasix a few weeks ago and has not refilled it or followed up with his PCP. ? Gross signs of volume overload with anasarca and significant abdominal ascites/distention on admission. Requiring 1.5 L nasal cannula, weaned to room air today. ? MELD score 24, ~15% 90-day mortality rate. Has quit drinking alcohol recently. ? S/p paracentesis in the ED with 3.1 L serous output. Negative for SBP. ? Drained another 5900 mL via paracentesis drain in last 36 hours, IV albumin 25 g given. The drain was inadvertently pulled out by patient after draining was completed today. Will place suture. ? Continue IV Lasix 80 mg twice daily, spironolactone 100 mg. Has had 3500 mL urine output. ? Follow-up AFP. Hepatitis C negative. ? Fluid restriction 1500 mL. High-protein diet. ? GI consulted, pending further recommendations. #Hyponatremia #Hypokalemia #Hypomagnesemia ? Sodium 132, potassium 3.0, magnesium 1.8 today. ? Repleting potassium with p.o. to avoid further IV fluids. Continuous cardiac telemetry. #COPD #Current tobacco user ? Continue home Anoro Ellipta, DuoNebs/albuterol as needed. Patient prefers albuterol. #Former alcohol use disorder ? Patient has been sober for 2 weeks. Discussing with peers support, will follow-up with [facility]. DNR/DNI DVT prophylaxis: Lovenox 40 mg
--- NOTE | 2024-08-06 17:36 | PC.NURSE ---
chest tube removed by patient this afternoon. ambulating in room without difficulty. 4 l drained from peritoneal drain.
--- NOTE | 2024-08-06 17:40 | PEERSUPPORT ---
Peer Support Note Patient Information Patient Information: DOS: 08/06/2024 Reason: ETOH, AUD ? Ps consult: Pt admitted at [facility] ? ETOH HX: Pt has drank whiskey for 30 years, until last three weeks. Pt stated he has not drank in 3 weeks, since establishing care with [facility]. ? Previous Treatment: No treatment prior to his care established three weeks ago with [facility] in [place], [place].? ? Longest Length of Sobriety: Three weeks ? Legal Issues: None ? Support System: -Sister, Brother in law to an extent as they have their own lives. -[facility] has been supportive and helpful -Step-son ? Current Stressors: -Swelling of feets and stomach, fluids retained making it uncomfortable and painful. -anxiety when it peaks mostly at nighttime, triggered by thoughts and images. -negative experiences with hospitals in regard to loss of loved ones makes it challenging to receive care for himself. -decisions to be made for higher level of care or other hospital to be consider for liver transplant. -Telehealth appointment with Dr. Ames on 08/07/2024 @9:30am. ? Motivation for Change: -Pt stated he is aware that he cannot do this alone and needs the support to continue to not drink. He is aware there is medications that can assist him with cravings and urges that is to be discussed by [facility] clinicians over the next few appointments. He is doing well with [facility], and having the ability to have telehealth appointments is helpful to his situation and circumstances. ? Potential Barriers: -Transportation to and from hospitals for ongoing care. ? Harm Reduction: -Connection to [facility] for recovery support -Education to AUD, and underlying issues. -Provide support and encouragement with compassion. ? Plan of Action: -Continue care with [facility] for AUD. -Focus on physical wellbeing while admitted, accepting support and care. ?
[2024-08-06] MEDS: PANTOPRAZOLE 40MG TABLET 40 MG PO (21:50)
[2024-08-06] MEDS: hydrOXYzine pamoate 25MG CAPSULE 25 MG PO (21:54)
[2024-08-06] MEDS: TRAMADOL 50MG TABLET 50 MG PO (21:55)
[2024-08-07] VITALS (8 sets, daily range): BP systolic 101–133; BP diastolic 46–68; PULSE 77–97; RESP 16–17; TEMP 36.6–37; O2SAT 94–96; BMI 28.0
--- NOTE | 2024-08-07 05:11 | PC.NURSE ---
V/s, ox4. Drainage has been monitored from where pt had peritoneal drain placed. Fluid is continuing to leak from suture site. Pt has been non compliant with fluid restriction of 1200. Pt's abdomen is still extremely distended. Plan of care ongoing.
[2024-08-07] MEDS: LEVOTHYROXINE 25MCG (0.025MG) TAB 25 MCG PO (06:13)
[2024-08-07 06:20] LABS: Albumin Level 2.6 g/dl (3.5-5.0); Basophils % 0.4 % (0.1-2.0); Chloride 99 mmol/L (98-107); Eosinophils # 0.1 K/mm3 (0.0-0.4); Eosinophils % 1.4 % (0.1-12.0); Hematocrit 33.4 % (42.0-52.0); Hemoglobin 11.4 g/dL (14.1-18.0); Lymphocytes # 2.6 K/mm3 (0.7-4.5); Lymphocytes % 25.6 % (10-50); Mean Corpuscular HGB Conc 34.1 g/dL (31.8-35.4); Mean Corpuscular Volume 93.8 fl (80-94); Mean Platelet Volume 10.6 fl (7.4-10.4); Monocytes # 1.2 K/mm3 (0.1-1.0); Neutrophils # 6.1 K/mm3 (1.8-7.8); Neutrophils % 60.2 % (37.0-80.0); Nucleated Red Blood Cells # 0 10^3/uL; Nucleated Red Blood Cells % 0 %; Platelet Count 117 K/mm3 (142-424); Red Blood Count 3.56 M/mm3 (4.60-6.20); Red Cell Distribution Width 15.2 % (11.5-17.5); Red Cell Distribution Width-SD 52.9 fL; White Blood Count 10.1 K/mm3 (4.8-10.8)
[2024-08-07 06:21] LABS: Potassium 4.4 mmoL/L (3.5-5.1); Sodium 131 mmol/L (136-145)
[2024-08-07 06:23] LABS: Alanine Aminotransferase 26 U/L (12-78); Alkaline Phosphatase 159 U/L (38-126); Anion Gap 8.4 mEq/L (5-15); Aspartate Amino Transferase 62 U/L (17-59); Bilirubin,Total 2.5 mg/dl (0.2-1.3); Blood Urea Nitrogen 10 mg/dl (9-20); Carbon Dioxide 28 mmol/L (22.0-30.0); Creatinine Clearance Estimated 177 mL/min (50-200); Estimated Glomerular Filt Rate 140 ml/min (>60); GFR (African American) 170 ML/MIN (>60)
[2024-08-07 06:24] LABS: Albumin/Globulin Ratio 0.9 (1.1-1.8); Globulin 2.9 g/dL (1.3-3.2); Glucose 165 mg/dl (74-100); Magnesium 1.8 mg/dl (1.6-2.3); Total Protein,Serum 5.5 g/dl (6.3-8.2)
[2024-08-07] MEDS: ALBUTEROL-HFA 90MCG/PUFF INHALER 8GM 2 PUFF IH (06:40)
[2024-08-07] MEDS: FUROSEMIDE 100MG/10ML VIAL 80 MG IV ×2 (09:05→16:25)
[2024-08-07] MEDS: FOLIC ACID 1MG TABLET 1 MG PO (09:05)
[2024-08-07] MEDS: MAGNESIUM OXIDE 400MG TABLET 400 MG PO (09:05)
[2024-08-07] MEDS: METOPROLOL SUCCINATE XL 25MG TABLET 25 MG PO (09:06)
[2024-08-07] MEDS: SPIRONOLACTONE 25MG TABLET 200 MG PO (09:06)
[2024-08-07] MEDS: THIAMINE 100MG TABLET 100 MG PO (09:07)
[2024-08-07] MEDS: POTASSIUM CHLORIDE 20MEQ TAB 40 MEQ PO (09:09)
[2024-08-07] MEDS: TRAMADOL 50MG TABLET 50 MG PO ×2 (09:14→20:39)
[2024-08-07 11:56] LABS: POC Glucose,Bedside 172 (70-110)
[2024-08-07 12:42] LABS: AFP, Tumor Marker 8.8 ng/mL (0.0-8.4)
--- NOTE | 2024-08-07 12:59 | P.PN_ITS ---
Subjective *Date: 08/07/24 *Time: 16:02 Interval history: Patient alert and oriented, sitting up in his a chair, periodically ambulatory in the room and hallway. Incidental loss of peritoneal drain overnight site sutured, continues to leak ascitic fluid. Continued 4++ pitting edema bilateral lower extremities. Patient is urinating frequently on 80 mg of Lasix twice daily +200 mg spironolactone p.o. every morning. Exam Data for Last 24 hours Vital signs and Labs for Last 24 Hours: Temp Pulse Resp BP Pulse Ox O2 Del Method O2 Flow Rate 98.3 F 83 16 103/49 L 96 Room Air 2 08/07/24 12:15 08/07/24 12:15 08/07/24 12:15 08/07/24 12:15 08/07/24 12:15 08/07/24 12:15 08/06/24 20:00 FiO2 20 08/07/24 08:00 Laboratory Results - last 24 hr 08/06/24 00:08: Tumor Marker AFP 8.8 H 08/07/24 05:18: WBC 10.1, RBC 3.56 L, Hgb 11.4 L, Hct 33.4 L, MCV 93.8, MCH 32.0 H, MCHC 34.1, RDW 15.2, Plt Count 117 L, MPV 10.6 H, Neut % (Auto) 60.2, Lymph % (Auto) 25.6, [place] % (Auto) 12.0 H, Eos % (Auto) 1.4, Baso % (Auto) 0.4, Neut # (Auto) 6.1, Lymph # (Auto) 2.6, [place] # (Auto) 1.2 H, Eos # (Auto) 0.1, Baso # (Auto) 0.0, Sodium 131 L, Potassium 4.4 D, Chloride 99, Carbon Dioxide 28, Anion Gap 8.4, BUN 10 D, Creatinine 0.60 L, Estimated Creat Clear 177, Estimated GFR 140, Est GFR ( Amer) 170, Glucose 165 H, Calcium 8.0 L, Magnesium 1.8, Total Bilirubin 2.5 H, AST 62 H, ALT 26, Alkaline Phosphatase 159 H, Total Protein 5.5 L, Albumin 2.6 L D, Globulin 2.9, Albumin/Globulin Ratio 0.9 L 08/07/24 11:25: POC Glucose 172 H I & O for Last 24 hours: Intake & Output 08/05/24 08/06/24 08/07/24 08/08/24 11:59 11:59 11:59 11:59 Intake Total 610 928 720 Output Total 5170 4450 2625 Balance -5531 -7167 -7116 Weight 88.67 kg 88.9 kg 88.9 kg Microbiology Reports for the Last 24 Hours: Microbiology 08/04/24 22:55 Peritoneal Fluid Gram Stain - Final 08/04/24 22:55 Peritoneal Fluid Body Fluid Culture - Preliminary NO GROWTH AFTER 48 HOURS *Routine HEENT Exam Head: Present normocephalic and atraumatic *Routine Respiratory Exam Respiratory: Present rhonchi *Routine Cardiovascular Exam Cardiovascular: Present RRR *Routine Abdominal Exam Abdominal: Present tenderness (mild ttp RLQ near drain site, improved) and distended (significant distention with ascitic fluid) *Routine Extremities Exam Extremities: Present edema (bilat LE 4++ pitting edema) *Routine Skin Exam Skin: Present dry and warm *Routine Neurological Exam Neurological: Present alert, oriented X3, moving all extremities, vision grossly intact, hearing grossly intact and normal speech Assessment and Plan *Assessment and plan (1) Decompensated hepatic cirrhosis: Status: Acute Category: Medical Code(s): K72.90 - Hepatic failure, unspecified without coma; K74.60 - Unspecified cirrhosis of liver (2) Thrombocytopenia: Status: Acute Category: Medical Code(s): D69.6 - Thrombocytopenia, unspecified (3) Transaminitis: Status: Acute Category: Medical Code(s): R74.01 - Elevation of levels of liver transaminase levels (4) Ascites: Status: Acute Qualifiers: Ascites type: due to alcoholic cirrhosis Qualified Code(s): K70.31 - Alcoholic cirrhosis of liver with ascites Category: Medical Code(s): R18.8 - Other ascites (5) Hyperbilirubinemia: Status: Acute Category: Medical Code(s): E80.6 - Other disorders of bilirubin metabolism (6) Alcohol abuse: Status: Acute Category: Social Hx Code(s): F10.10 - Alcohol abuse, uncomplicated Plan 1. Decompensated hepatic cirrhosis/alcohol abuse Bilirubin improved to 2.5, AST of 62, ALT of 26 and an alk phos of 159. Has had elevated AST and alk phos for years with elevations in bilirubin beginning in August of last year. Admits to chronic alcoholism for 30+ years current MELD sodium score equals 22 points. He reports that he had 3 weeks of sobriety. Alcohol level was below 10 upon arrival in the ER. I expect slow continued i mprovement of his transaminitis and elevated bilirubin the longer he is sober. Patient is currently on 200 mg of p.o. spironolactone every morning and 80 mg Lasix IV twice daily. See below recommendations. Given patient's extensive decompensated cirrhosis, he does need further follow-up as an outpatient but with a tertiary care center at this point and palns to do this with [facility]. He has declined [facility]. I would recommend a referral to [facility] at discharge. We discussed complete elimination of alcohol going forward and his mortality risk if he continues to drink ETOH after discharge. He does follow with Jeremias Boss to help with moving towards alcohol cessation and has a Zoom appointment on Tuesday which he can do on his own telephone. 2. Ascites Has had a negative fluid balance. Patient reports taking his diuretics at home but continues to drink alcohol. Currently as an inpatient, patient on 200 mg of spironolactone p.o. daily plus Lasix 80 mg IV twice daily. May consider changing the IV Lasix to p.o. as IV can increase the risk of renal dysfunction and can get similar results with the p.o. Lasix. Recommend p.o. doses spironolactone and Lasix be given together in the morning which can improve diuretic effects as opposed to giving them sequentially. Recommend we work toward a 40 mg of Lasix to 100 mg of spironolactone balance. We have maximized Lasix dosing. I recommend we gradually continue moving towards maximizing spironolactone dosing. No evidence of azotemia, increased hepatic encephalopathy, potassium levels have normalized with replacement I recommend a low-sodium high-protein diet. I recommend increasing spironolactone to 300 mg in 3 days. If this does not control his ascites or he is intolerant to the higher doses of diuretics, may need a TIPS procedure.
[2024-08-07] MEDS: MULTIVITAMIN TABLET 1 EACH PO (16:24)
--- NOTE | 2024-08-07 17:56 | PEERSUPPORT ---
Peer Support Note Patient Information Patient Information: DOS: 08/07/2024 ? Ps visited patient for check-in. Pt asleep in chair. ? Ps revisited pt. ? Pt stated he did not sleep any last night, but hopeful he will be able to sleep tonight. -Painful swelling in stomach, makes it difficult to get comfortable. -Unknowing what the treatment is for his swelling, since accidentally removing his drain tube from his stomach. All he knows as the course of treatment is they keep re-bandaging his stomach to stop the leaking. ? Ps offers reading content, as well as encouraging interest such as music or videos that can be played on his cell phone to bring him comfort and distraction. ? Pt request nothing, stating he would like to watch his Night Out TV shows but they are not available on cable here. Ps provided positive support by bringing patients attention to continued sobriety despite challenges encouraging acceptance and awareness to his recovery and wellness journey. Pt is receptive to ps, and agrees to ps check in on 08/08/2024. ?
--- NOTE | 2024-08-07 18:00 | P.PN_ITS ---
Subjective *Date: 08/07/24 *Time: 22:56 Interval history: Denies shortness of breath. Stable on room air. Complaining of leaking from site of paracentesis. Denies any worsening abdominal pain. Tolerating p.o. intake. Responding to diuretics. Afebrile Medical Exam Vital signs and Labs for Last 24 Hours: Vital Signs Temp Pulse Pulse Resp BP Pulse Ox O2 Del Method 08/07/24 17:40 Room Air 08/07/24 16:57 Room Air 08/07/24 16:00 98.1 F 77 16 103/51 L 95 Room Air 08/07/24 15:00 Room Air 08/07/24 13:00 Room Air 08/07/24 12:15 98.3 F 83 16 103/49 L 96 Room Air 08/07/24 12:00 90 08/07/24 11:00 Room Air 08/07/24 09:56 Room Air 08/07/24 09:15 91 H 117/63 08/07/24 09:00 Room Air 08/07/24 08:00 90 08/07/24 08:00 98.6 F 85 101/46 L 94 L Room Air 08/07/24 06:46 Room Air 08/07/24 04:29 Room Air 08/07/24 04:00 90 08/07/24 04:00 98.4 F 97 H 17 133/68 95 Room Air 08/07/24 03:00 Room Air 08/07/24 01:00 Room Air 08/07/24 00:00 85 08/06/24 23:00 Room Air 08/06/24 21:00 Room Air 08/06/24 20:00 80 08/06/24 20:00 Room Air 08/06/24 20:00 99.0 F 86 17 97/53 L 92 L Nasal Cannula 08/06/24 18:01 Room Air O2 Flow Rate FiO2 08/07/24 17:40 08/07/24 16:57 08/07/24 16:00 08/07/24 15:00 08/07/24 13:00 08/07/24 12:15 08/07/24 12:00 08/07/24 11:00 08/07/24 09:56 08/07/24 09:15 08/07/24 09:00 08/07/24 08:00 08/07/24 08:00 20 08/07/24 06:46 08/07/24 04:29 08/07/24 04:00 08/07/24 04:00 08/07/24 03:00 08/07/24 01:00 08/07/24 00:00 08/06/24 23:00 08/06/24 21:00 08/06/24 20:00 08/06/24 20:00 08/06/24 20:00 2 08/06/24 18:01 Intake and Output 08/07/24 08/07/24 08/07/24 07:59 15:59 23:59 Intake Total 240 / 840 600 / 840 Output Total 125 / 1325 1200 / 1325 0 / 1325 Balance 115 / -485 -600 / -485 0 / -485 Intake: Intake, Oral Amount 240 / 840 600 / 840 Output: Output, Urine Amount 125 / 1325 1200 / 1325 0 / 1325 Other: Number of Unmeasured Voids 0 0 Weight 88.9 kg Patient Weight 08/07/24 23:59 Weight 88.9 kg Laboratory Results - last 24 hr 08/06/24 00:08: Tumor Marker AFP 8.8 H 08/07/24 05:18: WBC 10.1, RBC 3.56 L, Hgb 11.4 L, Hct 33.4 L, MCV 93.8, MCH 32.0 H, MCHC 34.1, RDW 15.2, Plt Count 117 L, MPV 10.6 H, Neut % (Auto) 60.2, Lymph % (Auto) 25.6, [facility] % (Auto) 12.0 H, Eos % (Auto) 1.4, Baso % (Auto) 0.4, Neut # (Auto) 6.1, Lymph # (Auto) 2.6, [facility] # (Auto) 1.2 H, Eos # (Auto) 0.1, Baso # (Auto) 0.0, Sodium 131 L, Potassium 4.4 D, Chloride 99, Carbon Dioxide 28, Anion Gap 8.4, BUN 10 D, Creatinine 0.60 L, Estimated Creat Clear 177, Estimated GFR 140, Est GFR ( Amer) 170, Glucose 165 H, Calcium 8.0 L, Magnesium 1.8, Total Bilirubin 2.5 H, AST 62 H, ALT 26, Alkaline Phosphatase 159 H, Total Protein 5.5 L, Albumin 2.6 L D, Globulin 2.9, Albumin/Globulin Ratio 0.9 L 08/07/24 11:25: POC Glucose 172 H I & O for Labs for Last 24 Hours: Intake & Output 08/04/24 08/05/24 08/06/24 08/07/24 23:59 23:59 23:59 23:59 Intake Total 1320 / 1420 458 / 698 840 / 840 Output Total 3100 / 3100 3325 / 4425 5200 / 5200 1325 / 1325 Balance -3100 / -2850 -2005 / -3005 -4742 / -4502 -485 / -485 Weight 90.718 kg 88.67 kg 88.9 kg 88.9 kg Microbiology Reports for the Last 24 Hours: Microbiology 08/04/24 22:55 Peritoneal Fluid Gram Stain - Final 08/04/24 22:55 Peritoneal Fluid Body Fluid Culture - Preliminary NO GROWTH AFTER 48 HOURS Constitutional: Present chronically ill appearing and cooperative Head: Present atraumatic and normocephalic ENT: Present normal exam Respiratory: Present normal respiratory effort; Absent rhonchi, wheezes or crackles Cardiac: Present Reg Rate and Rhythm GI: Present distention and normal bowel sounds; Absent tenderness, guarding or rebound Extremities: Present normal inspection, full ROM and edema (3+ to thighs) Skin: Present intact; Absent erythema Neuro: Present Grossly Intact, alert, awake, oriented x 3 and moves all extremities Assessment and Plan *Assessment and plan (1) Decompensated hepatic cirrhosis: Status: Acute Category: Medical Code(s): K72.90 - Hepatic failure, unspecified without coma; K74.60 - Unspecified cirrhosis of liver (2) Thrombocytopenia: Status: Acute Category: Medical Code(s): D69.6 - Thrombocytopenia, unspecified (3) Transaminitis: Status: Acute Category: Medical Code(s): R74.01 - Elevation of levels of liver transaminase levels (4) Hypomagnesemia: Status: Acute Category: Medical Code(s): E83.42 - Hypomagnesemia (5) Cirrhosis: Status: Acute Qualifiers: Hepatic cirrhosis type: alcoholic cirrhosis Ascites presence: with ascites Qualified Code(s): K70.31 - Alcoholic cirrhosis of liver with ascites Category: Medical Code(s): K74.60 - Unspecified cirrhosis of liver (6) Hypokalemia: Status: Acute Category: Medical Code(s): E87.6 - Hypokalemia (7) Hyponatremia: Status: Acute Category: Medical Code(s): E87.1 - Hypo-osmolality and hyponatremia (8) Ascites: Status: Acute Qualifiers: Ascites type: due to alcoholic cirrhosis Qualified Code(s): K70.31 - Alcoholic cirrhosis of liver with ascites Category: Medical Code(s): R18.8 - Other ascites (9) Smoking greater than 30 pack years: Status: Chronic Category: Social Hx Code(s): F17.210 - Nicotine dependence, cigarettes, uncomplicated (10) Dyspnea on exertion: Status: Acute Category: Medical Code(s): R06.09 - Other forms of dyspnea Plan Charlie Davis is a 54-year-old male with a medical history significant for alcoholic cirrhosis presented with worsening abdominal distention and was admitted for decompensated cirrhosis. Tolerating diuretics. Continue aggressive diuresis. Monitor overnight. Will consider repeat paracentesis in the morning. Problems addressed as follows: #Decompensated alcoholic cirrhosis #Pulmonary edema #Significant ascites #Anasarca ? Patient states he ran out of his Lasix a few weeks ago and has not refilled it or followed up with his PCP. ? Gross signs of volume overload with anasarca and significant abdominal ascites/distention on admission. Stable on room air ? MELD score 24, ~15% 90-day mortality rate. Has quit drinking alcohol recently. ? S/p paracentesis, pigtail drain removed yesterday, still having leakage from paracentesis site. No concern for SBP at this time. -6 L from abdomen. Received albumin replacement. Consider repeat paracentesis in the morning given distention and belly. ? Continue IV Lasix 80 mg twice daily, spironolactone 200 mg. ? AFP elevated at 8. Hepatitis C negative. ? Fluid restriction 1500 mL. High-protein diet. ? GI consulted, pending further recommendations. #Hyponatremia #Hypokalemia #Hypomagnesemia ? Sodium 131, chloride 99, potassium 4.4. Kidney function stable with BUN 10, creatinine 0.6. - Repleting potassium with p.o. to avoid further IV fluids. Continuous cardiac telemetry. #COPD #Current tobacco user ? Continue home Anoro Ellipta, DuoNebs/albuterol as needed. Patient prefers albuterol. #Former alcohol use disorder ? Patient has been sober for 2 weeks. Discussing with peers support, will follow-up with [facility]. DNR/DNI DVT prophylaxis: Lovenox 40 mg
[2024-08-07] MEDS: PANTOPRAZOLE 40MG TABLET 40 MG PO (20:37)
[2024-08-07] MEDS: hydrOXYzine pamoate 25MG CAPSULE 25 MG PO (20:37)
[2024-08-07] MEDS: NICOTINE 21MG/24HR PATCH 21 MG TD (20:56)
[2024-08-08] VITALS: BP 94/49; PULSE 75; PULSE 88; RESP 16; TEMP 36.7; O2SAT 93
[2024-08-08 00:59] LABS: POC Glucose,Bedside 188 (70-110)
[2024-08-08 04:00] VITALS: BP 99/45; PULSE 87; PULSE 90; RESP 16; TEMP 36.8; O2SAT 94; BMI 26.9
--- NOTE | 2024-08-08 05:21 | PC.NURSE ---
Alert and oriented. Ambulates in the room. No complaints from patient. Nicotine patch applied this shift to left upper arm. Drainage noted to incision site right lower quadrant, changed 2 times this shift. Abdomen very distended. Bowel sounds active. Fluid restriction. Call light in reach.
[2024-08-08] MEDS: ALBUTEROL-HFA 90MCG/PUFF INHALER 8GM 2 PUFF IH (06:18)
[2024-08-08 06:26] LABS: Basophils % 0.4 % (0.1-2.0); Eosinophils # 0.2 K/mm3 (0.0-0.4); Eosinophils % 1.9 % (0.1-12.0); Hematocrit 31.4 % (42.0-52.0); Hemoglobin 10.7 g/dL (14.1-18.0); Lymphocytes # 2.4 K/mm3 (0.7-4.5); Mean Corpuscular HGB Conc 34.1 g/dL (31.8-35.4); Mean Platelet Volume 10.8 fl (7.4-10.4); Neutrophils # 5.5 K/mm3 (1.8-7.8); Neutrophils % 60.4 % (37.0-80.0); Nucleated Red Blood Cells # 0 10^3/uL; Nucleated Red Blood Cells % 0 %; Platelet Count 106 K/mm3 (142-424); Red Blood Count 3.34 M/mm3 (4.60-6.20); Red Cell Distribution Width 15.7 % (11.5-17.5); Red Cell Distribution Width-SD 53.9 fL; White Blood Count 9.1 K/mm3 (4.8-10.8)
[2024-08-08] MEDS: LEVOTHYROXINE 25MCG (0.025MG) TAB 25 MCG PO (06:40)
[2024-08-08 06:46] LABS: Albumin Level 2.4 g/dl (3.5-5.0); Chloride 97 mmol/L (98-107); Potassium 3.7 mmoL/L (3.5-5.1); Sodium 131 mmol/L (136-145)
[2024-08-08 06:48] LABS: Alanine Aminotransferase 25 U/L (12-78); Alkaline Phosphatase 144 U/L (38-126); Anion Gap 8.7 mEq/L (5-15); Aspartate Amino Transferase 61 U/L (17-59); Bilirubin,Total 2.3 mg/dl (0.2-1.3); Blood Urea Nitrogen 13 mg/dl (9-20); Carbon Dioxide 29 mmol/L (22.0-30.0); Creatinine Clearance Estimated 128 mL/min (50-200); Estimated Glomerular Filt Rate 101 ml/min (>60); GFR (African American) 122 ML/MIN (>60)
[2024-08-08 06:49] LABS: Albumin/Globulin Ratio 0.9 (1.1-1.8); Calcium 8.1 mg/dl (8.4-10.2); Globulin 2.6 g/dL (1.3-3.2); Glucose 152 mg/dl (74-100); Magnesium 1.7 mg/dl (1.6-2.3)
[2024-08-08 07:49] VITALS: BP 100/49; PULSE 76; RESP 17; TEMP 36.5; O2SAT 97
[2024-08-08 07:57] VITALS: BP 103/50
[2024-08-08] MEDS: METOPROLOL SUCCINATE XL 25MG TABLET 25 MG PO (08:07)
[2024-08-08] MEDS: MAGNESIUM OXIDE 400MG TABLET 400 MG PO (08:07)
[2024-08-08] MEDS: TRAMADOL 50MG TABLET 50 MG PO ×2 (08:07→20:26)
[2024-08-08] MEDS: FOLIC ACID 1MG TABLET 1 MG PO (08:07)
[2024-08-08] MEDS: POTASSIUM CHLORIDE 20MEQ TAB 40 MEQ PO (08:08)
[2024-08-08] MEDS: SPIRONOLACTONE 25MG TABLET 200 MG PO (08:08)
[2024-08-08] MEDS: ENOXAPARIN 40MG/0.4ML SYRINGE 40 MG SUBCUT (08:08)
[2024-08-08] MEDS: FUROSEMIDE 100MG/10ML VIAL 80 MG IV ×2 (08:09→16:22)
[2024-08-08] MEDS: MAGNESIUM SULFATE IN WATER 2 GM/50 ML PIGGYBACK IV ×2 (09:00→10:00)
--- NOTE | 2024-08-08 11:02 | US_ITS ---
FINAL REPORT CLINICAL HISTORY: therapeutic // para not performed due to pt not having enough fluid to drain // ross acosta FINDINGS: Limited sonographic images of the abdomen were obtained. There is a small amount of ascites but insufficient fluid for paracentesis. IMPRESSION: Small amount of ascites but insufficient fluid for paracentesis. Reviewed, Interpreted and Dictated by Nena Ledezma MD Transcribed by Lucrecia Helm Authenticated and [facility]
[2024-08-08 11:38] LABS: POC Glucose,Bedside 176 (70-110)
--- NOTE | 2024-08-08 13:01 | EXP.MED.FU ---
Subjective *Date: 08/08/24 *Time: 13:01 Interval history: Patient alert and oriented x 3, sitting up in the chair eating lunch. No appetite concerns. Following a low-sodium, high-protein diet. Continues to leak fluid from the peritoneal cyst site. Has had an increase in abdominal girth since yesterday and an increase in abdominal discomfort in the upper abdomen. Minimal ascitic fluid seen on ultrasound, not enough for paracentesis. Patient has had interval improvement in bilateral lower extremity edema. Greater than 5 kg weight loss since admission. Mild interval improvement of LFTs with bilirubin of 2.3, AST of 61, ALT of 25 and alk phos of 144. Albumin low at 2.5. He is currently 85.4 kg. Very slight elevation of alpha-fetoprotein at 8.8 in the setting of chronic alcoholism. No abnormal hepatic lesions on multiple imaging over the past couple of months. Exam Data for Last 24 hours Vital signs and Labs for Last 24 Hours: Temp Pulse Resp BP Pulse Ox O2 Del Method O2 Flow Rate 97.7 F 76 17 103/50 L 97 Room Air 2 08/08/24 07:49 08/08/24 07:49 08/08/24 07:49 08/08/24 07:57 08/08/24 07:49 08/08/24 11:00 08/06/24 20:00 FiO2 20 08/07/24 08:00 Laboratory Results - last 24 hr 08/06/24 16:20: POC Glucose 188 H 08/08/24 05:16: WBC 9.1, RBC 3.34 L, Hgb 10.7 L, Hct 31.4 L, MCV 94.0, MCH 32.0 H, MCHC 34.1, RDW 15.7, Plt Count 106 L, MPV 10.8 H, Neut % (Auto) 60.4, Lymph % (Auto) 26.0, [place] % (Auto) 11.0 H, Eos % (Auto) 1.9, Baso % (Auto) 0.4, Neut # (Auto) 5.5, Lymph # (Auto) 2.4, [place] # (Auto) 1.0, Eos # (Auto) 0.2, Baso # (Auto) 0.0, Sodium 131 L, Potassium 3.7, Chloride 97 L, Carbon Dioxide 29, Anion Gap 8.7, BUN 13 D, Creatinine 0.80 D, Estimated Creat Clear 128, Estimated GFR 101, Est GFR ( Amer) 122 D, Glucose 152 H, Calcium 8.1 L, Magnesium 1.7, Total Bilirubin 2.3 H, AST 61 H, ALT 25, Alkaline Phosphatase 144 H, Total Protein 5.0 L, Albumin 2.4 L, Globulin 2.6, Albumin/Globulin Ratio 0.9 L 08/08/24 11:25: POC Glucose 176 H I & O for Last 24 hours: Intake & Output 08/06/24 08/07/24 08/08/24 08/09/24 11:59 11:59 11:59 11:59 Intake Total 688 263 5335 Output Total 4450 2625 1475 Balance -3522 -1905 185 Weight 88.9 kg 88.9 kg 85.411 kg Microbiology Reports for the Last 24 Hours: Microbiology 08/04/24 22:55 Peritoneal Fluid Gram Stain - Final 08/04/24 22:55 Peritoneal Fluid Body Fluid Culture - Preliminary NO GROWTH AFTER 72 HOURS *Routine HEENT Exam Head: Present normocephalic and atraumatic *Routine Respiratory Exam Respiratory: Present rhonchi (Right lower lobe mild rhonchi in the base, CTA left lobe) *Routine Cardiovascular Exam Cardiovascular: Present RRR *Routine Abdominal Exam Abdominal: Present distended (Significant distention) *Routine Extremities Exam Extremities: Present edema (4++ pitting bilateral lower extremity edema with interval improvement of edema surrounding upper calves) *Routine Skin Exam Skin: Present wounds (Right lower abdomen sutured site of previous paracentesis, leaking fluid) *Routine Neurological Exam Neurological: Present alert, oriented X3, vision grossly intact, hearing grossly intact and normal speech Detailed Abdominal Exam Palpation/Percussion: Present dullness to percussion Hernia: Present epigastric Assessment and Plan *Assessment and plan (1) Alcohol abuse: Status: Acute Category: Social Hx Code(s): F10.10 - Alcohol abuse, uncomplicated (2) Decompensated hepatic cirrhosis: Status: Acute Category: Medical Code(s): K72.90 - Hepatic failure, unspecified without coma; K74.60 - Unspecified cirrhosis of liver (3) Thrombocytopenia: Status: Acute Category: Medical Code(s): D69.6 - Thrombocytopenia, unspecified (4) Transaminitis: Status: Acute Category: Medical Code(s): R74.01 - Elevation of levels of liver transaminase levels (5) Hyperbilirubinemia: Status: Acute Category: Medical Code(s): E80.6 - Other disorders of bilirubin metabolism (6) Hypokalemia: Status: Acute Category: Medical Code(s): E87.6 - Hypokalemia (7) Ascites: Status: Acute Qualifiers: Ascites type: due to alcoholic cirrhosis Qualified Code(s): K70.31 - Alcoholic cirrhosis of liver with ascites Category: Medical Code(s): R18.8 - Other ascites (8) Anasarca: Status: Acute Category: Medical Code(s): R60.1 - Generalized edema Plan 1. Decompensated hepatic cirrhosis/alcohol abuse Bilirubin improved to 2.5, AST of 62, ALT of 26 and an alk phos of 159. Has had elevated AST and alk phos for years with elevations in bilirubin beginning in August of last year. Admits to chronic alcoholism for 30+ years current MELD sodium score equals 22 points. He reports that he had 3 weeks of sobriety. Alcohol level was below 10 upon arrival in the ER. I expect slow continued improvement of his transaminitis and elevated bilirubin the longer he is sober. Given patient's extensive decompensated cirrhosis, he does need further follow-up as an outpatient but with a tertiary care center at this point and palns to do this with [facility]. He has declined . I would recommend a referral to [facility] at discharge. We discussed complete elimination of alcohol going forward and his mortality risk if he continues to drink ETOH after discharge. He does follow with Jeremias Boss to help with moving towards alcohol cessation and has a Zoom appointment on Tuesday which he can do on his own telephone. 2. Ascites/anasarca Has had a negative fluid balance with weight loss greater than 5-1/2 kg since admission. Mixed information about whether or not patient was actually taking his diuretics at home. Currently as an inpatient, patient on 200 mg of spironolactone p.o. daily plus Lasix 80 mg IV twice daily. May consider changing the IV Lasix to p.o. as IV can increase the risk of renal dysfunction and can get similar results with the p.o. Lasix. Recommend p.o. doses spironolactone and Lasix be given together in the morning which can improve diuretic effects as opposed to giving them sequentially. Recommend we work toward a 40 mg of Lasix to 100 mg of spironolactone balance. We have maximized Lasix dosing. I recommend we gradually continue moving towards maximizing spironolactone dosing. No evidence of azotemia, increased hepatic encephalopathy, potassium levels have normalized with replacement I recommend continuing a low-sodium high-protein diet. This patient is tolerating so well, I recommend increasing spironolactone to 400 mg p.o starting Tuesday with 80 mg of Lasix BID p.o. We discussed recommendation for evaluation of TIPS procedure with [facility] when he establishes care. I am happy to provide a standing order for PRN paracentesis at this hospital after discharge as long as he is following consistently with [facility]. If initial appointment with [facility] is very delayed, I am happy to see him for posthospitalization follow-up in the office.
[2024-08-08 16:00] VITALS: BP 108/65; PULSE 78; RESP 16; TEMP 36.6; O2SAT 94
[2024-08-08 16:34] LABS: POC Glucose,Bedside 149 (70-110)
[2024-08-08] MEDS: MULTIVITAMIN TABLET 1 EACH PO (17:29)
--- NOTE | 2024-08-08 17:29 | EXP.ACUTE.PN ---
Subjective *Date: 08/08/24 *Time: 17:29 Interval history: Complains of abdominal distention, mild pain. No fever. Pain mainly in upper abdomen from muscle stretch. Stable on room air. No nausea or vomiting. Tolerating p.o. intake. Having good urine output. Edema showing improvement in his leg Medical Exam Vital signs and Labs for Last 24 Hours: Vital Signs Temp Pulse Pulse Resp BP Pulse Ox O2 Del Method 08/08/24 16:00 97.9 F 78 16 108/65 L 94 L Room Air 08/08/24 15:00 Room Air 08/08/24 13:00 Room Air 08/08/24 11:00 Room Air 08/08/24 09:00 Room Air 08/08/24 08:00 Room Air 08/08/24 07:57 103/50 L 08/08/24 07:49 97.7 F 76 17 100/49 L 97 Room Air 08/08/24 07:00 Room Air 08/08/24 05:00 Room Air 08/08/24 04:00 98.3 F 87 16 99/45 L 94 L Room Air 08/08/24 04:00 90 08/08/24 03:00 Room Air 08/08/24 01:00 Room Air 08/08/24 00:00 98.0 F 88 16 94/49 L 93 L Room Air 08/08/24 00:00 75 08/07/24 23:00 Room Air 08/07/24 21:00 Room Air 08/07/24 20:00 80 08/07/24 20:00 Room Air 08/07/24 20:00 97.9 F 83 16 109/54 L 95 Room Air 08/07/24 17:40 Room Air Intake and Output 08/08/24 08/08/24 08/08/24 07:59 15:59 23:59 Intake Total 850 / 850 Output Total 775 / 925 150 / 925 Balance -775 / -75 850 / -75 -150 / -75 Intake: Intake, Oral Amount 750 / 750 Intake, Total IV Amount 100 / 100 Magnesium Sulfate in Water 2 gm 100 / 100 In 50 ml @ 50 mls/hr IV ONCE ONE Rx#:[id number] Output: Output, Urine Amount 775 / 775 Output, Pleural Fluid Amount 150 / 150 Other: Weight 85.411 kg Patient Weight 08/08/24 23:59 Weight 85.411 kg Laboratory Results - last 24 hr 08/06/24 16:20: POC Glucose 188 H 08/08/24 05:16: WBC 9.1, RBC 3.34 L, Hgb 10.7 L, Hct 31.4 L, MCV 94.0, MCH 32.0 H, MCHC 34.1, RDW 15.7, Plt Count 106 L, MPV 10.8 H, Neut % (Auto) 60.4, Lymph % (Auto) 26.0, [place] % (Auto) 11.0 H, Eos % (Auto) 1.9, Baso % (Auto) 0.4, Neut # (Auto) 5.5, Lymph # (Auto) 2.4, [place] # (Auto) 1.0, Eos # (Auto) 0.2, Baso # (Auto) 0.0, Sodium 131 L, Potassium 3.7, Chloride 97 L, Carbon Dioxide 29, Anion Gap 8.7, BUN 13 D, Creatinine 0.80 D, Estimated Creat Clear 128, Estimated GFR 101, Est GFR ( Amer) 122 D, Glucose 152 H, Calcium 8.1 L, Magnesium 1.7, Total Bilirubin 2.3 H, AST 61 H, ALT 25, Alkaline Phosphatase 144 H, Total Protein 5.0 L, Albumin 2.4 L, Globulin 2.6, Albumin/Globulin Ratio 0.9 L 08/08/24 11:25: POC Glucose 176 H 08/08/24 16:22: POC Glucose 149 H I & O for Labs for Last 24 Hours: Intake & Output 08/05/24 08/06/24 08/07/24 08/08/24 23:59 23:59 23:59 23:59 Intake Total 1320 / 1420 458 / 698 1560 / 1560 850 / 850 Output Total 3325 / 4425 5200 / 5200 1325 / 1950 925 / 925 Balance -2004 / -3005 -5612 / -4502 235 / -390 -75 / -75 Weight 88.67 kg 88.9 kg 88.9 kg 85.411 kg Microbiology Reports for the Last 24 Hours: Microbiology 08/04/24 22:55 Peritoneal Fluid Gram Stain - Final 08/04/24 22:55 Peritoneal Fluid Body Fluid Culture - Preliminary NO GROWTH AFTER 72 HOURS Constitutional: Present chronically ill appearing and cooperative Head: Present atraumatic and normocephalic ENT: Present normal exam Respiratory: Present normal respiratory effort; Absent rhonchi, wheezes or crackles Cardiac: Present Reg Rate and Rhythm GI: Present distention, tenderness (Mildly upper abdomen, appears muscular) and normal bowel sounds; Absent guarding or rebound Comments:: Continues to have serous drainage from previous paracentesis site in right lower abdomen Extremities: Present normal inspection, full ROM and edema (3+ to mid [place]) Skin: Present intact; Absent erythema Neuro: Present Grossly Intact, alert, awake, oriented x 3 and moves all extremities Assessment and Plan *Assessment and plan (1) Decompensated hepatic cirrhosis: Status: Acute Category: Medical Code(s): K72.90 - Hepatic failure, unspecified without coma; K74.60 - Unspecified cirrhosis of liver (2) Thrombocytopenia: Status: Acute Category: Medical Code(s): D69.6 - Thrombocytopenia, unspecified (3) Transaminitis: Status: Acute Category: Medical Code(s): R74.01 - Elevation of levels of liver transaminase levels (4) Hypomagnesemia: Status: Acute Category: Medical Code(s): E83.42 - Hypomagnesemia (5) Cirrhosis: Status: Acute Qualifiers: Hepatic cirrhosis type: alcoholic cirrhosis Ascites presence: with ascites Qualified Code(s): K70.31 - Alcoholic cirrhosis of liver with ascites Category: Medical Code(s): K74.60 - Unspecified cirrhosis of liver (6) Hypokalemia: Status: Acute Category: Medical Code(s): E87.6 - Hypokalemia (7) Hyponatremia: Status: Acute Category: Medical Code(s): E87.1 - Hypo-osmolality and hyponatremia (8) Ascites: Status: Acute Qualifiers: Ascites type: due to alcoholic cirrhosis Qualified Code(s): K70.31 - Alcoholic cirrhosis of liver with ascites Category: Medical Code(s): R18.8 - Other ascites (9) Smoking greater than 30 pack years: Status: Chronic Category: Social Hx Code(s): F17.210 - Nicotine dependence, cigarettes, uncomplicated (10) Dyspnea on exertion: Status: Acute Category: Medical Code(s): R06.09 - Other forms of dyspnea Plan Charlie Davis is a 54-year-old male with a medical history significant for alcoholic cirrhosis presented with worsening abdominal distention and was admitted for decompensated cirrhosis. Tolerating diuretics. Continue aggressive diuresis. Physician oral diuretics. Continue to monitor overnight. Not enough fluid on bedside ultrasound for paracentesis today. Anticipate discharge in the next day or 2. Problems addressed as follows: #Decompensated alcoholic cirrhosis #Pulmonary edema #Significant ascites #Anasarca ? Patient states he ran out of his Lasix a few weeks ago and has not refilled it or followed up with his PCP. ? Gross signs of volume overload with anasarca and significant abdominal ascites/distention on admission. Stable on room air ? MELD score 24, ~15% 90-day mortality rate. Has quit drinking alcohol recently. ? S/p paracentesis, pigtail drain removed 08/06/2024. Still draining serous fluid/ascites from paracentesis site. No concern for SBP at this time. -6 L from abdomen. Received albumin replacement. ?Continue Lasix, transition to oral 80 mg twice daily. Maximize spironolactone 200 mg twice daily ? AFP elevated at 8. Hepatitis C negative. ? Fluid restriction 1500 mL. High-protein diet. ? GI consulted, pending further recommendations. #Hyponatremia #Hypokalemia #Hypomagnesemia ? Sodium 131, chloride 97, potassium 3.7, magnesium 1.7. Kidney function stable with BUN 13, creatinine 0.8. - Repleting potassium with p.o. to avoid further IV fluids. Continuous cardiac telemetry. #COPD #Current tobacco user ? Continue home Anoro Ellipta, DuoNebs/albuterol as needed. Patient prefers albuterol. #Former alcohol use disorder ? Patient has been sober for 2 weeks. Discussing with peers support, will follow-up with [facility]. DNR/DNI DVT prophylaxis: Lovenox 40 mg
--- NOTE | 2024-08-08 17:59 | PC.NURSE ---
Pt has done well this shift. VSS. Remains on room air and is tolerating well. I did change the dressing over his old pigtail drain site to a urostomy bag from a dry dressing per MD and it is collecting peritoneal fluid well. Pt states that it feels much better as the tape with dressing changes was making his skin very tinder. Diuresing well. No complains this shift. Medicated per jun x1 for back pain.
[2024-08-08 19:49] VITALS: BP 102/63; PULSE 84; RESP 18; TEMP 36.9; O2SAT 96
[2024-08-08 20:14] LABS: POC Glucose,Bedside 190 (70-110)
[2024-08-08] MEDS: LORazepam 1MG TABLET 1 MG PO (20:27)
[2024-08-08] MEDS: PANTOPRAZOLE 40MG TABLET 40 MG PO (20:27)
[2024-08-08] MEDS: hydrOXYzine pamoate 25MG CAPSULE 25 MG PO (20:27)
[2024-08-09] VITALS: BP 121/62; PULSE 97; RESP 17; TEMP 37.1; O2SAT 95
[2024-08-09 04:00] VITALS: BMI 26.9
[2024-08-09 05:46] LABS: POC Glucose,Bedside 153 (70-110)
[2024-08-09] MEDS: ALBUTEROL-HFA 90MCG/PUFF INHALER 8GM 2 PUFF IH (06:23)
[2024-08-09 07:00] LABS: Basophils % 0.4 % (0.1-2.0); Eosinophils # 0.2 K/mm3 (0.0-0.4); Eosinophils % 1.6 % (0.1-12.0); Hematocrit 32.6 % (42.0-52.0); Hemoglobin 11.3 g/dL (14.1-18.0); Lymphocytes # 2.6 K/mm3 (0.7-4.5); Lymphocytes % 24.2 % (10-50); Mean Corpuscular HGB Conc 34.7 g/dL (31.8-35.4); Mean Corpuscular Hemoglobin 32.3 pg (27.0-31.2); Mean Corpuscular Volume 93.1 fl (80-94); Mean Platelet Volume 10.9 fl (7.4-10.4); Monocytes # 1.1 K/mm3 (0.1-1.0); Monocytes % 10.7 % (1.7-9.3); Neutrophils # 6.7 K/mm3 (1.8-7.8); Neutrophils % 62.7 % (37.0-80.0); Nucleated Red Blood Cells # 0 10^3/uL; Nucleated Red Blood Cells % 0 %; Platelet Count 116 K/mm3 (142-424); Red Cell Distribution Width 15.4 % (11.5-17.5); Red Cell Distribution Width-SD 52.5 fL; White Blood Count 10.6 K/mm3 (4.8-10.8)
[2024-08-09 07:13] LABS: Chloride 97 mmol/L (98-107)
[2024-08-09 07:14] LABS: Albumin Level 2.8 g/dl (3.5-5.0); Potassium 3.9 mmoL/L (3.5-5.1); Sodium 131 mmol/L (136-145)
[2024-08-09 07:16] LABS: Anion Gap 10.9 mEq/L (5-15); Blood Urea Nitrogen 13 mg/dl (9-20); Carbon Dioxide 27 mmol/L (22.0-30.0); Creatinine Clearance Estimated 128 mL/min (50-200); Estimated Glomerular Filt Rate 101 ml/min (>60); GFR (African American) 122 ML/MIN (>60)
[2024-08-09 07:17] LABS: Alanine Aminotransferase 30 U/L (12-78); Alkaline Phosphatase 159 U/L (38-126); Aspartate Amino Transferase 72 U/L (17-59); Bilirubin,Total 2.8 mg/dl (0.2-1.3); Calcium 8.3 mg/dl (8.4-10.2); Globulin 2.8 g/dL (1.3-3.2); Glucose 161 mg/dl (74-100); Magnesium 2.1 mg/dl (1.6-2.3); Total Protein,Serum 5.6 g/dl (6.3-8.2)
[2024-08-09 08:00] VITALS: BP 98/56; PULSE 83; RESP 17; TEMP 36.5; O2SAT 92
[2024-08-09] MEDS: METOPROLOL SUCCINATE XL 25MG TABLET 25 MG PO (08:48)
[2024-08-09] MEDS: POTASSIUM CHLORIDE 20MEQ TAB 40 MEQ PO (08:48)
[2024-08-09] MEDS: FOLIC ACID 1MG TABLET 1 MG PO (08:48)
[2024-08-09] MEDS: MAGNESIUM OXIDE 400MG TABLET 400 MG PO (08:48)
[2024-08-09] MEDS: FUROSEMIDE 80 MG TABLET PO (08:49)
[2024-08-09] MEDS: SPIRONOLACTONE 25MG TABLET 200 MG PO (08:49)
[2024-08-09] MEDS: ENOXAPARIN 40MG/0.4ML SYRINGE 40 MG SUBCUT (08:49)
[2024-08-09] MEDS: TRAMADOL 50MG TABLET 50 MG PO (08:55)
--- NOTE | 2024-08-09 09:17 | P.DS_ITS ---
General Admission date:: 08/04/24 Discharge date: 08/09/24 HPI HPI HPI: A 45-year-old male with a history of alcoholic cirrhosis, tobacco dependence, chronic obstructive pulmonary disease (COPD), and recent alcohol cessation (last drink 2 weeks ago) presents to the emergency department for evaluation of abdominal distention, pain, and shortness of breath. The patient reports these symptoms began gradually over the past month, are constant, and have worsened, with associated nausea but no fevers or chills. He denies chest pain. He notes a prior admission for similar symptoms with electrolyte abnormalities. He is currently seeking a new gastroenterology physician and treatment for alcoholism. He was previously treated in the month of June for C. difficile colitis. He states he finished prescribed antibiotics and he has no return of diarrhea. The history was obtained directly from the patient during my personal history and physical exam. On examination, the patient is hemodynamically stable, alert, and oriented, Physical exam reveals a distended abdomen with mild tenderness on palpation, no rebound or guarding, and no organomegaly. Lungs show bilateral basilar crackles, likely related to low lung volumes or infiltrates, consistent with COPD and possible atelectasis. Cardiac exam is unremarkable, with no murmurs or jugular venous distension. No lower extremity edema is noted. Diagnostic workup includes labs showing leukocytosis (WBC 14.3 x10?/?L), mild anemia (hemoglobin 12.0 g/dL, hematocrit 33.9%), thrombocytopenia (platelets 129 x10?/?L), hyponatremia (sodium 127 mmol/L), hypokalemia (potassium 2.3 mmol/L), hypochloremia (chloride 88 mmol/L), elevated CO2 (34 mmol/L), low creatinine (0.60 mg/dL), and elevated glucose (134 mg/dL). Liver function tests reveal elevated total bilirubin (3.8 mg/dL), AST (62 U/L), alkaline phosphatase (196 U/L), low albumin (3.0 g/dL), and low total protein (6.0 g/dL), consistent with cirrhosis. Coagulation studies show prolonged PT (15.2 seconds) and INR (1.40). Magnesium is low (1.5 mg/dL), and lipase is normal (295 U/L). Right upper quadrant ultrasound demonstrates a cirrhotic liver with nodular contour, small perihepatic ascites, and nonspecific gallbladder wall thickening (6 mm) without gallstones. Chest X-ray shows bibasilar infiltrates versus atelectasis, with no pleural effusion or cardiomegaly. Treatments implemented in the emergency department include a paracentesis with removal of 3 L of ascitic fluid, with the catheter left in place for potential further drainage. No additional medications or fluids are noted as initiated in the ED. The patient was evaluated for admission due to ongoing symptoms, electrolyte abnormalities, and underlying cirrhosis. Per admission H & P This is a 54-year-old male with history of alcoholic cirrhosis. He reports he was diagnosed with cirrhosis in November for the first time. He was hospitalized with ascites and transferred to . It appears he underwent panendoscopy with possible varices banding. He denies ever having seen gastroenterology before. He denies seeing gastroenterology as an outpatient at . He never did follow- up at after the procedure. He reports he does not want to continue following at . He was referred to [facility] by his primary care but has not contacted their GI practice to schedule an appointment yet. He reports he would prefer to follow with [facility]. Patient currently has a bilirubin of 3.8, AST of 62, ALT of 31 and alk phos of 196. He has a 30+ year history of daily excessive alcohol consumption. He reports sobriety for the past 3 weeks. Alcohol level upon admission to the ER was less than 10. Viral hepatitis testing last month was all negative. Lipase within normal limits. Over the past couple of years patient has had persistently elevated liver enzymes, usually AST and alk phos, but bilirubin began to elevate in August 2023. He has struggled with low sodium, currently 127, MELD score currently equal to 22 points, was 23 points upon admission. Patient reports he has been on furosemide and spironolactone at home and has had worsening ascites and 4+ bilateral lower extremity pitting edema this been getting progressively worse at home. He was drinking excessive alcohol daily up until 3 weeks ago per report. Patient d enies symptoms of withdrawal at this point. Denies any symptoms of hepatic encephalopathy at home or currently. Significant abdominal discomfort all over and extremely distended with ascites. Drain in place right mid abdominal wall. Hospital Course Hospital Course Hospital Course: Charlie Davis is a 54-year-old male with a medical history significant for alcoholic cirrhosis presented with worsening abdominal distention and was admitted for decompensated cirrhosis. Tolerating diuretics. GI assisted with care. Stable to discharge home. Needs further management as an outpatient and referral to tertiary center for evaluation for possible transplant and to discuss TIPS if does not see improvement in distention/ascites with maximal diuresis. Problems addressed as follows: #Decompensated alcoholic cirrhosis #Pulmonary edema #Significant ascites #Anasarca ? Patient states he ran out of his Lasix a few weeks ago and has not refilled it or followed up with his PCP. Gross signs of volume overload with anasarca and significant abdominal ascites/distention on admission. Stable on room air. MELD score 24, ~15% 90-day mortality rate. Has quit drinking alcohol recently. Status post paracentesis on arrival. Drain was placed on 08/04, removed 08/06. Still having drainage from paracentesis site. Ostomy bag placed over site to collect fluid. Draining approximately a liter a day. Anticipate site will close in time. Stitch in place. Will need to be removed at follow-up with GI or PCP. GI was consulted during admission. Assisting with care. Recommend fluid restriction of 1500 cc a day, high-protein diet. Escalated to maximum diuretic therapy with Lasix oral 80 mg twice daily and spironolactone 200 mg twice daily. aFP obtained and elevated at 8. Hep C was negative. Given his tolerance of p.o. meds, stability on room air, stable to discharge home to continue treatment as an outpatient. Follow-up with GI in the coming weeks. #Hyponatremia #Hypokalemia #Hypomagnesemia ?Sodium stable low in the setting of cirrhosis. 131 on day of discharge with chloride 97. Potassium 3.9, magnesium 2.1. Stable with use of loop and spironolactone. Kidney function normal with BUN 12, creatinine 0.8. Will need repeat labs at follow-up including CBC, CMP, magnesium levels. #COPD #Current tobacco user ? Continue home Anoro Ellipta, DuoNebs/albuterol as needed. Patient prefers albuterol. Encouraged smoking cessation #Former alcohol use disorder ? Patient has been sober for 4 weeks. water resource engineering specialist was consulted and counseled patient during admission. Established referral to [facility] for follow-up to continue to abstain from alcohol given the severity of his cirrhosis. Patient appears motivated at this time. Total time spent on discharge 32 minutes in counseling, documentation, chart review, and direct care with patient. Exam Data for Last 24 hours Vital signs and Labs for Last 24 Hours: Temp Pulse Resp BP Pulse Ox O2 Del Method O2 Flow Rate 98.8 F 97 H 17 121/62 95 Room Air 2 08/09/24 00:00 08/09/24 00:00 08/09/24 00:00 08/09/24 00:00 08/09/24 00:00 08/09/24 06:46 08/06/24 20:00 FiO2 20 08/07/24 08:00 Laboratory Results - last 24 hr 08/08/24 11:25: POC Glucose 176 H 08/08/24 16:22: POC Glucose 149 H 08/08/24 20:03: POC Glucose 190 H 08/09/24 05:35: POC Glucose 153 H 08/09/24 05:57: WBC 10.6, RBC 3.50 L, Hgb 11.3 L, Hct 32.6 L, MCV 93.1, MCH 32.3 H, MCHC 34.7, RDW 15.4, Plt Count 116 L, MPV 10.9 H, Neut % (Auto) 62.7, Lymph % (Auto) 24.2, [place] % (Auto) 10.7 H, Eos % (Auto) 1.6, Baso % (Auto) 0.4, Neut # (Auto) 6.7, Lymph # (Auto) 2.6, [place] # (Auto) 1.1 H, Eos # (Auto) 0.2, Baso # (Auto) 0.0, Sodium 131 L, Potassium 3.9, Chloride 97 L, Carbon Dioxide 27, Anion Gap 10.9, BUN 13, Creatinine 0.80, Estimated Creat Clear 128, Estimated GFR 101, Est GFR ( Amer) 122, Glucose 161 H, Calcium 8.3 L, Magnesium 2.1 D, Total Bilirubin 2.8 H, AST 72 H, ALT 30, Alkaline Phosphatase 159 H, Total Protein 5.6 L, Albumin 2.8 L D, Globulin 2.8, Albumin/Globulin Ratio 1.0 L I & O for Last 24 hours: Intake & Output 08/06/24 08/07/24 08/08/24 08/09/24 23:59 23:59 23:59 23:59 Intake Total 458 / 698 1560 / 1560 1330 / 1450 120 / 120 Output Total 5200 / 5200 1325 / 1950 1625 / 2125 500 / 500 Balance -4742 / -4502 235 / -390 -295 / -675 -380 / -380 Weight 88.9 kg 88.9 kg 85.411 kg 85.411 kg Microbiology Reports for the Last 24 Hours: Microbiology 08/04/24 22:55 Peritoneal Fluid Gram Stain - Final 08/04/24 22:55 Peritoneal Fluid Body Fluid Culture - Preliminary NO GROWTH AFTER 4 DAYS Constitutional Constitutional: no acute distress, cachectic, chronically ill appearing and cooperative *Routine HEENT Exam Head: Present normocephalic Eye: Present EOMI and PERRL ENT: Present mucous membranes moist Comments: Loss of periorbital fat *Routine Neck Exam Neck: Present supple; Absent lymphadenopathy Routine Chest/Breast/Axilla Exam Comments: Prominent ribs *Routine Respiratory Exam Respiratory: Present CTA bilaterally; Absent rhonchi or wheezes *Routine Cardiovascular Exam Cardiovascular: Present RRR *Routine Abdominal Exam Abdominal: Present soft, normoactive bowel sounds, tenderness (Mild, upper abdomen consistent with muscular strain) and distended; Absent rebound or guarding Comments: Draining wound from paracentesis catheter right lower abdomen. Leaking ascites fluid that is clear yellow *Routine Rectal Exam Patient deferred: visual exam *Routine Exam Patient deferred: penile exam *Routine Extremities Exam Extremities: Present edema (2+ to knees); Absent cyanosis or clubbing *Routine Skin Exam Skin: Present warm; Absent rash *Routine Neurological Exam Neurological: Present alert, oriented X3 and moving all extremities; Absent altered mental status Results Data Completed and Pending Labs on day of discharge: Labs from last 24 hours 08/09/24 08/09/24 08/08/24 05:57 05:35 20:03 WBC 10.6 RBC 3.50 L Hgb 11.3 L Hct 32.6 L MCV 93.1 MCH 32.3 H MCHC 34.7 RDW 15.4 Plt Count 116 L MPV 10.9 H Neut % (Auto) 62.7 Lymph % (Auto) 24.2 [place] % (Auto) 10.7 H Eos % (Auto) 1.6 Baso % (Auto) 0.4 Neut # (Auto) 6.7 Lymph # (Auto) 2.6 [place] # (Auto) 1.1 H Eos # (Auto) 0.2 Baso # (Auto) 0.0 Sodium 131 L Potassium 3.9 Chloride 97 L Carbon Dioxide 27 Anion Gap 10.9 BUN 13 Creatinine 0.80 Estimated Creat Clear 128 Estimated GFR 101 Est GFR ( Amer) 122 Glucose 161 H POC Glucose 153 H 190 H Calcium 8.3 L Magnesium 2.1 D Total Bilirubin 2.8 H AST 72 H ALT 30 Alkaline Phosphatase 159 H Total Protein 5.6 L Albumin 2.8 L D Globulin 2.8 Albumin/Globulin Ratio 1.0 L 08/08/24 08/08/24 16:22 11:25 WBC RBC Hgb Hct MCV MCH MCHC RDW Plt Count MPV Neut % (Auto) Lymph % (Auto) [place] % (Auto) Eos % (Auto) Baso % (Auto) Neut # (Auto) Lymph # (Auto) [place] # (Auto) Eos # (Auto) Baso # (Auto) Sodium Potassium Chloride Carbon Dioxide Anion Gap BUN Creatinine Estimated Creat Clear Estimated GFR Est GFR ( Amer) Glucose POC Glucose 149 H 176 H Calcium Magnesium Total Bilirubin AST ALT Alkaline Phosphatase Total Protein Albumin Globulin Albumin/Globulin Ratio Preliminary micro results at discharge 08/04/24 22:55 Body Fluid Culture - Preliminary Peritoneal Fluid NO GROWTH AFTER 4 DAYS DS: Diagnosis Discharge Diagnosis (1) Decompensated hepatic cirrhosis: Status: Acute Code(s): K72.90 - Hepatic failure, unspecified without coma; K74.60 - Unspecified cirrhosis of liver (2) Thrombocytopenia: Status: Acute Code(s): D69.6 - Thrombocytopenia, unspecified (3) Transaminitis: Status: Acute Code(s): R74.01 - Elevation of levels of liver transaminase levels (4) Hypomagnesemia: Status: Acute Code(s): E83.42 - Hypomagnesemia (5) Cirrhosis: Status: Acute Code(s): K74.60 - Unspecified cirrhosis of liver Qualifiers: Ascites presence: with ascites Hepatic cirrhosis type: alcoholic cirrhosis Qualified Code(s): K70.31 - Alcoholic cirrhosis of liver with ascites (6) Hypokalemia: Status: Acute Code(s): E87.6 - Hypokalemia (7) Hyponatremia: Status: Acute Code(s): E87.1 - Hypo-osmolality and hyponatremia (8) Ascites: Status: Acute Code(s): R18.8 - Other ascites Qualifiers: Ascites type: due to alcoholic cirrhosis Qualified Code(s): K70.31 - Alcoholic cirrhosis of liver with ascites (9) Smoking greater than 30 pack years: Status: Chronic Code(s): F17.210 - Nicotine dependence, cigarettes, uncomplicated (10) Dyspnea on exertion: Status: Acute Code(s): R06.09 - Other forms of dyspnea Meds Home Medications and Allergies Home Medications ?Medication ?Instructions ?Recorded ?Confirmed ?Type blood sugar diagnostic (True #50 ea 04/13/23 08/05/24 Rx Metrix Glucose Test Strip) metoprolol succinate 25 mg 25 mg PO DAILY #30 tabs 05/08/24 08/05/24 Rx tablet,extended release 24 hr hydroxyzine pamoate 25 mg capsule 25 - 50 mg PO HSP PRN Sleep 06/22/24 08/05/24 History trazodone 150 mg tablet 150 mg PO HS 06/22/24 08/05/24 History albuterol sulfate 90 mcg/actuation 2 puff inhalation Q4HP PRN 06/25/24 08/05/24 Rx aerosol inhaler (Ventolin HFA) Shortness Of Breath Or Wheezing #8.5 grams methocarbamol 500 mg tablet 500 mg PO HS #30 tabs 07/23/24 08/05/24 Rx ipratropium 0.5 mg-albuterol 3 mg 3 ml inhalation Q4HP PRN Shortness 07/25/24 08/05/24 History (2.5 mg base)/3 mL nebulization Of Breath soln potassium chloride 20 mEq 20 meq PO BID 07/25/24 08/05/24 History tablet,extended release levothyroxine 25 mcg tablet 25 mcg PO DAILY 08/05/24 08/05/24 History topiramate 25 mg tablet 25 mg PO BID 08/05/24 08/05/24 History tramadol 50 mg tablet 50 mg PO HS PRN Pain 08/05/24 08/05/24 History umeclidinium 62.5 mcg-vilanterol 1 inh inhalation DAILY 08/05/24 08/05/24 History 25 mcg/actuation powdr for inhalation (Anoro Ellipta) furosemide 80 mg tablet 80 mg PO BIDL 30 days #60 tabs 08/09/24 Rx lactulose 20 gram oral packet 20 g PO DAILY #30 ea 08/09/24 Rx magnesium oxide 400 mg (241.3 mg 400 mg PO DAILY 30 days #30 tabs 08/09/24 Rx magnesium) tablet pantoprazole 40 mg tablet,delayed 40 mg PO HS 30 days #30 tabs 08/09/24 Rx release spironolactone 100 mg tablet 200 mg (2 x 100 mg) PO BIDL 30 08/09/24 Rx days #120 tabs New Prescriptions to Start Prescriptions: Favian Llamas lactulose Favian Salas magnesium oxide Favian Salas pantoprazole Favian Salas spironolactone Favian Salas Allergies Allergy/AdvReac Type Severity Reaction Status Date / Time amoxicillin AdvReac Hives Verified 07/25/24 08:09 Penicillins AdvReac Hives Verified 07/25/24 08:09 Discharge Plan Disposition Patient Disposition: Home, Self-Care Condition: Fair Discharge Order Discharge Orders: Discharge Order (Routine); Ordered 08/09/24 Ordered By: Favian Salas Follow up Plan Follow up with: Alberto Escobedo II, MD [Staff Physician] - 09/12/24 9:30 am Suzanne Ames MD [Staff Physician] - 08/14/24 9:40 am Prescriptions/Medication Reconciliation: New magnesium oxide 400 mg (241.3 mg magnesium) Tablet 400 mg PO DAILY 30 Days Qty: 30 0RF furosemide 80 mg Tablet 80 mg PO BIDL 30 Days Qty: 60 0RF pantoprazole 40 mg Tablet,Delayed Release (Dr/Ec) 40 mg PO HS 30 Days Qty: 30 0RF spironolactone 100 mg tablet 200 mg PO BIDL 30 Days Qty: 120 0RF lactulose 20 gram packet 20 g PO DAILY Qty: 30 0RF Continued metoprolol succinate 25 mg tablet extended release 24 hr 25 mg PO DAILY Qty: 30 2RF ipratropium-albuterol 0.5 mg-3 mg(2.5 mg base)/3 mL solution for nebulization 3 ml inhalation Q4HP PRN (Reason: Shortness Of Breath) Patient Comments: INHALE THE CONTENTS OF 1 VIAL VIA NEBULIZER 4 TIMES DAILY NEEDED FOR SHORTNESS OF BREATH OR WHEEZING. potassium chloride 20 mEq tablet extended release 20 meq PO BID Patient Comments: TAKE 1 TABLET BY MOUTH TWICE DAILY. (DME) True Metrix Glucose Test Strip Strip See Rx Instructions .Route Qty: 50 11RF Rx Instructions: As directed albuterol sulfate [Ventolin HFA] 90 mcg/actuation HFA aerosol inhaler 2 puff inhalation Q4HP PRN (Reason: Shortness Of Breath Or Wheezing) Qty: 8.5 3RF methocarbamol 500 mg tablet 500 mg PO HS Qty: 30 1RF trazodone 150 mg tablet 150 mg PO HS hydroxyzine pamoate 25 mg capsule 25 - 50 mg PO HSP PRN (Reason: Sleep) Patient Comments: TAKE 1 TO 2 CAPSULES BY MOUTH AT BEDTIME NIGHTLY NEEDED FOR SLEEP. levothyroxine 25 mcg tablet 25 mcg PO DAILY Patient Comments: TAKE 1 TABLET BY MOUTH ONCE DAILY topiramate 25 mg tablet 25 mg PO BID Patient Comments: TAKE 1 TABLET BY MOUTH AT BEDTIME FOR 1 WEEK THEN INCREASE TO 1 TABLET BY MOUTH TWICE DAILY THEREAFTER Anoro Ellipta 62.5-25 mcg/actuation blister with device 1 inh INHALATION DAILY Patient Comments: INHALE ONE PUFF INTO THE LUNGS ONCE DAILY tramadol 50 mg tablet 50 mg PO HS PRN (Reason: Pain) Patient Comments: TAKE 1 TABLET BY MOUTH NIGHTLY AT BEDTIME NEEDED FOR PAIN. Discontinued furosemide 40 mg tablet 40 mg PO BID Qty: 60 0RF Problem Reconciliation Problems Reviewed?: Yes Patient Discharge Instructions ACTIVITY: Continue current activity DIET: continue same diet Additional Instructions: Gavin Ansari- Marketing Operations Coordinator September 10 @ 10:30 AM [address] [facility] [place] [address] [address] Patient Instructions: Getting to the Heart of a Healthy Diet: Protein-Rich Foods, DI for Abdominal Paracentesis, DI for Cirrhosis, DI for Abdominal Pain-Adult, DI for Surgical Site Infection, Fluid Restricted Diet, Tips for Adding Protein - Diet, Stop Light COPD Print Language: Cuban Providers Primary Care Provider: Provider,Referral Admit Provider: Pedro Li Attending Provider: Pedro Li
--- NOTE | 2024-08-10 10:28 | SW/DCPLANNER ---
Spoke with patient on the phone. Patient stated that he is doing well. Patient stated that he is aware of his appointments but not the time and i went over the times with him. Patient stated that he wasnt able to get his medicine picked up and that he is going to see if a friend can get it. Patient stated that he has no concerns or questions at this time. Hebert Ortiz
== END 2024-08-09 10:45 | disposition home or self-care (01) | DRG 433 ==
LOC: ER 22:33 → 2ND 23:26
PROVIDERS: Nurse Practitioner Family; Admitting Provider Student in an Organized Health Care Education/Training Program; Emergency Provider Emergency Medicine; Visit Provider Student in an Organized Health Care Education/Training Program
DX: K70.40 Alcoholic hepatic failure without coma (principal); E87.1 Hypo-osmolality and hyponatremia; K70.31 Alcoholic cirrhosis of liver with ascites; F10.20 Alcohol dependence, uncomplicated; J44.9 Chronic obstructive pulmonary disease, unspecified; D72.829 Elevated white blood cell count, unspecified; E83.42 Hypomagnesemia; F17.210 Nicotine dependence, cigarettes, uncomplicated; R74.01 Elevation of levels of liver transaminase levels; E11.9 Type 2 diabetes mellitus without complications; R06.09 Other forms of dyspnea; D69.6 Thrombocytopenia, unspecified; R60.1 Generalized edema; G47.33 Obstructive sleep apnea (adult) (pediatric); Y90.0 Blood alcohol level of less than 20 mg/100 ml; E87.6 Hypokalemia; Z80.9 Family history of malignant neoplasm, unspecified; Z88.0 Allergy status to penicillin; Z88.1 Allergy status to other antibiotic agents; Z79.899 Other long term (current) drug therapy; Z79.890 Hormone replacement therapy; Z79.4 Long term (current) use of insulin; Z91.148 Patient's other noncompliance with medication regimen for other reason
CPT/HCPCS: 36415; 49082; 71045; 76705; 80048; 80053; 80320; 80329; 81001; 82105; 82962; 83690; 83735; 84100; 84439; 84443; 85025; 85610; 85730; 86803; 87070; 87205; 87389; 89051; 94640; 97162; 99285; J1650; J1938; J3475; J3480; J7620; P9047

== ENCOUNTER 2024-09-07 18:43 | Outpatient (CLI) | payer MEDICAID, SELFPAY ==
[2024-09-07 19:14] LABS: Anion Gap 11.8 mEq/L (5-15); Blood Urea Nitrogen 13 mg/dl (9-20); Calcium 9.2 mg/dl (8.4-10.2); Carbon Dioxide 21 mmol/L (22.0-30.0); Chloride 100 mmol/L (98-107); Estimated Glomerular Filt Rate 101 ml/min (>60); GFR (African American) 122 ML/MIN (>60); Glucose 152 mg/dl (74-100); Potassium 3.8 mmoL/L (3.5-5.1); Sodium 129 mmol/L (136-145)
== END 2024-09-07 23:59 | disposition home or self-care (01) ==
LOC: LAB 18:44
PROVIDERS: PCP Family Medicine; Visit Provider Family Medicine
DX: E87.6 Hypokalemia (principal)
CPT/HCPCS: 80048

== ENCOUNTER 2024-12-04 09:40 | Outpatient (CLI) | payer MEDICAID, SELFPAY ==
[2024-12-04 15:11] LABS: Hematocrit 38.2 % (42.0-52.0); Hemoglobin 12.9 g/dL (14.1-18.0); Immature Granulocytes % 0.1 %; Mean Corpuscular HGB Conc 33.8 g/dL (31.8-35.4); Mean Corpuscular Hemoglobin 32.1 pg (27.0-31.2); Mean Corpuscular Volume 95.0 fl (80-94); Nucleated Red Blood Cells % 0 %; Platelet Count 91 K/mm3 (142-424); Red Blood Count 4.02 M/mm3 (4.60-6.20); Red Cell Distribution Width-SD 54.4 fL; White Blood Count 8.9 K/mm3 (4.8-10.8)
[2024-12-04 16:19] LABS: Alanine Aminotransferase 32 U/L (12-78); Albumin Level 3.8 g/dl (3.5-5.0); Albumin/Globulin Ratio 1.5 (1.1-1.8); Alkaline Phosphatase 175 U/L (38-126); Anion Gap 11.1 mEq/L (5-15); Aspartate Amino Transferase 59 U/L (17-59); Bilirubin,Total 4.1 mg/dl (0.2-1.3); Blood Urea Nitrogen 9 mg/dl (9-20); Calcium 9.2 mg/dl (8.4-10.2); Carbon Dioxide 23 mmol/L (22.0-30.0); Chloride 104 mmol/L (98-107); Creatinine,Serum 0.70 mg/dl (0.66-1.25); Estimated Glomerular Filt Rate 118 ml/min (>60); GFR (African American) 142 ML/MIN (>60); Globulin 2.5 g/dL (1.3-3.2); Glucose 104 mg/dl (74-100); Potassium 4.1 mmoL/L (3.5-5.1); Sodium 134 mmol/L (136-145); Total Protein,Serum 6.3 g/dl (6.3-8.2)
--- OUTSIDE RECORDS SUMMARY | 2024-12-05 11:10 | XMS_ITS ---
Author Organization Healthcare Address [address] [place] [address] Care Team Providers Care Layer Up Name Role Phone System, Provider Not In MD Primary Care Provider Unavailable Transplant Episode Liver Candidate [facility] ([place], [place]) - [facility] Referred on 12/06/2023 Marked as Deferred on 11/26/2024 Reason: Patient Choice Liver CoordinatorAngy Rodgers RN Fax: N/A Email: N/A Scores Score Value Updated Expires Exceptions/[place] sons CPRA Not available MELD (Calc) 19 12/09/2023 [place] Organ Diagnosis Organ Primary Contributory Liver Alcohol-Associated C irrhosis Without Acute Alcohol-Associated Hepatitis Care Team Name Role Phone Fax Email Angy Rodgers RN Liver Coordinator [phone] N/A N/A Events Pre-Transplant Referred: 12/06/2023 Committee: 12/12/2023
--- OUTSIDE RECORDS SUMMARY | 2024-12-05 11:10 | XMS_ITS | Clinical Summary ---
Author Organization [facility] Address [address] [place] [address] Phone Care Team Providers Care Data Warehouse Architect Name Role Phone Unavailable Primary Care Provider Unavailabl e Allergies Active Allergy Reactions Criticality Noted Date Comments Penicillins Hives 10/27/2021 Medications aspirin 81 mg Oral Tablet, Delayed Release (E.C.)Indications:T ype 2 diabetes mellitus with hyperlipidemia (HCC) Take by mouth daily. Active Blood Sugar Diagnostic (TRUE METRIX GLUCOSE TEST STRIP) [facility] StripIndications:Ty pe 2 diabetes mellitus with hyperlipidemia (HCC) by [facility].(Non-Dr ug; Combo Route) route. Testing 2-3 a week Active budesonide-glycopyr -formoterol (BREZTRI AEROSPHERE) 160-9-4.8 mcg/actuation Inhl HFA Aerosol InhalerIndications: COPD, moderate (HCC) Inhale 1 Puff into the lungs 2 times daily. 10.7 g 11 2 Active traMADoL (ULTRAM) 50 mg Oral TabletIndications:D egenerative lumbar disc Take 1 Tablet by mouth 2 times daily as needed for Pain. 60 Tablet 3 Active traZODone (DESYREL) 150 mg Oral TabletIndications:I nsomnia, persistent Take 1 Tablet by mouth nightly. 30 Tablet 3 3 Active atorvastatin (LIPITOR) 20 mg Oral TabletIndications:T ype 2 diabetes mellitus with hyperlipidemia (HCC) Take 1 Tablet by mouth nightly. 30 Tablet 3 3 Active albuterol (PROVENTIL HFA;VENTOLIN HFA) 90 mcg/actuation Inhl HFA Aerosol InhalerIndications: COPD, moderate (HCC) Inhale 2 Puffs into the lungs every 4 hours as needed for Wheezing. 18 g 3 Active methocarbamoL (ROBAXIN) 500 mg Oral Tablet Take 1 Tablet by mouth 4 times daily as needed for muscle spasms. 120 Tablet 3 Active Active Problems Problem Noted Date Diagnosed Date Hepatomegaly 01/14/2022 COPD, moderate 12/17/2021 Overview (12/17/2021): Smoker Needs lung imaging d/t chronic cough rx for breztri for respiratory sx. Cigarette nicotine dependence without complicati on 12/17/2021 Overview (12/17/2021): 1ppd Encouraged cessation. Type 2 diabetes mellitus with hyperlipidemia Overview (12/17/2021): Went from 11.9 to 5.4 in 2 mos Not on meds, diet control, BS 90-150 IRIS and Micro obtained. Insomnia, persistent 12/17/2021 Overview (12/17/2021): Continue trazodone. Mood disorder 12/17/2021 Overview (12/17/2021): Mostly depression, Stable off wellbutrin. Degenerative lumbar disc 12/17/2021 Overview (12/17/2021): Stable with prn use of flexeril and tramadol Ok to resume med mgmt CSA signed, HB1 collected Danny review, no documented fills, as expected Will refill once we get HB1 results. Abnormal EKG 12/17/2021 Overview (12/17/2021): -inverted t-wave 10/2021 during episode of CP, 2 neg trop, several cardiac risk factors, recommend cardiology followup. Alcohol abuse 12/17/2021 Overview (12/17/2021): Drinks 4-5 bourbon/day Stressed importance of reduction. Immunizations Immunization Administration Dates Next Due Moderna SARS-CoV-2 Vaccine 12+ Yrs (Light blue b order) 09/01/2020,08/04/2020 Surgical History Surgery Date Site/Laterality Comments INGUINAL HERNIA REPAIR 12/16/2019 Right Medical History Medical History Date Comments COPD (chronic obstructive pulmonary disease) (HC C) Heart abnormality Type 2 diabetes mellitus without complications ( HCC) Family History Medical History Relation Name Comments Cancer Father Breast Cancer Mother No Known Problems Sister Relation Name Status Comments Father Maternal Grandfather Maternal Grandmother Mother Paternal Grandfather Paternal Grandmother Sister Alive Social History Tobacco Use Types Packs/Day Years Used Date Smoking Tobacco: Every Day Cigarettes 1 42 Started: 02/23/2019 Smokeless Tobacco: Never Alcohol Use Standard Drinks/Week Comments Yes 0 (1 standard drink = 0.6 oz pur e alcohol) 4-5 glasses of bourbon/day PHQ-2 Answer Date Recorded PHQ-2 Total Score 0 12/17/2021 Sexually Active Control Partners Comments Yes Female Sex and Gender Information Value Date Recorded Sex Assigned at Not on file Legal Sex Male 6:20 PM EDT Gender Identity Not on file Sexual Orientation Not on file Obstetrics History Last Filed Vital Signs Vital Sign Reading Time Taken Comments Blood Pressure 140/80 01/13/2022 9:19 AM EDT Pulse 88 01/13/2022 9:19 AM EDT Temperature 37 C (98.6 F) 12/17/2021 2:03 PM EDT Respiratory Rate 18 12/17/2021 2:03 PM EDT Oxygen Saturation 98% 01/13/2022 9:19 AM EDT Inhaled Oxygen Concentration - - Weight 81 kg (178 lb 9.6 oz) 01/13/2022 9:19 AM EDT Height 177.8 cm (5' 10 ) 01/13/2022 9:19 AM EDT Body Mass Index 25.63 01/13/2022 9:19 AM EDT Plan of Treatment Health Maintenance Due Date Last Done Comments Diabetic Eye Exam 1988 DTaP/TDaP/Td (1 - Tdap) 1989 Hepatitis B Vaccine (1 of 3 - 19+ 3-dose series) 1989 Pneumococcal Vaccine 50+ (1 of 2 - PCV) 1989 Cologuard 2015 FIT 2015 Sigmoidoscopy 2015 Virtual Colonography 2015 Zoster (1 of 2) 2020 Annual Wellness Exam 12/17/2022 12/17/2021 Kidney Health: eGFR 12/17/2022 12/17/2021, 10/27/2021 Kidney Health: uACR 12/17/2022 12/17/2021 Lipids 12/17/2022 12/17/2021 COVID-19 Vaccine (2023-2 5 season) 2023 09/01/2020, 08/04/2020 Hemoglobin A1c 06/04/2024 12/03/2023, 12/17/2021 Influenza Vaccine (#1) 2024 Colon Cancer Screening 12/07/2033 Colonoscopy 12/07/2033 12/08/2023 Meningococcal B Vaccine Aged Out No l onger eligible based on patient's age to complete this topic Goals Goal Patient Goal Type Associated Problems Recent Progress Patient-Stated? Author Blood Pressure < 140/90 Blood Pressure 140/80(2021 9:19 AM EDT) No Hector, Jeanette, [employer] REPAIRER BMI (Calculated) < 30 General 25.7(01/14/20 9:19 AM EDT) No Hector, Jeanette, [employer] REPAIRER Maintain a healthy diet, exercise regularly and maintain an ideal body weight General No Hector, Jeanette, [employer] REPAIRER Stay Tobacco Free Lifestyle No Thayne, Jeanette, [employer] REPAIRER HEMOGLOBIN A1C < 7.0 Result Component 6.1( 2:48 PM EDT) No Thayne, Jeanette, [employer] REPAIRER Procedures Procedure Name Priority Date/Time Associated Diagnosis Comments COMPREHENSIVE METABOLIC PANEL Routine 12/17/2021 2:48 PM EDT Annual physical exam LIPID SCREEN Routine 12/17/2021 2:48 PM EDT Lipid screening HEMOGLOBIN A1C Routine 12/17/2021 2:48 PM EDT Type 2 diabetes mellitus with hyperlipidemia (HCC) from Last 3 Months or Most Recently Relevant to Health Maintenance Results * (ABNORMAL) HEMOGLOBIN A1C (12/17/2021 2:48 PM EDT) Hgb A1C 6.1(H) 4.2 - 5.6 % 12/17/2021 8:18 PM EDT [facility] Est. Avg Glucose 128 mg/dL 12/17/2021 8:18 PM EDT [facility] Blood VENOUS BLOOD / Unknown Venipuncture / Unknown 12/17/2021 2:48 PM EDT 12/17/2021 2:48 PM EDT Narrative [facility] - 12/17/2021 8:18 PM EDT REFERENCE RANGE: Normal: 4.0-5.6% Pre-diabetes: 5.7-6.4% Provisional diagnosis of diabetes: >6.4% Hgb F>10% and anything which shortens red cell survival, such as hemolytic anemia, or unstable hemoglobin variants such as HbSS, HbSC, or HbCC, will lower the HbA1c value associated with a given level of glycemic control. Jeanette Young APRN CHEMISTRY ORDERABLES Final Result [facility], [facility] [address] [facility] , [address] [place] [id number] * (ABNORMAL) LIPID SCREEN (12/17/2021 2:48 PM EDT) Pathologist [facility] Cholesterol 132 <200 mg/dL 12/17/2021 8:16 PM EDT [facility], [employer] Comment: < 200 Desirable 200 - 239 Borderline High >= 240 High Triglyceride 262(H) <150 mg/dL 12/17/2021 8:16 PM EDT [employer], [employer] Comment: < 150 Normal 150 - 199 Borderline High 200 - 499 High >= 500 Very High HDL 29(L) >=40 mg/dL 12/17/2021 8:16 PM EDT [facility], [employer] Comment: > 60 Optimal 40 - 60 Acceptable < 40 Low LDL Calculated 61 <100 mg/dL 12/17/2021 8:16 PM EDT [employer], [employer] Comment: < 100 Optimal 100 - 129 Near or above optimal 130 - 159 Borderline High 160 - 189 High >= 190 Very High Non-HDL-C Calculated 103 <=129 mg/dL 12/17/2021 8:16 PM EDT [facility] Comment: <130 Desirable 130-159 Above Desirable 160-189 Borderline High 190-219 High >= 220 Very High Fasting Specimen? No None 022 8:16 PM EDT [facility] Blood VENOUS BLOOD / Unknown Venipuncture / Unknown 12/17/2021 2:48 PM EDT 12/17/2021 2:48 PM EDT us Jeanette Young EXHA[employer] AND MU[employer] REPAIRER CHEMISTRY ORDERABLES Final Result [facility], [facility] [address] [facility] , [address] [address] [facility] [address] [place] [address] * (ABNORMAL) COMPREHENSIVE METABOLIC PANEL (12/17/2021 2:48 PM EDT) Sodium 139 136 - 145 mmol/L 12/17/2021 8:18 PM EDT [facility] Potassium 3.0(L) 3.5 - 5.0 mmol/L 12/17/2021 8:18 PM EDT [facility], [facility] Chloride 96(L) 98 - 107 mmol/L 12/17/2021 8:18 PM EDT [facility] Total CO2 26 22 - 29 mmol/L 12/17/2021 8:18 PM EDT [facility] Anion Gap 17(H) 7 - 16 mmol/L 12/17/2021 8:18 PM EDT [facility] Calcium 10.1 8.6 - 10.4 mg/dL 12/17/2021 8:18 PM EDT [facility] Glucose Lvl 103(H) 74 - 100 mg/dL 12/17/2021 8:18 PM EDT [facility] BUN 3(L) 6 - 20 mg/dL 12/17/2021 8:18 PM EDT [facility] Creatinine 0.53(L) 0.67 - 1.30 mg/dL 12/17/2021 8:18 PM EDT [facility] Albumin 4.2 3.5 - 5.2 gm/dL 12/17/2021 8:18 PM EDT [facility] Total Protein 6.6 6.4 - 8.3 gm/dL 12/17/2021 8:18 PM EDT [facility] Bili Total 0.6 0.1 - 1.4 mg/dL 12/17/2021 8:18 PM EDT [facility] ALT 42(H) <=41 U/L 12/17/2021 8:18 PM EDT [facility] AST 60(H) <=40 U/L 12/17/2021 8:18 PM EDT [facility] Alk Phos 129 40 - 129 U/L 12/17/2021 8:18 PM EDT [facility] eGFR (CKD-EPIcr 2020) 121 >=60 mL/min/1.7 3 m2 12/17/2021 8:18 PM EDT [facility] Comment:Estimated GFR was ca lculated using the CKD-EPIcr (2020) equation refit without race. The equation is recommended by the National Kid[employer] - [place] [employer] of Nephrology Task Force. Blood VENOUS BLOOD / Unknown Venipuncture / Unknown 12/17/2021 2:48 PM EDT 12/17/2021 2:48 PM EDT Jeanette Young EXHA[employer] AND MUFFLER REPAIRER CHEMISTRY ORDERABLES Final Result [facility], [facility] [address] [facility] [address] [place] [id number] [facility] [address] [place] [id number] from Last 3 Months or Most Recently Relevant to Health Maintenance Insurance [facility]
--- OUTSIDE RECORDS SUMMARY | 2024-12-05 11:10 | XMS_ITS | Patient Health Record ---
Author Organization [facility] Address [address] [place] [address] Care Team Providers Care Plater Production Name Role Phone Kusum Hoffmann Primary Care Provider Pedro Cota [phone] Allergies Allergen (clinical drug ingredient) Drug/Non Drug Allergy documented on EMR Reaction Allergy Type Onset Date Status penicillin hives Drug Allergy Active Reason For Referral No Information Medications Medication SIG (Take, Route, Frequency, Duration) Notes Start Date End Date Status Aspirin 81 81 MG 1 tab(s) p.o. daily Not-Taking Atorvastatin Calcium 20 MG 1 tablet Oral ly Once a day Not-Taking Crutches-Aluminum - as directed 11/15/2019 Active metFORMIN HCl 500 MG 1 tablet with a laura l Orally bid Active Glimepiride 1 MG 1 tablet with breakfast or the first main meal of the day Orally Once a day Active traMADol HCl 50 MG 1 tablet as needed Orally Once a day Active Cyclobenzaprine HCl 10 MG 1 tab(s) orally daily Active ProAir HFA Active traZODone HCl 100 MG 1 tab(s) p.o. daily Active Plan Of Treatment No Information Insurance Providers Payer Name Payer Address Payer Phone Subscriber Number Group Number Insured Name Patient Relationship to Insured Coverage Start Date Coverage End Date [facility] [address] ATTN CLAIMS JOSEPH GUPTA [phone] [id number] INGRID BURDICK Self - patient is the insured Medical (General) History Medical History History ICD Code depression high cholesterol diabetes mellitus Surgical History Surgery Date(Month/Year) inguinal hernia repair Hospitalization History Reason Date(Month/Year) see above
--- OUTSIDE RECORDS SUMMARY | 2024-12-05 11:10 | XMS_ITS | Clinical Summary ---
Author Organization [facility] Address [address] [place] [address] Care Team Providers Care Application Security Architect Name Role Phone System, Provider Not In MD Primary Care Provider Unavailable Allergies Active Allergy Reactions Criticality Noted Date Comments Penicillin G Hives,Nausea,Vomiting Medium 12/08/2023 Medications albuterol (Ventolin HFA) 108 (90 Base) MCG/ACT inhaler Inhale 2 puffs 4 (four) times a day. Active hydrOXYzine pamoate (Vistaril) 25 MG capsule Take 1 capsule (25 mg) by mouth 2 (two) times a day. Active ipratropium-alb uterol (Duo-Neb) 0.5-2.5 mg/3 mL nebulizer solution Take 3 mL by nebulization every 6 (six) hours if needed for wheezing. Active levothyroxine (Synthroid, Levoxyl) 25 MCG tablet Take 1 tablet (25 mcg) by mouth 1 (one) time each day before breakfast. Active traMADol (Ultram) 50 MG tablet Take 1 tablet (50 mg) by mouth 1 (one) time each day. Active traZODone (Desyrel) 150 MG tablet Take 1 tablet (150 mg) by mouth every night. Active spironolactone (Aldactone) 100 MG tablet Take 1 tablet (100 mg) by mouth 1 (one) time each day. 30 each 4 Active furosemide (Lasix) 40 MG tablet Take 1 tablet (40 mg) by mouth 1 (one) time each day. 30 tablet 4 Active nicotine (Nicoderm CQ) 21 MG/24HR patch Place 1 patch on the skin 1 (one) time each day. 30 patch 4 Active Umeclidinium-Vi lanterol (Anoro) 62.5-25 MCG/ACT aerosol powder aerosol powder Inhale 1 Inhalation 1 (one) time each day. 5 kit 4 Active Active Problems Problem Noted Date Diagnosed Date Cirrhosis 12/03/2023 Family History Medical History Relation Name Comments Breast cancer Mother Relation Name Status Comments Mother Social History Tobacco Use Types Packs/Day Years Used Date Smoking Tobacco: Every Day Cigarettes Smokeless Tobacco: Never Alcohol Use Standard Drinks/Week Comments Yes 0 (1 standard drink = 0.6 oz pure alcohol) Pt drinks 1/2-1 pint whiskey. No ETOH in 2 weeks Humiliation, Afraid, Rape, and Kick questionnair e Answer Date Recorded Within the last year, have y ou been afraid of your partner or ex-partner? No 12/05/2023 Within the last year, have y ou been humiliated or emotionally abused in other ways by your partner or ex-partner? No Within the last year, have y ou been kicked, hit, slapped, or otherwise physically hurt by your partner or ex-partner? No 12/05/2023 Within the last year, have y ou been raped or forced to have any kind of sexual activity by your partner or ex-partner? No 12/05/2023 Social Connection and Isolation Panel Answer Date Recorded In a typical week, how many times do you talk on the phone with family, friends, or neighbors? More than three times a week 12/05/2023 How often do you get togethe r with friends or relatives? More than three times a week 12/05/2023 How often do you attend chur [employer] or voodoo services? Never 12/05/2023 Do you belong to any clubs o r organizations such as taoism groups, unions, fraternal or athletic groups, or school groups? No 12/05/2023 How often do you attend meet ings of the clubs or organizations you belong to? Never 12/05/2023 Are you , , di vorced, , never , or living with a partner? Never 12/05/2023 AUDIT-C Answer Date Recorded Q1: How often do you have a drink containing alc ohol? 2-4 times a month 12/05/2023 Q2: How many drinks containi ng alcohol do you have on a typical day when you are drinking? 3 or 4 12/05/2023 Q3: How often do you have si x or more drinks on one occasion? Less than monthly 12/05/2023 [facility] - Occupational Stress Questionnaire Answer Date Recorded Do you feel stress - tense, restless, nervous, or anxious, or unable to sleep at night because your mind is troubled all the time - these days? Not at all 12/05/2023 Exercise Vital Sign Answer Date Recorde d On average, how many days pe r week do you engage in moderate to strenuous exercise (like a brisk walk)? 3 days 12/05/2023 On average, how many minutes do you engage in exercise at this level? 30 min 12/05/2023 Hunger Vital Sign Answer Date Recorded Within the past 12 months, y ou worried that your food would run out before you got the money to buy more. Never true 12/05/19 24 Within the past 12 months, t he food you bought just didn't last and you didn't have money to get more. Never true 12/05/2023 PRAPARE - Transportation Answer Date Re corded In the past 12 months, has l ack of transportation kept you from medical appointments or from getting medications? No 11/23 In the past 12 months, has l ack of transportation kept you from meetings, work, or from getting things needed for daily living? No 12/05/2023 Housing Stability Vital Sign Answer Mike e Recorded In the last 12 months, was t here a time when you were not able to pay the mortgage or rent on time? No 12/05/2023 In the last 12 months, how many places have you lived? 1 12/05/2023 In the last 12 months, was t here a time when you did not have a steady place to sleep or slept in a jail (including now)? No 12/05/2023 CAGE ASSESSMENT Answer Date Recorded Cage unable to access Not on file 12/03/2023 Cage max number of drinks Not on file 2023 Cage Beverages a week Not on file 12/03/2023 Have you ever felt you should CUT down on your d rinking? 0 12/03/2023 Have you been ANNOYED by people criticizing your drinking? 1 12/03/2023 Have you felt GUILTY about your drinking? 0 12/03/2023 Have you had a drink first t mando in the morning (E[employer]MA[employer]) to steady your nerves or to get rid of a hangover? 1 12/03/2023 CAGE Questionnaire Score 2 024 Utilities Answer Date Recorded In the past 12 months has th e [employer], [employer], oil, or water [employer] threatened to shut off services in your home? No 12/05/2023 Sex and Gender Information Value Date Recorded Sex Assigned at Not on file Legal Sex Male 3:29 AM EDT Gender Identity Not on file Sexual Orientation Not on file Last Filed Vital Signs Vital Sign Reading Time Taken Comments Blood Pressure 121/68 12/09/2023 2:50 PM EDT Pulse 85 12/09/2023 2:50 PM EDT Temperature 36.6 C (97.8 F) 12/09/2023 2:50 PM EDT Respiratory Rate 16 12/09/2023 7:56 AM EDT Oxygen Saturation 96% 12/09/2023 2:50 PM EDT Inhaled Oxygen Concentration - - Weight 85.9 kg (189 lb 6 oz) 12/09/2023 9:00 AM EDT Height 177.8 cm (5' 10 ) 12/09/2023 9:00 AM EDT Body Mass Index 27.17 12/09/2023 9:00 AM EDT Plan of Treatment Health Maintenance Due Date Last Done Comments [facility]-Depression Screening 1970 [facility]-/Child/Adol SDOH Screenings 1970 [facility]-DTaP,Tdap,and Td Vaccine s (1 - Tdap) 1989 [facility]-Hepatitis A Vaccines (1 of 2 - Risk 2-dose series) 1989 [facility]-Hepatitis B Vaccines (1 of 3 - 19+ 3-dose series) 1989 [facility]-Pneumococcal Vaccine: 50 + Years (1 of 2 - PCV) 1989 CT Colonography 2015 FIT-DNA 2015 FIT 2015 FOBT 2015 Sigmoidoscopy 2015 [facility]-Zoster Vaccines (1 of 2) 2020 [id number] Vaccine (3 - Moderna risk series) 09/29/2020 09/01/2020, 08/04/2020 [facility]- SDOH Screenings 06/06/2024 [facility]-Adult SDOH Screenings 06/06/2024 12/05/2023 [facility]-Influenza Vaccine (#1) 2024 Colonoscopy 12/07/2033 12/08/2023 [facility]-Colorectal Cancer Screening 12/07/2033 [facility]-HIV Screening Completed 12/03/2023 [facility]-Hepatitis C Screening Completed 12/03/2023 [facility]-Obesity Intervention Completed 024, 12/03/2023 HPV Vaccines Aged Out No longer eligi ble based on patient's age to complete this topic [facility]-HIB Vaccines Aged Out No longer e ligible based on patient's age to complete this topic [facility]-IPV Vaccines Aged Out No longer e ligible based on patient's age to complete this topic [facility]-Rotavirus Vaccines Aged Out No lo nger eligible based on patient's age to complete this topic Procedures Procedure Name Priority Date/Time Associated Diagnosis Comments COLONOSCOPY Routine 12/08/2023 4:17 PM EDT Alcoholic cirrhosis of liver with ascites (CMS/HCC) HEPATITIS C ANTIBODY - ED W/REFLEX TO HCV QUANT PCR STAT 12/03/2023 5:46 AM EDT ED HIV 1/2 ANTIBODY/ANTIGEN SCREEN WITH REFLEX TO HIV I/II DIFFERENTIATION STAT 12/03/2023 5:46 AM EDT from Last 3 Months or Most Recently Relevant to Health Maintenance Results * Colonoscopy (12/08/2023 4:17 PM EDT) Anatomical Region Laterality Modality Endoscopy Narrative 12/08/2023 4:27 PM EDT Table formatting from the original result was not included. Impression: Perianal exam without any abnormalities. Two pedunculated polyps seen in the sigmoid colon. 1 polyp was approximately 10mm in size. The surface appeared multilobulated with central depression. 2 biopsies obtained of this polyp to rule out dysplasia. 1 polyp was approximately 5 mm in size. Biopsy not taken due to poor prep. 1 rectal polyp was approximately 6mm in size, not biopsied due to poor prep. Multiple medium grade II varices (no red chante sign) in the rectum; no bleeding was identified Patchy erythematous mucosa in the rectosigmoid; no bleeding was identified Overall poor prep with presence of solid stool with in examined colon. Recommendations Await pathology results Return to Floor Schedule repeat colonoscopy - Will need repeat colonoscopy after discharge with 2 day prep and polypectomy at that time. Indication Hematochezia Medications See anesthesia record for anesthesia administered medications. Staff Staff Role Quang Groves MD Anesthesiologist Linda Villa MD No role selected Radha Mcnamara RN Endo Nurse Dayday Rodrigues MD Proceduralist Juan Victor MD Anesthesiologist Shyanne Simon CRNA, SANTOS Workman, Sujatha Endo Reel Stripper Preprocedure A history and physical has been performed, and patient medication allergies have been reviewed. The patient's tolerance of previous anesthesia has been reviewed. The risks and benefits of the procedure and the sedation options and risks were discussed with the patient. All questions were answered and informed consent obtained. Details of the Procedure The patient underwent general anesthesia, which was administered by an anesthesia professional. The patient's blood pressure, heart rate, level of consciousness, respirations and oxygen were monitored throughout the procedure. A digital rectal exam was performed. A perianal exam was performed. The scope was introduced through the anus and advanced to the sigmoid colon. The quality of bowel preparation was evaluated using the [place] Bowel Preparation Scale with scores of: right colon = not assessed, transverse colon = not assessed, left colon = 1. The total BBPS score was 1. Bowel prep was not adequate. The patient experienced no blood loss. The procedure was not difficult. The patient tolerated the procedure well. There were no apparent adverse events. Attestation I was present for the entire procedure Events Procedure Events Event Event Time Specimens ID Type Source Tests Collected by Time A : polyp bx Tissue Sigmoid Colon SURGICAL PATHOLOGY EXAM Dayday Rodrigues MD 12/08/2023 1606 Findings Perianal exam without any abnormalities. Two pedunculated polyps in the sigmoid colon. 1 polyp was approximately 10mm in size. The surface appeared multilobulated with central depression. 2 biopsies obtained of this polyp. 1 polyp was approximately 5 mm in size. Biopsy not taken due to poor prep. One pedunculated polyp in the rectum. 1 rectal polyp was approximately 6mm in size, not biopsies due to poor prep. Multiple medium grade II varices (no red chante sign) in the rectum; no bleeding was identified Patchy erythematous mucosa in the rectosigmoid; no bleeding was identified Performed multiple forceps biopsies in the sigmoid colon for dysplasia screening. Biopsy of pedunculated sigmoid colon polyp. Meghan Helms MD GI PROCEDURE ORDERABLES Final Result * ED HIV 1/2 Antibody/Antigen Screen w/Reflex to HIV 1/2 Differentiation (12/03/2023 5:46 AM EDT) Pathologist [facility] HIV 1 & 2 Antibody/Antigen Screen Non Reactive Non Reactive 12/03/2023 6:42 AM EDT [facility] Comment:Screening for HIV 1 & 2 antibodies, and P24 antigen is NONREACTIVE. No confirmatory testing is required. Blood Venous blood specimen / Unknown Venipuncture / Unknown 12/03/2023 5:46 AM EDT 12/03/2023 5:55 AM EDT Anneliese Zhong MD LAB BLOOD ORDERABLES Final R esult Performing Organization Address City/[facility] Co de Phone Number [facility] [address] [place] [address] * Hepatitis C Antibody - ED (12/03/2023 5:46 AM EDT) Pathologist [facility] Hepatitis C Antibody Negative Negative 12/03/2023 6:37 AM EDT [facility] Blood Venous blood specimen / Unknown Venipuncture / Unknown 12/03/2023 5:46 AM EDT 12/03/2023 5:55 AM EDT Loida Jameson MD LAB BLOOD ORDERABLES Final R esult Performing Organization Address City/[facility]/ZIP Co de Phone Number [facility] [address] [place] [address] from Last 3 Months or Most Recently Relevant to Health Maintenance Insurance MEDICAID Advance Directives * Full Code (Latest Code Status on File) Date Activated Date Inactivated Comments 12/03/2023 5:44 AM 12/09/2023 7:44 PM Question Answer Comments Patient has decision-making capacity? Yes Care Teams Application Security Architect Relationship Specialty Start Date End Date System, Provider Not In, [place] [address] PCP - General Family Medicine 12/03/23
--- OUTSIDE RECORDS SUMMARY | 2024-12-05 11:10 | XMS_ITS | Patient Health Record ---
Author Organization [facility] Address [address] [place], [place] [id number] Care Team Providers Care Starcher And Tenter Range Feeder Name Role Phone ALEXIS IWONA ALLY Primary Care Provider U navailable Allergies Allergen (clinical drug ingredient) Drug/Non Drug Allergy documented on EMR Reaction Allergy Type Onset Date Status penicillin G Penicillin G Sodium Unknown Drug Allergy Active Reason For Referral No Information Medications Medication SIG (Take, Route, Frequency, Duration) Notes Start Date End Date Status Cyclobenzaprine HCl 10 MG TAKE ONE TABLE T BY MOUTH THREE TIMES A DAY NEEDED Oral; Duration: 20 Active Ibuprofen 800 MG TAKE ONE TABLET BY MOUTH EVERY 8 HOURS NEEDED Oral; Duration: 30 Active traZODone HCl 100 MG TAKE ONE TABLET BY MOUTH AT BEDTIME Oral; Duration: 30 Active ProAir HFA 108 (90 Base) MCG/ACT INHALE 2 PUFFS EVERY 4 HOURS NEEDED Inhalation; Duration: 25 Active Atorvastatin Calcium 20 MG TAKE ONE TABL ET BY MOUTH AT BEDTIME Oral; Duration: 30 Active Social History Tobacco Use: Social History Observation Description Date Details (start date - stop date) Current Smoker NA - NA Tobacco Use/Smoking Question Answer Notes Are you a current smoker Alcohol Screen (Audit-C) Question Answer Notes Did you have a drink containing alcohol in the p ast year? Yes Points 0 Interpretation Negative Problems Problem Type SNOMED Code ICD Code Onset Dates Problem Status W/U Status Risk Notes Problem Fatty liver (K76.0) Active confirmed Plan Of Treatment No Information Insurance Providers Payer Name Payer Address Payer Phone Subscriber Number Group Number Insured Name Patient Relationship to Insured Coverage Start Date Coverage End Date [employer] [address] [place] [phone] [id number] INGRID BURDICK Self - patient is the insured 2018 Medical (General) History Medical History History ICD Code Arthritis M19.90 Hypercholesterolemia E78.00 Asthma J45.909
== END 2024-12-04 23:59 | disposition home or self-care (01) ==
LOC: LAB.DROPOF 12-05 11:07
PROVIDERS: PCP Nurse Practitioner; Visit Provider Nurse Practitioner
DX: K72.90 Hepatic failure, unspecified without coma (principal); K74.60 Unspecified cirrhosis of liver
CPT/HCPCS: 80053; 85025

== ENCOUNTER 2025-03-28 13:33 | Outpatient (CLI) | payer MEDICAID, SELFPAY ==
[2025-03-28 20:17] LABS: Hematocrit 37.6 % (42.0-52.0); Hemoglobin 13.4 g/dL (14.1-18.0); Immature Granulocytes % 0.5 %; Mean Corpuscular HGB Conc 35.6 g/dL (31.8-35.4); Mean Corpuscular Hemoglobin 32.2 pg (27.0-31.2); Mean Corpuscular Volume 90.4 fl (80-94); Nucleated Red Blood Cells % 0 %; Platelet Count 137 K/mm3 (142-424); Red Blood Count 4.16 M/mm3 (4.60-6.20); Red Cell Distribution Width-SD 46.0 fL; White Blood Count 12.0 K/mm3 (4.8-10.8)
[2025-03-28 20:39] LABS: Alanine Aminotransferase 97 U/L (12-78); Albumin Level 4.2 g/dl (3.5-5.0); Albumin/Globulin Ratio 1.4 (1.1-1.8); Alkaline Phosphatase 194 U/L (38-126); Anion Gap 11.3 mEq/L (5-15); Aspartate Amino Transferase 169 U/L (17-59); Bilirubin,Total 4.3 mg/dl (0.2-1.3); Blood Urea Nitrogen 15 mg/dl (9-20); Calcium 9.8 mg/dl (8.4-10.2); Carbon Dioxide 22 mmol/L (22.0-30.0); Chloride 88 mmol/L (98-107); Creatinine,Serum 0.70 mg/dl (0.66-1.25); Estimated Glomerular Filt Rate 117 ml/min (>60); GFR (African American) 142 ML/MIN (>60); Globulin 3.0 g/dL (1.3-3.2); Glucose 128 mg/dl (74-100); Potassium 4.3 mmoL/L (3.5-5.1); Sodium 117 mmol/L (136-145); Total Protein,Serum 7.2 g/dl (6.3-8.2)
--- OUTSIDE RECORDS SUMMARY | 2025-03-31 13:37 | XMS_ITS | Clinical Summary ---
Author Organization [facility] Address [address] [place] [address] Phone Care Team Providers Care Head Operator Name Role Phone Unavailable Primary Care Provider Unavailabl e Allergies Active Allergy Reactions Criticality Noted Date Comments Penicillins Hives 10/27/2021 Medications aspirin 81 mg Oral Tablet, Delayed Release (E.C.)Indications:T ype 2 diabetes mellitus with hyperlipidemia (HCC) Take by mouth daily. Active Blood Sugar Diagnostic (TRUE METRIX GLUCOSE TEST STRIP) [facility] StripIndications:Ty pe 2 diabetes mellitus with hyperlipidemia (HCC) by [facility].(Non-Dr ug; Combo Route) route. Testing 2-3 a [...] Drinks 4-5 bourbon/day Stressed importance of reduction. Encounters Date Type Department Care Team Description 01/31/2025 Travel from Last 3 Months Immunizations Immunization Administration Dates Next Due Moderna [...] Health Maintenance Due Date Last Done Comments Annual Wellness Exam 1973 Diabetic Eye Exam 1988 Kidney Health: uACR 1988 DTaP/TDaP/Td (1 - Tdap) 1989 Hepatitis B Vaccine (1 of 3 - 19+ 3-dose series) 1989 Pneumococcal Vaccine 50+ (1 of 2 - PCV) 1989 Cologuard 2015 FIT 2015 Sigmoidoscopy 2015 Virtual Colonography 2015 Zoster (1 of 2) 2020 Kidney Health: eGFR 12/17/2022 12/17/2021, 10/27/2021 Lipids 12/17/2022 12/17/2021 Hemoglobin A1c 06/04/2024 12/03/2023, 12/17/2021 COVID-19 Vaccine (3 - 2024-2 6 season) 2024 09/01/2020, 08/04/2020 Influenza Vaccine (#1) 2024 Colon Cancer Screening 12/07/2033 Colonoscopy 12/07/2033 12/08/2023 Meningococcal B Vaccine Aged Out No l onger eligible based on patient's age to complete this topic Goals Goal Patient Goal Type Associated Problems Recent Progress Patient-Stated? Author Blood Pressure < 140/90 Blood Pressure 140/80(2021 9:19 AM EDT) No Hector, Jeanette, LEAD SUPPLY WORKER BMI (Calculated) < 30 General 25.7(01/14/20 9:19 AM EDT) No [place], Jeanette, LEAD SUPPLY WORKER Maintain a healthy diet, exercise regularly and maintain an ideal body weight General No [place], Jeanette, LEAD SUPPLY WORKER Stay Tobacco Free Lifestyle No [place], Jeanette, LEAD SUPPLY WORKER HEMOGLOBIN A1C < 7.0 Result Component 6.1( 2:48 PM EDT) No [place], Jeanette, LEAD SUPPLY WORKER Procedures Procedure Name Priority Date/Time Associated Diagnosis [...] - 5.6 % 12/17/2021 8:18 PM EDT [facility] Est. Avg Glucose 128 mg/dL 12/17/2021 8:18 PM EDT [facility] Blood VENOUS BLOOD / Unknown Venipuncture / Unknown 12/17/2021 2:48 PM EDT 12/17/2021 2:48 PM EDT Narrative [facility] - 12/17/2021 8:18 PM EDT REFERENCE RANGE: Normal: 4.0-5.6% Pre-diabetes: 5.7-6.4% Provisional diagnosis of diabetes: >6.4% Hgb F>10% and anything which shortens red cell survival, such as hemolytic anemia, or unstable hemoglobin variants such as HbSS, HbSC, or HbCC, will lower the HbA1c value associated with a given level of glycemic control. Jeanette Young LEAD SUPPLY WORKER CHEMISTRY ORDERABLES Final Result [facility] [address] [facility] , [place] [address] * (ABNORMAL) LIPID SCREEN (12/17/2021 2:48 PM EDT) Cholesterol 132 <200 mg/dL 12/17/2021 8:16 PM EDT [facility] Comment: < 200 Desirable 200 - 239 Borderline High >= 240 High Triglyceride 262(H) <150 mg/dL 12/17/2021 8:16 PM EDT [facility] Comment: < 150 Normal 150 - 199 Borderline High 200 - 499 High >= 500 Very High HDL 29(L) >=40 mg/dL 12/17/2021 8:16 PM EDT [facility] Comment: > 60 Optimal 40 - 60 Acceptable < 40 Low LDL Calculated 61 <100 mg/dL 12/17/2021 8:16 PM EDT [facility] Comment: < 100 Optimal 100 - 129 Near or above optimal 130 - 159 Borderline High 160 - 189 High >= 190 Very High Non-HDL-C Calculated 103 <=129 mg/dL 12/17/2021 8:16 PM EDT [facility] Comment: <130 Desirable 130-159 Above Desirable 160-189 Borderline High 190-219 High >= 220 Very High Fasting Specimen? No None 022 8:16 PM EDT [facility] Blood VENOUS BLOOD / Unknown Venipuncture / Unknown 12/17/2021 2:48 PM EDT 12/17/2021 2:48 PM EDT Jeanette Young LEAD SUPPLY WORKER CHEMISTRY ORDERABLES Final Result [facility], [facility] [address] [facility], [place] [address] [facility] [address] [place] [address] * (ABNORMAL) COMPREHENSIVE METABOLIC PANEL (12/17/2021 2:48 PM EDT) Sodium 139 136 - 145 mmol/L 12/17/2021 8:18 PM EDT [facility] Potassium 3.0(L) 3.5 - 5.0 mmol/L 12/17/2021 8:18 PM EDT [facility] Chloride 96(L) 98 - 107 mmol/L 12/17/2021 8:18 PM EDT [facility] Total CO2 26 22 - 29 mmol/L [...] 8:18 PM EDT [facility] Albumin 4.2 3.5 - 5.2 gm/dL 12/17/2021 8:18 PM EDT [facility] Total Protein 6.6 6.4 - 8.3 gm/dL 12/17/2021 8:18 PM EDT [facility] Bili Total 0.6 0.1 - 1.4 mg/dL 12/17/2021 8:18 PM EDT [facility] ALT 42(H) <=41 U/L 12/17/2021 8:18 PM EDT [facility] AST 60(H) <=40 U/L 12/17/2021 8:18 PM EDT [facility] Alk Phos 129 40 - 129 U/L 12/17/2021 8:18 PM EDT [facility] eGFR (CKD-EPIcr 2020) 121 >=60 mL/min/1.7 3 m2 12/17/2021 8:18 PM EDT [facility] Comment:Estimated GFR was ca lculated using the CKD-EPIcr (2020) equation refit without race. The equation is recommended by the National Kidney Foundation - [place] [employer] Nephrology Task Force. Blood VENOUS BLOOD / Unknown Venipuncture / Unknown 12/17/2021 2:48 PM EDT 12/17/2021 2:48 PM EDT Jeanette Young APRN CHEMISTRY ORDERABLES Final Result [facility], [facility] [address] [facility] , [place] [address] [facility] [address] [place] [address] from Last 3 Months or Most Recently Relevant to Health Maintenance Insurance [facility]
--- OUTSIDE RECORDS SUMMARY | 2025-03-31 13:37 | XMS_ITS | Clinical Summary ---
Author Organization [facility] Address [address] [place] [address] Care Team Providers Care Technical Sales Engineer Name Role Phone System, Provider Not In [...] 12/05/2023 How often do you attend chur [employer] or nondenominational services? Never 12/05/2023 Do you belong to any clubs o r organizations such as nondenominational groups, unions, fraternal or athletic groups, or [...] on one occasion? Less than monthly 12/05/2023 [facility]ational Stress Questionnaire Answer Date [...] drink first t mando in the morning (EYE-LOGISTICS SPECIALIST) to steady your nerves or to get rid of a hangover? 1 12/03/2023 CAGE Questionnaire Score 2 024 Utilities Answer Date Recorded In the past 12 months has th [place], [employer], oil, or water [employer] threatened to shut off services in your [...] [facility]-Depression Screening 1970 [facility]-/Child/Adol SDOH Screenings 1970 [facility]- SDOH Screenings 1988 [facility]-Adult SDOH Screenings 1988 [facility]-DTaP,Tdap,and Td Vaccine s (1 - Tdap) 1989 [facility]-Hepatitis A Vaccines (1 of 2 - Risk 2-dose series) 1989 [facility]-Hepatitis B Vaccines (1 of 3 - 19+ 3-dose series) 1989 [facility]-Pneumococcal Vaccine: 50 + Years (1 of 2 - PCV) 1989 CT Colonography 2015 FIT-DNA 2015 FIT 2015 FOBT 2015 Sigmoidoscopy 2015 [facility]-Zoster Vaccines (1 of 2) 2020 [id number] Vaccine (3 - Moderna risk series) 09/29/2020 09/01/2020, 08/04/2020 [facility]-Influenza Vaccine (#1) 2024 Colonoscopy 12/07/2033 12/08/2023 [...] Juan Victor MD Anesthesiologist Shyanne Simon CRNA, Sujatha Escobar CRNA Endo Coroner/Medical Examiner Preprocedure A history and physical has been [...] of bowel preparation was evaluated using the [place] Bowel Preparation Scale with scores of: right [...] HIV 1/2 Differentiation (12/03/2023 5:46 AM EDT) HIV 1 & 2 Antibody/Antigen Screen Non Reactive Non Reactive 12/03/2023 6:42 AM EDT [facility] Comment:Screening for HIV 1 & 2 antibodies, and P24 antigen is NONREACTIVE. No confirmatory testing is required. Blood Venous blood specimen / Unknown Venipuncture / Unknown 12/03/2023 5:46 AM EDT 12/03/2023 5:55 AM EDT Anneliese Zhong MD LAB BLOOD ORDERABLES Final [facility] [address] [place] [address] * Hepatitis C Antibody - ED (12/03/2023 5:46 AM EDT) Hepatitis C Antibody Negative Negative 12/03/2023 6:37 AM EDT [facility] Blood Venous blood specimen / Unknown Venipuncture / Unknown 12/03/2023 5:46 AM EDT 12/03/2023 5:55 AM EDT Loida Jameson MD LAB BLOOD ORDERABLES Final R esult [facility] [address] [place] [address] from Last 3 Months or Most Recently Relevant to Health Maintenance Insurance MEDICAID Advance Directives * Full Code (Latest Code Status on File) Date Activated Date Inactivated Comments 12/03/2023 5:44 AM 12/09/2023 7:44 PM Question Answer Comments Patient has decision-making capacity? Yes Care Teams Technical Sales Engineer Relationship Specialty Start Date End Date System, Provider Not In, [place] [address] PCP - General Family Medicine 12/03/23
--- OUTSIDE RECORDS SUMMARY | 2025-03-31 13:37 | XMS_ITS | Patient Health Record ---
[facility] Address [address] [place] [address] Care Team Providers Care Recapper Name Role Phone Kusum Hoffmann Primary Care Provider Pedro Cota [phone] Allergies Allergen (clinical drug ingredient) Drug/Non Drug [...] Insured Coverage Start Date Coverage End Date [facility] [address] ATTN CLAIMS [place] [phone] [id number] INGRID BURDICK Self - patient is the insured Medical (General) History Medical History History ICD Code depression high cholesterol diabetes mellitus Surgical History Surgery Date(Month/Year) inguinal hernia repair Hospitalization History Reason Date(Month/Year) see above
--- OUTSIDE RECORDS SUMMARY | 2025-03-31 13:37 | XMS_ITS | Patient Health Record ---
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 Phone ALEXIS ALLY BUSTILLO Primary Care Provider U navailable Allergies Allergen (clinical drug ingredient) Drug/Non Drug Allergy documented on EMR Reaction Allergy Type Onset Date Status penicillin G Penicillin G Sodium Unknown Drug Allergy Active Reason For Referral No Information Medications Medication SIG (Take, Route, Frequency, Duration) Notes Start Date End Date Status Cyclobenzaprine HCl 10 MG Tablet TAKE ONE TABLET BY MOUTH THREE TIMES A DAY NEEDED Oral; Duration: 20 Active Ibuprofen 800 MG Tablet TAKE ONE TABLET BY MOUTH EVERY 8 HOURS NEEDED Oral; Duration: 30 Active traZODone HCl 100 MG Tablet TAKE ONE TAB LET BY MOUTH AT BEDTIME Oral; Duration: 30 Active ProAir HFA 108 (90 Base) MCG/ACT Aerosol Solution INHALE 2 PUFFS EVERY 4 HOURS NEEDED Inhalation; Duration: 25 Active Atorvastatin Calcium 20 MG Tablet TAKE ONE TABLET BY MOUTH AT BEDTIME Oral; Duration: 30 Active Social History Tobacco Use: Social History Observation Description Date Details (start date - stop date) Current Smoker NA - NA Social History Drugs/Alcohol: Social Info Question Answer Notes Alcohol Screen (Audit-C) Did you have a drink containing alcohol in the past year? Yes Points 0 Interpretation Negative Tobacco Use: Social Info Question Answer Notes Tobacco Use/Smoking Are you a current smoker Additional Details Category Social Info Options Details Miscellaneous: Caffeine: yes Problems Problem Type SNOMED Code ICD Code Onset Dates Problem Status W/U Status Risk Notes Problem Fatty liver (633673483) Fatty liver (K76.0) Active confirmed Plan Of Treatment No Information Insurance Providers Payer Name Payer Address Payer Phone Subscriber Number Group Number Insured Name Patient Relationship to Insured Coverage Start Date Coverage End Date [facility] [address] ATTN CLAIMS [facility] [place] [phone] [id number] HEAVENLY INGRID Self - patient is the insured 2018 Medical (General) History Medical History History ICD Code Arthritis M19.90 Hypercholesterolemia E78.00 Asthma J45.909
--- OUTSIDE RECORDS SUMMARY | 2025-03-31 13:37 | XMS_ITS | Encounter Summary ---
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 Answer Date of Assessment Author No 12/17/2021 2:01 PM JENNYT Darryl Mckinney CCMA * Is the person blind or does he/she have serious difficulty seeing even when wearing glasses? Answer Date of Assessment Author No 12/17/2021 2:01 PM EDT Darryl Mckinney CCMA * Does this person have serious difficulty walking or climbing stairs? Answer Date of Assessment Author No 12/17/2021 2:01 PM Darryl Cohn CCMA * Does this person have difficulty dressing or bathing? Answer Date of Assessment Author No 12/17/2021 2:01 PM EDT Darryl Mckinney CCMA * Because of a physical, mental or emotional condition, does this person have difficulty doing errands alone such as visiting a doctor's office or shopping? Answer Date of Assessment Author No 12/17/2021 2:01 PM EDT Darryl Mckinney CCMA documented as of this encounter Mental Status * Because of a physical, mental or emotional condition, does this person have serious difficulty concentrating, remembering or making decisions? Answer Entry Date Author No 12/17/2021 2:01 PM EDT Darryl Mckinney CCMA documented in this encounter Plan of Treatment Not on file documented as of this encounter Goals Goal Patient Goal Type Associated Problems Recent Progress Patient-Stated? 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
== END 2025-03-28 23:59 | disposition home or self-care (01) ==
LOC: LAB.DROPOF 03-31 13:34
PROVIDERS: PCP Nurse Practitioner; Visit Provider Nurse Practitioner
DX: K72.90 Hepatic failure, unspecified without coma (principal); K70.31 Alcoholic cirrhosis of liver with ascites; F10.10 Alcohol abuse, uncomplicated; R60.1 Generalized edema
CPT/HCPCS: 80053; 85025